=== PATIENT | female | born 1970 | race Caucasian/White ===

== ENCOUNTER 2024-02-08 04:40 | Inpatient (IN) | payer MEDICARE, OTHER, SELFPAY ==
[2024-02-08] VITALS (70 sets, daily range): BP systolic 70–130; BP diastolic 40–94; BMI 13.8
--- NOTE | 2024-02-08 01:26 | ED.GENMED ---
History of Present Illness
General
Chief Complaint: Fever
Source: patient and ambulance crew
Exam Limitations: dementia
Time Seen by Provider: 02/08/24 01:22
Travel History
Have you had any contact with someone who has COVID-19?: No
Do you have any symptoms of coronavirus? Fever > 100 degrees, chills, cough, shortness of breath, sore throat, loss of taste or smell, muscle aches, or headache?: Yes
Symptoms:: fever
History of Present Illness
History of Present Illness:
See MDM
Past History
Past History
ED Past Medical History: Hypercholesterolemia, Seizures, Psychiatric (Developmental delay, schizophrenia, bipolar disorder), Other (Chronic ambulatory dysfunction/wheelchair bound, scoliosis, chronic hypotension maintained on midodrine, UTI,
elevated LFTs) and Other (History of developmental delays, hyperlipidemia, indigestion, hypotonia, scoliosis, anxiety, bipolar disorder)
ED Past Surgical History: Other (History of corrective surgery to both eyes, back surgery for scoliosis, some teeth removed, corrective ear surgery at age 6)
Social History
Tobacco: Non-smoker
Alcohol: None
Personal: Single
Living: halfway
Employment: Disabled
Family History
Family History: Unable to obtain
Phy Exam
Physical Exam
Physical Exam:
See MDM
Course
Orders/Labs/Results
Orders:
Orders
02/08/24 01:12
EKG [Electrocardiogram (*1)] Urgent
Reason for Study: Tachycardia
02/08/24 01:13
EKG- Treatment ONCE
02/08/24 01:22
CBC/With Diff [Complete Blood Count/With Diff] Urgent
CMP [Comprehensive Metabolic Panel] Urgent
Lactic Acid Q4H
Comment: ON ICE, CANCEL 2ND ORDER IF FIRST LACTIC ACID LEVEL <2
02/08/24 01:25
0.9% Sodium Chloride 1000 ml [Nss] 1,000 ml IV BOLUS
CR Chest Portable - 1 View Urgent
Comment:
Reason For Exam: Fever, cough
Reason Study Needs to be Portable: Unable to Transport
02/08/24 01:27
COVID-19 Antigen Urgent
Source: Nasal Swab
Influenza A+B Rapid Molecular Urgent
ABEBE Source: Nasal Swab
Specimen Description:
02/08/24 01:42
Blood Culture Q30M
ABEBE Source: Blood/Venous
Specimen Description:
Comment: FROM 2 SEPARATE SITES
Blood Culture Q30M
ABEBE Source: Blood/Venous
Specimen Description:
Comment: FROM 2 SEPARATE SITES
02/08/24 02:00
CT Abd/pelvis W Iv Cont Urgent
Comment:
Reason For Exam: general abd pain, fever
02/08/24 02:28
0.9% Sodium Chloride 1000 ml [Nss] 1,000 ml IV BOLUS
Calcium Gluconate IV [Calcium Gluconate 10% 10 ml] 4.65 meq IV NOW STA
02/08/24 02:46
Urinalysis Reflex To Culture Urgent
Date Specimen was Collected: 02/08/24
Time Specimen was Collected: 02:02
Urine Microscopic Reflex Cult Urgent
Urine Culture Urgent
ABEBE Source: U
Specimen Description:
Date Specimen was Collected: 02/08/24
Time Specimen was Collected: 02:02
02/08/24 03:39
Dextrose 50%-Water [Dextrose 50% Syringe] 12.5 grams IV NOW STA
Abnormal Lab Results
02/08/24 02/08/24
01:22 02:46
RBC 3.32 L 10^6/uL
(4.20-5.40)
Hgb 10.7 L g/dL
(12.0-16.0)
Hct 29.8 L %
(37.0-47.0)
MCH 32.2 H pg
(27.0-31.0)
RDW 15.3 H %
(11.5-14.5)
MPV 10.5 H fL
(7.4-10.4)
Abs Immat Gran (auto) 0.1 H 10^3/uL
(0-0.05)
Immature Gran % 0.9 H %
(0-0.5)
Sodium 126 L mmol/L
(135-145)
Chloride 92 L mmol/L
(98-107)
Creatinine 0.5 L mg/dL
(0.6-1.0)
Glucose 63 L mg/dl
(70-99)
Calcium 6.9 L* mg/dl
(8.4-10.2)
Total Protein 4.5 L g/dl
(6.3-8.2)
Albumin 1.9 L g/dl
(3.5-5.0)
Leukocyte Esterase Rfl Trace A
(Negative)
Urine WBC (Reflex) 11-15 A /HPF
(0-5)
Urine Bacteria (Reflex) Moderate A
(Negative)
02/08/24 01:22
02/08/24 01:22
Vital Signs
Initial and Last Documented VS:
Initial Vital Signs
Temp Pulse Resp BP Pulse Ox
100.7 F H 92 19 92/60 98
02/08/24 01:14 02/08/24 01:14 02/08/24 01:14 02/08/24 01:14 02/08/24 01:14
Last Documented Vital Signs
Temp Pulse Resp BP Pulse Ox
100.7 F H 94 20 123/70 96
02/08/24 01:14 02/08/24 02:45 02/08/24 02:45 02/08/24 02:45 02/08/24 03:21
MDM/Problems Addressed
Differential Diagnosis Includes:
HPI and MDM Narrative:
53-year-old female presenting with fever and cough. Patient coming from nursing facility. Patient found to have a low blood pressure. She was given Tylenol prior to arrival.
Patient does appear to have mental delay. She does not offer much. She is frail and has rhonchorous breath sounds.
Physical exam
General: Weak and frail
HEENT: protecting airway. Dry mucous membranes
Neck: appears supple
CV: No evidence of cyanosis. Regular rate and rhythm
Resp: No accessory muscle use. Scattered rhonchi
Abd: Non-distended. Mild epigastric tenderness
Extremities: No deformities
Neuro: alert
Psych: flat affect
Skin: Warm
Problems Addressed including Acute and Chronic Conditions affecting care:
1. Fever
Acuity: acute
Prognosis: stable
Details: Patient given Tylenol prior to arrival. Will continue to monitor
2. Cough
Acuity: acute
Prognosis: stable
Details: Will check viral testing and chest x-ray
3. Hypotension
Acuity: acute
Prognosis: stable
Details: Likely in the setting of fever. Will obtain blood cultures lactic acid. IV fluids started
4. Hypocalcemia
Acuity: acute
Prognosis: unstable
Details: Patient given dose of IV calcium gluconate
5. Hypoglycemia
Acuity: Acute
Prognosis: Unstable
Details: Likely in the setting of malnourishment. Will give amp of glucose
Updates
Chest x-ray clear. Urinalysis seems contaminated and likely negative.
At this point, CT abdomen/pelvis performed which shows evidence of enterocolitis which could answer fever.
Given her lab abnormalities and malnourished state, will admit
Differential Diagnosis (but not limited to): COVID, influenza, pneumonia, sepsis
Testing considered: CT abdomen pelvis but no significant tenderness noted
Drug therapy (if applicable): OTC meds, please see d/c instruction regarding Rx drugs
Amount and/or Complexity of Data Reviewed
Clinical info obtained from: Patient
External data reviewed: N/A
Labs I independently reviewed (but not limited to): Hyponatremia, hypocalcemia, hypoglycemia
Radiology: X-ray independently reviewed: Chest x-ray clear
The CT scan was personally and independently reviewed. In addition, official CT report reviewed.
Pulse Ox: not hypoxic
EKG independently reviewed: Sinus rhythm, normal axis, no STEMI, artifact noted
Elevator Erector Helper: Sinus rhythm
Critical Care: Sinus rhythm
Risk of Complication:
Social Determinants of health: Poor social support
Discussed with other providers: Hospitalist
Escalation of Care includes Admit/Obs: Given the malnourished state with lab abnormalities, will admit
Occasional wrong word or 'sound a like' substitutions may have occurred due to the inherent limitations of voice recognition software. Read the chart carefully and recognize, using context, where substitutions have occurred.
*Critical Care Note
Total Time (30-74mins, 75-104mins- exclusive of procedures): Not Applicable
ED Attending Note
-
Portions of this chart may have been created with voice recognition software.� Occasional wrong word or��sound alike� substitutions may have occurred due to the inherent limitations of voice recognition software.
Discharge Plan
Departure
Patient Disposition: Admit
Date of Disposition: 02/08/24
Time of Disposition: 03:43
Admit to: Med/Surg
Presentation/result/management discussed w/ accepting MD/DO: Hospitalist
Discharge Problem:
Enterocolitis, Hypocalcemia, Caloric malnutrition, Hyponatremia, Hypoglycemia
Prescriptions:
No Action
benztropine 0.5 MG tablet
0.5 mg PO TID
risperidone 1 mg Tablet
1 mg PO DAILY
fluoxetine 20 mg capsule
20 mg PO BID
calcium carbonate-vitamin D3 [Oyster Shell Calcium-Vit D3] 500 mg-5 mcg (200 unit) Tablet
1 tab PO TID Qty: 0
magnesium oxide 500 mg Tablet
500 mg PO BID 30 Days Qty: 60 0RF
midodrine 5 mg Tablet
5 mg PO TID@0800,1300,1800 30 Days Qty: 90 0RF
acetaminophen 325 mg Tablet
650 mg PO Q4H PRN (Reason: mild pain/temp>100)
alprazolam 0.5 mg tablet
0.5 mg PO DAILY
aspirin 81 mg Tablet,Chewable
81 mg PO DAILY Qty: 90 0RF
multivitamin Tablet
1 tab PO DAILY
divalproex 250 mg Tablet,Delayed Release (Dr/Ec)
500 mg PO HS
divalproex 250 mg tablet,delayed release (DR/EC)
250 mg PO DAILY
magnesium hydroxide [Milk of Magnesia] 400 mg/5 mL Suspension
30 ml PO DAILY PRN (Reason: constipation)
bisacodyl [Dulcolax (bisacodyl)] 10 mg Suppository
10 mg [place] DAILY PRN (Reason: if mom ineffective)
Fleet Enema 19-7 gram/118 mL Enema
118 ml [place] DAILY PRN (Reason: if dulcolax ineffective)
potassium chloride 10 mEq tablet extended release
10 meq PO HS Qty: 30 0RF
Referrals:
Sean Ray I., DO [Family Provider] -
Interventions
Interventions:
*Risk Screen - Suicide Last Done: 02/08/24 01:14
*General Assessment Last Done: 02/08/24 01:14
*Neglect/Abuse Screening Last Done: 02/08/24 01:14
ED- Fall Risk Assessment Last Done: 02/08/24 02:02
*ED COVID-19 Vaccine History Last Done: 02/08/24 01:14
ED- Neurological Assessment Last Done: 02/08/24 02:02
ED-Skin Assessment Last Done: 02/08/24 02:02
[2024-02-08] MEDS: NSS 1000 IV ×2 (01:29→02:38)
[2024-02-08 01:36] LABS: % Eosinophils 0.1 % (0-6); % Immature Granulocytes 0.9 % (0-0.5); % Lymphocytes 32.7 % (20.5-51.1); % Monocytes 4.7 % (1.7-9.3); % Neutrophils 60.6 % (42.2-75.2); Absolute Basophils 0.1 10^3/uL (0-0.2); Absolute Immature Granulocytes 0.1 10^3/uL (0-0.05); Absolute Lymphocytes 2.7 10^3/uL (1.2-3.4); Absolute Monocytes 0.4 10^3/uL (0.1-0.6); Absolute Neutrophils 4.9 10^3/uL (1.4-6.5); Hematocrit 29.8 % (37.0-47.0); Hemoglobin 10.7 g/dL (12.0-16.0); Mean Corp Hgb Conc. 35.9 g/dL (33.0-37.0); Mean Corpuscular Hgb 32.2 pg (27.0-31.0); Mean Corpuscular Volume 89.8 fL (81.0-99.0); Mean Platelet Volume 10.5 fL (7.4-10.4); Nucleated Red Blood Cells % 0 %; Platelet Count 241 10^3/uL (130-400); Red Blood Cell Count 3.32 10^6/uL (4.20-5.40); Red Cell Dist. Width 15.3 % (11.5-14.5); White Blood Cell Count 8.1 10^3/uL (4.8-10.8)
[2024-02-08 01:51] LABS: COVID-19 Antigen Negative (Negative)
[2024-02-08 02:13] LABS: Lactic Acid 1.5 mmol/L (0.7-2.0)
[2024-02-08 02:26] LABS: ALT (SGPT) 20 U/L (0-35); AST (SGOT) 30 U/L (14-36); Albumin 1.9 g/dl (3.5-5.0); Alkaline Phosphatase 109 U/L (38-126); Blood Urea Nitrogen 15 mg/dl (7-17); Calcium 6.9 mg/dl (8.4-10.2); Carbon Dioxide 28 mmol/L (22-30); Chloride 92 mmol/L (98-107); Glucose 63 mg/dl (70-99); Potassium 4.7 mmol/L (3.5-5.1); Sodium 126 mmol/L (135-145); Total Bilirubin 0.4 mg/dl (0.2-1.3); Total Protein 4.5 g/dl (6.3-8.2); eGFR > 60.00
[2024-02-08] MEDS: CALCIUM GLUCONATE 10% 10 ML 4.65000000000000036 MEQ IV (02:38)
[2024-02-08 02:56] LABS: Urine Albumin Trace (Neg - Trace); Urine Bilirubin Negative (Negative); Urine Character Clear (Clear); Urine Color Yellow; Urine Glucose Negative (Negative); Urine Ketone Negative (Negative); Urine Leukocyte Trace (Negative); Urine Nitrite Negative (Negative); Urine Occult Blood Negative (Negative); Urine Specific Gravity 1.005 (<1.030); Urine Urobilinogen Negative (Neg - 1+)
[2024-02-08 03:12] LABS: Urine Amorphous Seen; Urine Squamous Cell >30 /LPF (Few)
[2024-02-08 03:13] LABS: Urine Red Blood Cell 0-2 /HPF (0-2)
[2024-02-08 03:14] LABS: Urine Bacteria Moderate (Negative); Urine Urothelial Cell >30 /LPF (FEW)
[2024-02-08] MEDS: DEXTROSE 50% SYRINGE 12.5 GRAMS IV (03:47)
--- NOTE | 2024-02-08 04:32 | HPS.HSE ---
Family Physician
-
Family Physician: Sean Ray
Chief Complaint
-
Fever / Hypotension
History of Present Illness
Patient is a 53y F with PMH significant for developmental delay, schizophrenia and chronic malnutrition who presents to ED from local [facility] for evaluation for fever and hypotension. History from the patient is limited due to baseline mental status.
Patient was previously hospitalized here at in November of this year for aspiration pneumonia with resultant septic shock. There wa discussion of possible PEG tube placement at that time; however, patient seemed to indicate that she did not wish
for this and she had sepsis-related thrombocytopenia that precluded prompt placement in any event.
Patient returned to the [facility] on a pureed diet with thin liquids.
Patient was noted this evening to have fever at the [facility] (? value) and low BP. She was sent to the ED for further evaluation.
In the ED, patient is awake and responds to questions intermittently. She denies any pain at present. She denies any recent cough, dyspnea, N/V/D, etc.
Medical History
Past Medical History
Past Medical History: Reports Other
Additional Past Medical History:
Hypercholesterolemia,
Seizures,
Developmental delay,
schizophrenia,
bipolar disorder
Chronic ambulatory dysfunction - wheelchair bound,
scoliosis,
chronic hypotension maintained on midodrine,
UTI,
elevated LFTs
hyperlipidemia,
indigestion,
hypotonia,
anxiety,
bipolar disorder
History of corrective surgery to both eyes,
back surgery for scoliosis,
some teeth removed,
corrective ear surgery at age 6
Dysphagia, unspecified type� �
Idiopathic hypotension
Generalized weakness� �
Past Surgical History: Reports Other
Additional Past Surgical History:
See above
Social History
Unable to obtain full social history at this time due to: Other (Cognitive impairment)
Living: Halfway
Family History
Family History: Unable to Obtain
Allergies / Home Medications
Allergies reflects when Allergies were last updated in [place] [facility].
Home Medications with original date entered in [place] [facility]
Allergy/Medication List:
Allergies
Allergy/AdvReac Type Severity Reaction Status Date / Time
pollen extracts Allergy Stuffy Verified 02/08/24 01:11
nose -
seasonal
lamotrigine [From Lamictal] AdvReac generalized Verified 02/08/24 01:11
weakness,
change in
mental
status
trazodone AdvReac generalized Verified 02/08/24 01:11
weakness,
change in
mental
status
Home Medications
benztropine 0.5 mg tablet 0.5 mg PO TID Neurological Condition 01/19/13
risperidone 1 mg tablet 1 mg PO DAILY Mental Health/Anxiety 10/17/22
fluoxetine 20 mg capsule 20 mg PO BID Depression 12/11/22
calcium carbonate 500 mg-vitamin D3 5 mcg (200 unit) tablet (Oyster Shell Calcium-Vitamin D3) 1 tab PO TID vitamin ##0 12/13/22
magnesium oxide 500 mg PO BID 30 days #60 tabs 12/25/22
midodrine 5 mg tablet 5 mg PO TID@0800,1300,1800 30 days #90 tabs 12/25/22
acetaminophen 325 mg tablet 650 mg PO Q4H PRN mild pain/temp>100 03/20/23
alprazolam 0.5 mg tablet 0.5 mg PO DAILY Mental Health/Anxiety 03/20/23
aspirin 81 mg chewable tablet 81 mg PO DAILY #90 tabs 03/24/23
divalproex 250 mg tablet,delayed release 250 mg PO DAILY Seizures 07/25/23
divalproex 250 mg tablet,delayed release 500 mg PO HS Seizures 07/25/23
multivitamin 1 tab PO DAILY Supplement 07/25/23
bisacodyl 10 mg rectal suppository (Dulcolax (bisacodyl)) 10 mg [place] DAILY PRN if mom ineffective 11/24/23
magnesium hydroxide 400 mg/5 mL oral suspension (Milk of Magnesia) 30 ml PO DAILY PRN constipation 11/24/23
sodium phosphates 19 gram-7 gram/118 mL enema (Fleet Enema) 118 ml [place] DAILY PRN if dulcolax ineffective 11/24/23
potassium chloride 10 mEq tablet,extended release 10 meq PO HS #30 tabs 12/01/23
Review of Systems
-
History Source: Patient (Limited ROS due to baseline cognitive impairment.)
A 12 point ROS was completed and negative except as noted: Yes
Cardiac: Denies Chest Pain
Abdomen/GI: Denies Abdominal Pain, Nausea, Vomiting or Diarrhea
: Denies Dysuria
Neurological: Denies Headache
Physical Exam
Vital Signs
Vital Signs
Temp Pulse Resp BP Pulse Ox
100.7 F H 82 21 76/48 94
02/08/24 01:14 02/08/24 04:15 02/08/24 04:15 02/08/24 04:15 02/08/24 04:15
Physical Exam
General: Other (Frail, cachectic 53y F who is chronically ill-appearing. Not in acute distress. Pos pallor.)
HEENT: Moist mucous membranes
Respiratory: Other (Coarse breath sounds throughout - greater at bases. Poor cough. No rales.)
Cardiac: S1/S2 and Regular Rhythm; No Murmur
GI: Soft, Non Tender, Non Distended and Normal Bowel Sounds
Musculoskeletal: No Clubbing, No Cyanosis and Other (Non pitting edema b/l LEs.)
Neuro: Awake and Alert
Laboratory Results
-
02/08/24 01:22
02/08/24 01:22
Laboratory Results
Lactic Acid Cancelled 02/08/24 05:15
Total Bilirubin 0.4 mg/dl (0.2-1.3) 02/08/24 01:22
AST 30 U/L (14-36) 02/08/24 01:22
ALT 20 U/L (0-35) 02/08/24 01:22
Alkaline Phosphatase 109 U/L (38-126) 02/08/24 01:22
Impression/Plan
-
A/P: Patient is a 53y F with PMH significant for schizophrenia, cognitive impairment, chronic malnutrition and seizure disorder who presents to ED for evaluatio nof fever and hypotension.
Suspected Sepsis
- Admit for further evaluation and treatment.
- Patient presents with reported fever at [facility] and temp here of 100.7.
- Hypotensive with BP = 76/48 at present.
- Similar presentation last admission with suspected source = aspiration pneumonia.
- Potential current sources include recurrent aspiration, urine, GI.
- Supportive care including IVFs +/- pressor support.
- Continue usual midodrine for BP support.
- Follow for clinical improvement.
Aspiration Pneumonia / Pneumonitis
Chronic Dysphagia
- Coarse breath sounds on exam despite relatively unremarkable CXR.
- High risk for recurrent aspiration.
- Aspiration precautions.
- IV abx with Zosyn for now. Follow-up culture data.
- Repeat Speech evaluation.
- Note that PEG tube was being considered during prior admission - though it was unclear whether or not patient wished for this.
Abnormal UA
Abnormal CT Scan
- Other potential sources include urine with abnormal UA (though contaminated specimen) and GI with enterocolitis on CT.
- Follow-up urine culture data. Patient denies any urinary symptoms - but ? reliability of history.
- CT findings may be consistent with anasarca related to malnutrition / hypoalbuminemia.
- Monitor for any loose stools, etc. Check stool studies.
Hyponatremia
Hypocalcemia
Hypoglycemia
Hypoalbuminemia
- Likely related to chronic malnutrition.
- Corrected calcium today is 8.6 - low normal.
- IVF support including supplemental dextrose.
- Check TFTs, AM cortisol, etc.
- Hydrocortisone BID for now and follow for improvement in BP, labs / lytes, etc.
- Hold SSRI acutely.
Seizure Disorder
- No evidence of recent / active seizures.
- Continue AEDs without changes / interruption.
- Check Depakote levels.
- Monitor for any breakthrough seizure activity.
Schizophrenia
Bipolar Disorder
Cognitive Impairment
- Stable. Continue risperidone and benztropine.
- Hold SSRI acutely given hyponatremia.
- Follow for any acute changes in mood.
Severe Protein-Calorie Malnutrition
- Chronic / ongoing issue.
- IVF support with dextrose as noted above
- Dietary evaluation / Speech evaluation.
Anemia of Chronic Disease
- Stable. Hgb is at / near known baseline.
- Follow for any changes in H&H.
- Check iron studies, B12 etc.
DVT Prophylaxis: SCDs
Code Status: Full
[2024-02-08 04:53] LABS: Glucose - Point of Care 88 mg/dl (70-99)
--- NOTE | 2024-02-08 06:40 | PTCARENOTE ---
pt adm to ICU from ED, pt responsive, mental delay, difficult to understand at times but able to state correct name and birthday, appropriate interaction. SR HR 80s; B/L IV intact, IVF bolus infusing from ED. CHG cloths, rash on back, appears to be
old/dried shingles. BDoughertyNP aware/assessed. purewick placed. unable to obtain labs- 3 unsuccessful sticks total by 2RN- phlebotomy paged. BP 70s/40s MAP 50s after 2L from ED- DScammahornNP contacted- 500cc NSS bolus ordered/started. pt resting
w/eyes closed/bed alarm on.
[2024-02-08] MEDS: D5/0.9% SODIUM CHLORIDE 1000 IV ×2 (06:49→17:51)
[2024-02-08] MEDS: NSS 500 IV (06:52)
--- NOTE | 2024-02-08 08:00 | PTCARENOTE ---
Received pt @ change of shift. Drowsy/opens eyes spontaneously. Ox1 self; cognitive delay @ baseline; reoriented to place/time. Slow/garbled speech pattern, difficult to understand; approp @ x's. SR on monitor. SpO2 96% on RA. Auscultated dim breath
sounds throughout. Occ PUBLIC [employer] SUPER[employer]OR cough. Swallow screen completed, pt. passed; meds admin PO one @ time w thins. No coughing noted w PO intake. +BS; cachectic. Inc b/b. Purewick in plac. Scabbed rash noted on back. IVF and bolus infusing via #22 L FA.
SBP's remain in 70's w MAPs in 50's, low 60's- levo gtt started and titrated up to keep MAP>65- see flow sheet. #24 patent, dressing c/d/i. Unable to establish more PIV access x 2 RN and unable to get AM labs; phlebotomy paged. Repositioned per
protocol. Bed alarm active.
[2024-02-08] MEDS: ProAmatine 5 MG PO ×3 (08:14→17:51)
[2024-02-08] MEDS: NSS (PRESERVATIVE FREE) 10 ML IV (08:15)
[2024-02-08] MEDS: PROTONIX IV 40 MG IV (08:15)
[2024-02-08] MEDS: COGENTIN 0.5 MG PO ×3 (08:15→22:22)
[2024-02-08] MEDS: RISPERDAL 1 MG PO (08:15)
[2024-02-08] MEDS: DEPAKOTE (12 HR RELEASE) 250 MG PO (08:15)
[2024-02-08] MEDS: SOLU-CORTEF 50 MG IV (08:15)
[2024-02-08] MEDS: ZOSYN 50 IV ×3 (08:20→20:03)
[2024-02-08] MEDS: LEVOPHED 250 IV ×2 (08:21→16:46)
--- NOTE | 2024-02-08 08:21 | CON.INTV ---
Consultation
Consultation Request
Date/Time Consultation Requested: 02/08/2024550
Date/Time Consultation Performed: 02/08/2024818
Requesting Provider: Dr. Mai
Performing Provider: Dr. Pal
Reason for Consultation: Shock
Medical History
-
Chief Complaint: Fever/Hypotension
History of Present Illness:
53-year-old F with PMHx of chronic hypotension on midodrine seizures, developmental delay, schizophrenia, bipolar disorder and history of UTI who p/w hypotension from her NH ([facility]) and fever to 103F. Patient is poor historian and unable
to obtain accurate HPI as she mumbles when speaks with incoherent speech. Patient was recently in November of this year for aspiration ammonia with septic shock. PEG tube was discussed at that time however this was not done. Patient had
thrombocytopenia as well during that time which precluded prompt placement at that time. In the ER she was febrile to 100.7 �F, pulse rate 92, breathing at 19 breaths/min, hypotensive to 92/60 and saturating 98% on room air. 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
Pt had a wet cough that was reported. Labs showed WBC 8.1, Hb 10.7, platelets 241, sodium 126, chloride 92, glucose 63, calcium 6.9 and albumin level 1.9. Cortisol was checked given concern for possible adrenal insufficiency and her level was 120.
UA showed moderate urine bacteria with 11�15 urine WBC and trace leukocyte esterase. Her COVID antigen is negative. CXR showed no acute cardiopulmonary process, and CT abdomen/pelvis showed diffuse colonic and small bowel wall thickening which
could represent enterocolitis with no intestinal obstruction or free air seen. Patient given calcium gluconate, D50, and 2L of IVF with NS 0.9%. Due to concern for aspiration and sepsis with hypotension, she was TRX to ICU for further care.
Pt seen this AM. BP 91/53 and HR 75. She is on Levophed at 4mcg/min. She is on room air, breathing comfortably and SpO2 94%. Of note, pt was on pureed diet with thin liquids at the [facility], as per nursing. She is answering my questions but
difficult to comprehend her speech due to her low tone voice despite being encouraged to increase the volume of her words, and her words are incoherent. She appears to not be in any acute distress.
PMHx: Hypercholesterolemia, seizures, developmental delay, schizophrenia, bipolar disorder, chronic ambulatory dysfunction (wheelchair-bound), chronic hypotension on midodrine, scoliosis, history of UTI, anxiety, bipolar disorder, history of
dysphagia
PSHx: Corrective ear surgery (age 6), teeth removal, back surgery for scoliosis, corrective surgery for both eyes, laparoscopic cholecystectomy
Past Medical History
Past Medical History: Other (above as per HPI)
Past Surgical History: Other (above as per HPI)
Social History
Tobacco: Non-smoker
Alcohol: None
Drug: None
Living: Long Term
Family History
Family History: Reviewed & Not Pertinent
Allergies / Home Medications
Allergies
Allergy/AdvReac Type Severity Reaction Status Date / Time
pollen extracts Allergy Stuffy Verified 02/08/24 01:11
nose -
seasonal
lamotrigine [From Lamictal] AdvReac generalized Verified 02/08/24 01:11
weakness,
change in
mental
status
trazodone AdvReac generalized Verified 02/08/24 01:11
weakness,
change in
mental
status
Home Medications
Medication Instructions Recorded Confirmed Last Taken Type
benztropine 0.5 mg tablet 0.5 mg PO TID Neurological 01/19/13 02/08/24 01/19/13 09:00 History
Condition
risperidone 1 mg tablet 1 mg PO DAILY Mental Health/Anxiety 10/17/22 02/08/24 Unknown History
fluoxetine 20 mg capsule 20 mg PO BID Depression 12/11/22 02/08/24 Unknown History
calcium carbonate 500 mg-vitamin 1 tab PO TID vitamin ##0 12/13/22 02/08/24 Unknown History
D3 5 mcg (200 unit) tablet (Oyster
Shell Calcium-Vitamin D3)
magnesium oxide 500 mg PO BID 30 days #60 tabs 12/25/22 02/08/24 Unknown Rx
midodrine 5 mg tablet 5 mg PO TID@0800,1300,1800 30 days 12/25/22 02/08/24 Unknown Rx
#90 tabs
acetaminophen 325 mg tablet 650 mg PO Q4H PRN mild 03/20/23 02/08/24 02/08/24 History
pain/temp>100
alprazolam 0.5 mg tablet 0.5 mg PO DAILY Mental 03/20/23 02/08/24 Unknown History
Health/Anxiety
aspirin 81 mg chewable tablet 81 mg PO DAILY #90 tabs 03/24/23 02/08/24 Unknown Rx
divalproex 250 mg tablet,delayed 250 mg PO DAILY Seizures 07/25/23 02/08/24 Unknown History
release
divalproex 250 mg tablet,delayed 500 mg PO HS Seizures 07/25/23 02/08/24 Unknown History
release
multivitamin 1 tab PO DAILY Supplement 07/25/23 02/08/24 Unknown History
bisacodyl 10 mg rectal suppository 10 mg HI DAILY PRN if mom 11/24/23 02/08/24 Unknown History
(Dulcolax (bisacodyl)) ineffective
magnesium hydroxide 400 mg/5 mL 30 ml PO DAILY PRN constipation 11/24/23 02/08/24 Unknown History
oral suspension (Milk of Magnesia)
sodium phosphates 19 gram-7 118 ml HI DAILY PRN if dulcolax 11/24/23 02/08/24 Unknown History
gram/118 mL enema (Fleet Enema) ineffective
potassium chloride 10 mEq 10 meq PO HS #30 tabs 12/01/23 02/08/24 Unknown Rx
tablet,extended release
Review of Systems
-
Unable to Obtain full review of systems at this time due to: Acuity
Vitals / Labs / Diagnostic Testing
Vital Signs
Temp Pulse Resp BP Pulse Ox
97.6 F 82 14 77/47 96
02/08/24 07:53 02/08/24 08:14 02/08/24 07:49 02/08/24 08:14 02/08/24 08:33
Microbiology
02/08/24 01:27 Nasal Swab Influenza Types A & B (LANA) - Final
Negative for Influenza A & B, NAAT
Negative results must be combined with clinical observations
and patient history.
Nucleic Acid Amplification test (NAAT)performed on the
[employer] platform.
Diagnostic Testing:
Physical Exam
-
HEENT: Normocephalic and Anicteric
Cardiovascular: S1/S2 and Peripheral Edema (negative)
Respiratory: Wheeze (negative), Rales (Bialterally (L>R)), Rhonchi (negative) and Non-Labored Respirations
GI: Soft, Non Distended and Non Tender
Neurology: Awake and Alert
Skin: Warm and Dry
General: Comfortable and Sweats (negative)
Assessment
-
Assessment: 53-year-old F with PMHx of chronic hypotension on midodrine seizures, developmental delay, schizophrenia, bipolar disorder and history of UTI who p/w hypotension from her NH ([facility]) and fever to 103F. Patient is poor historian
and unable to obtain accurate HPI as she mumbles when speaks with incoherent speech. Patient was recently in November of this year for aspiration ammonia with septic shock. PEG tube was discussed at that time however this was not done. Patient had
thrombocytopenia as well during that time which precluded prompt placement at that time. In the ER she was febrile to 100.7 �F, pulse rate 92, breathing at 19 breaths/min, hypotensive to 92/60 and saturating 98% on room air. 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
Pt had a wet cough that was reported. Labs showed WBC 8.1, Hb 10.7, platelets 241, sodium 126, chloride 92, glucose 63, calcium 6.9 and albumin level 1.9. Cortisol was checked given concern for possible adrenal insufficiency and her level was 120.
UA showed moderate urine bacteria with 11�15 urine WBC and trace leukocyte esterase. Her COVID antigen is negative. CXR showed no acute cardiopulmonary process, and CT abdomen/pelvis showed diffuse colonic and small bowel wall thickening which
could represent enterocolitis with no intestinal obstruction or free air seen. Patient given calcium gluconate, D50, and 2L of IVF with NS 0.9%. Due to concern for aspiration and sepsis with hypotension, she was TRX to ICU for further care.
Chronic medical conditions EXCELLENCE LEADER:Hypercholesterolemia, seizures, developmental delay, schizophrenia, bipolar disorder, chronic ambulatory dysfunction (wheelchair-bound), chronic hypotension on midodrine, scoliosis, history of UTI, anxiety, bipolar
disorder, history of dysphagia
Impression:
#Shock - suspected sepsis due to enterocolitis vs aspiration vs UTI in setting of hypoalbuminemia
#Abnormal CT Abd/Pelvis with diffuse colonic and small bowel wall thickening suspicious for enterocolitis
#Anemia
#Hx of thrombocytopenia
#Hypoglycemia
#Hypochloremic, hyponatremia - likely due to reduced PO intake (this is further supported by pt's hypoglycemia in setting of normal random cortisol)
#Hypoalbuminemia likely due to malnutrition
#Abnormal urinalysis suspicious for UTI
#Developmental delay with Hx of dementia
#Chronic hypotension on midodrine as an outpatient
Plan:
- Continue Zosyn
- Continue vasopressors with levophed and add vasopressin with goal MAP>65
- Follow up infectious workup with sputum Cx, urine Cx and blood Cx X2
- Check urine antigens for legionella and Strep PNA
- Maintain euglycemia with goal BG 140-180
- Insert DHT and start tube feeds
- ONCOLOGY COORDINATOR and will likely need PEG given concern for chronic aspiration; otherwise start diet as per ONCOLOGY COORDINATOR
- Once DHT is inserted and placement confirmed, continue PO meds including midodrine, depakote and cogentin
- Once tube feeds are started then stop D5NS gtt
- Start supplemental albumin with goal serum albumin level >3g/dL
- Avoid narcotics or other sedating medications
- Replete K>4, Mg>2
- Aspiration precautions
- SW consult given pt is from [facility]
- stress ulcer ppx: N/A
- DVT ppx: Start LMWH 30mg qPM
Critical care statement: A total of 40 minutes of critical care time was provided for this patient today. This includes management of unstable vital signs, evaluation of the patient at bedside, reviewing the patient's pertinent medical records
including radiographs, microbiology, laboratory evaluations, and discussion with primary team, consultants, pharmacy, nutrition, physical therapy, case management, charge nurse, critical care nursing, and respiratory therapy.
Data:
CT A/P with IV contrast 02-08-2024: MARKEDLY LIMITED STUDY DUE TO NUMEROUS FACTORS.
Gross findings suggesting some diffuse colonic and some small bowel wall thickening which could represent enterocolitis. No intestinal obstruction or free air.
CXR 02-08-2024: No acute cardiopulmonary process.
[2024-02-08 11:10] LABS: Hematocrit 26.9 % (37.0-47.0); Hemoglobin 9.6 g/dL (12.0-16.0); Mean Corp Hgb Conc. 35.7 g/dL (33.0-37.0); Mean Corpuscular Hgb 32.1 pg (27.0-31.0); Mean Platelet Volume 10.3 fL (7.4-10.4); Platelet Count 252 10^3/uL (130-400); Red Blood Cell Count 2.99 10^6/uL (4.20-5.40); Red Cell Dist. Width 15.5 % (11.5-14.5); White Blood Cell Count 9.4 10^3/uL (4.8-10.8)
[2024-02-08 11:23] LABS: INR 1.44; PT 17.3 Sec (11.4-14.6)
[2024-02-08 11:24] LABS: APTT 37.6 Sec (23.4-35.0)
[2024-02-08 11:31] LABS: Depakane 31.1 ug/ml (50.0-120.0)
--- NOTE | 2024-02-08 11:34 | PTOTSP ---
ST Dysphagia Evaluation
Moderate oral and known pharyngeal dysphagia; VFSS 11/2023 recommendations for puree/moderately-thick liquid v. thin liquids at that time. Cog-linguistic deficits; baseline developmental delay
Pt received asleep awoke to verbal/tactile stim and repositioning to full upright in bed. Frequent unintelligible verbalizations throughout eval required redirection. She has significant dysphagia history and is known to [employer]CRET[employer]ER service from previous
admissions. Recommendations have previously been for puree/moderately-thick liquid v. thin liquids with known aspiration risk from VFSS x2 completed in the past. CXR this admission is clear and she is on room air. Per EMR, has been on puree diet
with thin liquids at her detention.
Conducted trials of puree and thin liquids. Demo adequate oral access/containment, prolonged bolus manipulation munch/chewing on puree bolus, tongue pumping for a-p transfers which were segmented and perseverative munching post swallow. Thin liquids
by straw sip and tsp; demo +draw up liquids by nozzle and swallow appears delayed. There was coughing 1 out of 10 opportunities.
1. Could maintain Puree (L4) and Thin liquids i/s/o known aspiration v. short term NPO/DHT, per physician
2. Maintain aspiration precautions and 1:1 feeding assist
3. Small bites, small/single sips by straw or by tsp and slow rate
4. Crush meds into apple sauce
5. If concern for aspiration or diet intolerance low threshold to d/c PO diet and reinstate NPO
6. CONCRETE LAYER following closely
D/w RN and physician re: eval findings and recommendations. Pending short term enteral access (DHT) and possible penitentiary enteral access.
[2024-02-08 12:13] LABS: Blood Urea Nitrogen 12 mg/dl (7-17); Calcium 6.6 mg/dl (8.4-10.2); Carbon Dioxide 24 mmol/L (22-30); Chloride 100 mmol/L (98-107); Glucose 108 mg/dl (70-99); Iron 62 ug/dl (37-170); Magnesium 1.6 mg/dl (1.6-2.3); Phosphorus 4.4 mg/dl (2.5-4.5); Potassium 3.5 mmol/L (3.5-5.1); Sodium 127 mmol/L (135-145); eGFR > 60.00
[2024-02-08 12:15] LABS: Percent Saturation 59 % (20-50); Total Iron Binding Capacity 105 ug/dl (265-497)
[2024-02-08 12:57] LABS: TSH Reflex To Free T4 1.25 uIU/ml (0.47-4.68)
[2024-02-08 13:13] LABS: Vitamin B12 > 1000 pg/ml (239-931)
--- NOTE | 2024-02-08 13:28 | VATNOTE ---
Right PICC placed for IV pressors. 1st CXR showed catheter curled in the subclavian vein redirected x 2 with catheter crossing over into the left subclavian. IR called to assist with catheter tip placement under fluro.
--- NOTE | 2024-02-08 14:00 | PTCARENOTE ---
R pramodraphael flakito placed @ 55cm; placement confirmed w CXR per Dr. Pal. VAT to bedside this afternoon, attempted to place PICC. Unable to get PICC in correct position. Dr. Pal aware and further orders received for IR telecom network manager to reposition PICC;
awaiting IR availability.
[2024-02-08 14:07] LABS: Glucose - Point of Care 166 mg/dl (70-99)
[2024-02-08] MEDS: FLEXBUMIN 100 IV ×2 (14:47→22:20)
--- NOTE | 2024-02-08 17:18 | W.PN.HOSP.TC ---
Addendum entered and electronically signed by Issa Kelley MD 02/08/24 23:01:
Attending Addendum-
I saw and evaluated the patient. I reviewed the resident�s note and agree with findings and plan as documented in the resident�s note.patient with very soft voice barely audible and comprehensible, states she fees weak but denies pain, h/o from
legal guardian present. Full 12 point ROS reviewed and negative except as documented Exam: Gen frail appearing heent- dobhoff in palce heart RRR lungs clear abd soft NT LE no edema Plan:
# Hypovolemic Shock- cont levophed and start vasopressin appreciate icu input, maintain MAP > 65, start albumin cont IVF dc solucortef c/s ID monitor closely in ICU
# Severe Electrolyte Imbalance- hypo- mg ca na- repeate patient is hypovolemic and hypoproteinemic - cont to monitor repeat labs in am
# Hypovolemic Hyponatremia- cont IVF repeat BMP in am
# Dysphagia and Severe PCM- place dobhoff start feeds, c/s GI for PEG placement speech on board
# Seizure D/O- cont meds
# Psych Bipolar Schizoaffective- cont meds t/c c/s psych for eval / medication review
Time spent coordinating care, review of plan of care with resident, review of records, med rec, consults, notes, labs, rads, d/w nursing, POA, speech ICU � 75 mins
Original Note:
Today's Communication/Plan
-
see a/p
Assessment / Plan
Assessment / Plan
A/P:� Patient is a 53y F with PMH significant for schizophrenia, cognitive impairment, chronic malnutrition and seizure disorder who presents to ED for evaluatio nof fever and hypotension.
# Sepsis secondary to enterocolitis versus aspiration pneumonitis versus UTI
# Chronic dysphagia
Chest x-ray in ED shows no acute pulmonary process.
Repeat chest x-ray shows no significant focal parenchymal opacification
Continue Zosyn
Continue vasopressors with levophed and�add vasopressin�with goal MAP>65
Follow up infectious workup with sputum culture, urine culture, blood culture x 2
aspiration precautions
Speech evaluation
ID consult
PEG given concern for chronic aspiration, will consult GI for placement
Insert DHT and start tube feeds
Start supplemental albumin with goal serum albumin level >3g/dL
UA and urine culture
#Hyponatremia
Na -127
IV fluids
Urine studies ordered
#Hypokalemia
Replete
#Hypomagnesemia
Replete
#Hypocalcemia
#Hypoglycemia
#Hypoalbuminemia
�- Likely related to chronic malnutrition.
�- Corrected calcium today is 8.6 - low normal. Monitor calcium level
�- IVF support including supplemental dextrose.
�- Check TFTs, AM cortisol, etc.
�- Hydrocortisone BID for now and follow for improvement in BP, labs / lytes, etc.
�- Hold SSRI acutely.
#Seizure Disorder
�- No evidence of recent / active seizures.
�- Continue AEDs without changes / interruption.
�- Check Depakote levels.
�- Monitor for any breakthrough seizure activity.
#Schizophrenia
Bipolar Disorder
Cognitive Impairment
�- Stable.� Continue risperidone and benztropine.
�- Hold SSRI acutely given hyponatremia.
�-Watch for adverse effects on psych meds
#Severe Protein-Calorie Malnutrition
�- Chronic / ongoing issue.
�- IVF support with dextrose as noted above
�- Dietary evaluation / Speech evaluation.
DVT Prophylaxis:�LMWH
Code Status:� Full
Anticipated Discharge: > 48 hours
Objective Data
-
Labs:
Laboratory Results
02/08/24
10:48
WBC 9.4
Hgb 9.6 L
Hct 26.9 L
Plt Count 252
PT 17.3 H
INR 1.44
APTT 37.6 H
Sodium 127 L
Potassium 3.5 D
Chloride 100
Carbon Dioxide 24
BUN 12
Creatinine 0.5 L
Glucose 108 H
Calcium 6.6 L*
Vital Signs:
Vital Signs
Temp Pulse Resp BP Pulse Ox
97.6 F 67 14 93/58 96
02/08/24 15:41 02/08/24 14:46 02/08/24 07:49 02/08/24 14:46 02/08/24 08:33
I&O
02/07/24 02/08/24 02/09/24
06:59 06:59 06:59
Intake Total 1802.5 / 1802.5
Output Total 550 / 550
Balance -550 / 50 1802.5 / 1802.5
Review of Systems
-
All other systems: Reviewed and negative (Except as documented)
Physical Exam
-
HEENT: Normocephalic and Anicteric
Respiratory: Rales
Cardiac: S1/S2 and Other (Coarse breath sounds throughout)
GI: Soft, Nontender and Nondistended
Musculoskeletal: No Clubbing and No Cyanosis
Neuro: Awake and Alert
Psych: Calm
Data Reviewed
-
Labs: Labs Reviewed by me and Discussed with Physician
[2024-02-08 17:44] LABS: Osmolality Urine 360 mOsm/kg (300-900)
[2024-02-08] MEDS: LOVENOX 30 MG SC (17:51)
[2024-02-08] MEDS: KCL ELIXIR 40 MEQ TUBE (17:51)
[2024-02-08] MEDS: MAGNESIUM OXIDE 500 MG TUBE (17:51)
[2024-02-08 18:02] LABS: Urine Sodium < 5 mmol/L (30-90)
[2024-02-08 18:16] LABS: Osmolality Urine 212 mOsm/kg (300-900)
--- NOTE | 2024-02-08 18:36 | PTCARENOTE ---
pt. transported to IR and back to rm [id number] s/p PICC repositioning; R DL PICC in correct position and ok to use per IR. IVF and levo gtt infusing via R DL PICC. Initiated TF- Osmo @ 20mL/hr w 25mL/hr H20 flush via R nare dobhoff. Pt/ repositioned.
Bed alarm active.
[2024-02-08 18:43] LABS: Urine Sodium 9 mmol/L (30-90)
[2024-02-08 18:52] LABS: Osmolality Serum 282 mOsm/kg (275-300)
--- NOTE | 2024-02-08 21:00 | PTCARENOTE ---
Rec'd pt resting in bed no s/s discomfort. Pt speaks very softly/mumbles, unable to make out words at this time. Shakes head no to pain. Afebrile. NSR on monitor. Levophed to maintain MAP goal 65 or greater. PICC line flushed/patent. Pulses
weak/palpable. IVF as ordered. Room air, nonproductive cough. Tube feeds via DHT. Purewick in place draining clear yellow urine. Will monitor.
[2024-02-08] MEDS: DEPAKENE 250 MG TUBE (22:23)
[2024-02-09] VITALS (51 sets, daily range): BP systolic 52–125; BP diastolic 29–89
[2024-02-09] MEDS: D5/0.9% SODIUM CHLORIDE 1000 IV (01:50)
[2024-02-09] MEDS: ZOSYN 50 IV ×4 (02:00→20:00)
[2024-02-09 05:01] LABS: Hematocrit 22.1 % (37.0-47.0); Hemoglobin 7.8 g/dL (12.0-16.0); Mean Corp Hgb Conc. 35.3 g/dL (33.0-37.0); Mean Corpuscular Hgb 32.4 pg (27.0-31.0); Mean Corpuscular Volume 91.7 fL (81.0-99.0); Nucleated Red Blood Cells % 0 %; Platelet Count 189 10^3/uL (130-400); Red Blood Cell Count 2.41 10^6/uL (4.20-5.40); Red Cell Dist. Width 15.7 % (11.5-14.5); White Blood Cell Count 6.6 10^3/uL (4.8-10.8)
--- NOTE | 2024-02-09 05:11 | DOWNTIME ---
There was a [employer] Client Graphic Manager Downtime on 02/09/2024 from 0100 to 02/09/2024 at 0322. Downtime documentation of patient's care, including medication administrations, has been reconciled in the electronic record per guidelines. Refer to the
patient's paper chart under the miscellaneous tab to see printed paper medication records and downtime forms.
[2024-02-09 05:27] LABS: ALT (SGPT) 14 U/L (0-35); AST (SGOT) 20 U/L (14-36); Albumin 2.1 g/dl (3.5-5.0); Alkaline Phosphatase 78 U/L (38-126); Blood Urea Nitrogen 5 mg/dl (7-17); Calcium 6.2 mg/dl (8.4-10.2); Carbon Dioxide 24 mmol/L (22-30); Chloride 107 mmol/L (98-107); Estimated Creatinine Clearance 62 ml/min; Glucose 136 mg/dl (70-99); Magnesium 1.7 mg/dl (1.6-2.3); Phosphorus 2.3 mg/dl (2.5-4.5); Potassium 3.1 mmol/L (3.5-5.1); Sodium 137 mmol/L (135-145); Total Bilirubin 0.3 mg/dl (0.2-1.3); Total Protein 4.2 g/dl (6.3-8.2); eGFR > 60.00
[2024-02-09 05:50] LABS: Absolute Neutrophils -Man Diff 3.7 10^3/uL (1.4-6.5); Band Neutrophils 18 % (0-3); Lymphocytes 37 % (20-51); Monocytes 6 % (2-9); Segmented Neutrophils 39 % (42-75)
[2024-02-09 05:51] LABS: Normal RBC Morphology Yes; Platelets Checked Yes; Total Cells Counted 100
[2024-02-09] MEDS: CALCIUM GLUCONATE 290 MG IV (06:26)
[2024-02-09] MEDS: FLEXBUMIN 100 IV (06:32)
--- NOTE | 2024-02-09 06:55 | CON.GI ---
Addendum entered and electronically signed by Diogo Franco MD 02/09/24 20:39:
I saw and examined the patient.
The PA's note was reviewed and I agree with the note.
Comment:
The pt is a 52 year old female with h/o seizures d/o, developmental delay, ambulatory dysfunction and chronic hypotension p/w fever and hypotention from her NH. Previously had sepsis/aspiration PNA and there was discussion for PEG placement but was
deferred due to thrombocytopenia and it appeared pt/guardian did not want the PEG. Now readmitted with fever and hypotension with concern for recurrent sepsis from aspiration.
Impression / Rec:
1. Recurrent sepsis from aspiration PNA - pt's guardian is agreeable for PEG now. Given pt's recurrent sepsis from aspiration, PEG would be indicated, although this is not a prevention of further possible aspiration. Will provide nutritional
support given her weight loss. Would defer PEG procedure until pt is clinically stable/optimized. Correct electrolyte derangements. Currently on levo, pitressin, and midodrine. Will follow to determine the suitable timing of her procedure.
Continue with DHT for now.
Original Note:
Consultation
-
Date/Time Consultation Requested: 02/08/24 1750
Date/Time Consultation Performed: 02/09/24 0830
Requesting Provider: Rafael Marcum MD Resident/Issa Rothman MD
Performing Provider: MARY Beckman, Diogo Franco MD
Reason for Consultation: entercolitis/dysphagia
Medical History
Chief Complaint / HPI
Chief Complaint: fever
History of Present Illness:
Pt is a 52 y/o woman with a hx of seizures, bipolar, developmental delay, ambulatory dysfunction, chronic hypotension [place] with admission in November with sepsis/PNA requiring pressors. During admission she had DHT placed. GI followed
during admission for possible peg. In discussion with patient and guardian patient had declined peg and also noted with significant thrombocytopenia and peg was held. She now returned with fever and hypotension requiring pressors with concern for
recurrent sepsis and aspiration. She is also noted with significant electrolyte imbalance and CT with noted some diffuse colonic and some small bowel wall thickening which could represent enterocolitis. No intestinal obstruction or free air. Pt has
had also noted with additional 15 lbs wt loss since November and now 79lbs.
Pt with some limited communication and admits to occcasional dysphagia, nausea,vomiting, but denies abdominal pain, diarrhea, constipation or rectal bleeding. No prior EGD or colonoscopy in past.
Past Medical History
Past Medical History: Hypercholesterolemia, Seizures, Psychiatric (anxiety) and Other (schizophrenia, developmental delay, bipolar, ambulatory dysfunction, scoliosis, hypotension on Midodrine)
Past Surgical History: Orthopedic (back surgery) and Other (teeth extraction)
Social History
Tobacco: Non-Smoker
Alcohol: None
Drug: None
Living: Detention
Employment: Disabled
Family History
Family History: Other (denies family hx GI issues )
Allergies / Home Medications
Allergy/AdvReac Type Severity Reaction Status Date / Time
pollen extracts Allergy Stuffy Verified 02/08/24 01:11
nose -
seasonal
lamotrigine [From Lamictal] AdvReac generalized Verified 02/08/24 01:11
weakness,
change in
mental
status
trazodone AdvReac generalized Verified 02/08/24 01:11
weakness,
change in
mental
status
�Medication �Instructions �Recorded
benztropine 0.5 mg tablet 0.5 mg PO TID Neurological 01/19/13
Condition
risperidone 1 mg tablet 1 mg PO DAILY Mental Health/Anxiety 10/17/22
fluoxetine 20 mg capsule 20 mg PO BID Depression 12/11/22
calcium carbonate 500 mg-vitamin 1 tab PO TID vitamin ##0 12/13/22
D3 5 mcg (200 unit) tablet (Oyster
Shell Calcium-Vitamin D3)
magnesium oxide 500 mg PO BID 30 days #60 tabs 12/25/22
midodrine 5 mg tablet 5 mg PO TID@0800,1300,1800 30 days 12/25/22
#90 tabs
acetaminophen 325 mg tablet 650 mg PO Q4H PRN mild 03/20/23
pain/temp>100
alprazolam 0.5 mg tablet 0.5 mg PO DAILY Mental 03/20/23
Health/Anxiety
aspirin 81 mg chewable tablet 81 mg PO DAILY #90 tabs 03/24/23
divalproex 250 mg tablet,delayed 250 mg PO DAILY Seizures 07/25/23
release
divalproex 250 mg tablet,delayed 500 mg PO HS Seizures 07/25/23
release
multivitamin 1 tab PO DAILY Supplement 07/25/23
bisacodyl 10 mg rectal suppository 10 mg KS DAILY PRN if mom 11/24/23
(Dulcolax (bisacodyl)) ineffective
magnesium hydroxide 400 mg/5 mL 30 ml PO DAILY PRN constipation 11/24/23
oral suspension (Milk of Magnesia)
sodium phosphates 19 gram-7 118 ml KS DAILY PRN if dulcolax 11/24/23
gram/118 mL enema (Fleet Enema) ineffective
potassium chloride 10 mEq 10 meq PO HS #30 tabs 12/01/23
tablet,extended release
Review of Systems
-
Unable to obtain full review of systems at this time due to: Other (limited verbal )
History Source: Patient
Constitutional: Reports Weight Loss and Fatigue
EENT: Reports No Symptoms
Respiratory: Reports Cough
Abdomen/GI: Reports Nausea, Vomiting and Other (dysphagia )
: Reports No Symptoms
Musculoskeletal: Reports Other
Skin: Reports No Symptoms
Neurological: Reports Weakness
Endocrine: Reports No Symptoms
Hematologic/Lymphatic: Reports No Symptoms
Vital Signs
Temp Pulse Resp BP Pulse Ox
98.1 F 80 26 101/59 98
02/09/24 03:54 02/09/24 06:30 02/09/24 06:30 02/09/24 06:30 02/09/24 06:30
Physical Exam
Exam
General: Other (thin appearing with temporal waisting )
HEENT: Normocephalic and Anicteric
Respiratory: Other (decreased )
Cardiac: Regular Rhythm
GI: Soft, Non Tender and Non Distended
Musculoskeletal: No Clubbing and No Cyanosis
Skin: Warm and Dry
Neuro: Awake, Alert and Other (soft voice answers most questions and nodes to questions )
Psych: Calm
Results
WBC 6.6 10^3/uL (4.8-10.8) 02/09/24 04:44
Hgb 7.8 g/dL (12.0-16.0) L 02/09/24 04:44
Hct 22.1 % (37.0-47.0) L 02/09/24 04:44
MCV 91.7 fL (81.0-99.0) 02/09/24 04:44
Plt Count 189 10^3/uL (130-400) D 02/09/24 04:44
Absolute Neuts (auto) 4.9 10^3/uL (1.4-6.5) 02/08/24 01:22
PT 17.3 Sec (11.4-14.6) H 02/08/24 10:48
INR 1.44 02/08/24 10:48
APTT 37.6 Sec (23.4-35.0) H 02/08/24 10:48
Sodium 137 mmol/L (135-145) D 02/09/24 04:44
Potassium 3.1 mmol/L (3.5-5.1) L 02/09/24 04:44
Chloride 107 mmol/L (98-107) 02/09/24 04:44
Carbon Dioxide 24 mmol/L (22-30) 02/09/24 04:44
BUN 5 mg/dl (7-17) L 02/09/24 04:44
Creatinine 0.4 mg/dL (0.6-1.0) L 02/09/24 04:44
Calcium 6.2 mg/dl (8.4-10.2) L* 02/09/24 04:44
Total Bilirubin 0.3 mg/dl (0.2-1.3) 02/09/24 04:44
AST 20 U/L (14-36) 02/09/24 04:44
ALT 14 U/L (0-35) 02/09/24 04:44
Alkaline Phosphatase 78 U/L (38-126) 02/09/24 04:44
Diagnostic Image Results:
02/07/14 CT Abd/pelvis W Iv Cont
Gross findings suggesting some diffuse colonic and some small bowel wall thickening which could represent enterocolitis. No intestinal obstruction or free air.
Prior GI Procedures:
EGD: none
Colonoscopy: none
Assessment / Plan
-
Pt is a 52 y/o woman with a hx of seizures, bipolar, developmental delay, ambulatory dysfunction, chronic hypotension [place] with admission in [place] with sepsis/PNA requiring pressors. During admission she had DHT placed. GI followed
during admission for possible peg. In discussion with patient and guardian patient had declined peg and also noted with significant thrombocytopenia and peg was held. She now returned with fever and hypotension with concern for recurrent sepsis
and aspiration. She is also noted with significant electrolyte imbalance and CT with noted some diffuse colonic and some small bowel wall thickening which could represent enterocolitis. No intestinal obstruction or free air. Pt has had also
noted with additional 15 lbs wt loss since November and now 79lbs.
-sepsis/fever- PNA vs urinary vs other
-aspiration pneumonitis
-wt loss
-CT with concern for enterocolitis
-chronic hypotension on midodrine with BP down to 50's after admission
-acute on chronic anemia
-dysphagia
-electrolyte imbalance on admission
-hypoalbuminemia
-severe protein malnutrition
-elevated random cortisol level
other medical problems:
-seizure disorder
-bipolar
-developmental delay
-ambulatory dysfunction
PLAN:
etiology of sepsis related to PNA vs other
CT with enterocolitis but denies abdominal pain and tolerating tube feeds without diarrhea
s/p speech eval 02/07 with some risk of aspiration consider pureed with risk vs DHT/NPO
reviewed with patient for peg she is considering options initially declined Peg but advised to think about it over next 2 days-- also reviewed with Arti ECKERT who is agreeable for peg as now with further wt loss since last admission
for peg patient will need medical optimization off pressors and electrolytes corrected
will follow for progress and ability to proceed
trend hbg with anemia some dilutional with fluid given on admission no signs of active GI bleeding
currently off PPI consider adding if any signs of bleeding
if Peg completed could proceed with EGD eval then consider OP colonoscopy for anemia and screening when patient improved from nutritional standpoint
-
-
Thank you for consultation and allowing me to participate in the patient's care. Please call the refrigeration service technician GI physician during the after hours with any questions or concerns.
[2024-02-09] MEDS: COGENTIN 0.5 MG PO (07:43)
[2024-02-09] MEDS: RISPERDAL 1 MG PO (07:43)
[2024-02-09] MEDS: DEPAKENE 250 MG TUBE ×3 (07:43→22:19)
[2024-02-09] MEDS: ProAmatine 5 MG PO (07:43)
--- NOTE | 2024-02-09 08:00 | PTCARENOTE ---
Received pt @ change of shift. Drowsy, awakens to verbal stimuli, ox1; reoriented to time/place; cognitive delay @ baseline. Voice quality soft/garbled speech; difficult to understand. SR on monitor. SpO2 95% on RA. +BS. R nare dobhoff in place w
TF's. Purewick draining clear/yellow urine. R DL PICC w IVF, levo gtt, albumin, and electrolyte repletion- see MAR/ flow sheet. Repositioned per protocol. Safe environment maintained.
[2024-02-09] MEDS: KCL 270 MEQ IV (08:33)
--- NOTE | 2024-02-09 08:43 | W.PN.INTV ---
Today's Communication / Plan
Recommendations
Continue levo, add vaso
Administer additional crystalloids with NS 0.9% x 1-2L in attempt to get her off pressors
Raise midodrine
Continue TF
GI consulted --> pt will need PEG. Defer to them for timing but she should ideally be off pressors and stabilized before procedure is done
Aspiration precautions
Replete electrolytes
Assessment
-
Assessment: 53-year-old F with PMHx of chronic hypotension on midodrine seizures, developmental delay, schizophrenia, bipolar disorder and history of UTI who p/w hypotension from her NH ([facility]) and fever to 103F. Patient is poor historian
and unable to obtain accurate HPI as she mumbles when speaks with incoherent speech. Patient was recently in November of this year for aspiration ammonia with septic shock. PEG tube was discussed at that time however this was not done. Patient had
thrombocytopenia as well during that time which precluded prompt placement at that time. In the ER she was febrile to 100.7 �F, pulse rate 92, breathing at 19 breaths/min, hypotensive to 92/60 and saturating 98% on room air. 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
Pt had a wet cough that was reported. Labs showed WBC 8.1, Hb 10.7, platelets 241, sodium 126, chloride 92, glucose 63, calcium 6.9 and albumin level 1.9. Cortisol was checked given concern for possible adrenal insufficiency and her level was 120.
UA showed moderate urine bacteria with 11�15 urine WBC and trace leukocyte esterase. Her COVID antigen is negative. CXR showed no acute cardiopulmonary process, and CT abdomen/pelvis showed diffuse colonic and small bowel wall thickening which
could represent enterocolitis with no intestinal obstruction or free air seen. Patient given calcium gluconate, D50, and 2L of IVF with NS 0.9%. Due to concern for aspiration and sepsis with hypotension, she was TRX to ICU for further care.
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
disorder, history of dysphagia
Impression:
#Shock - suspected sepsis due to enterocolitis vs aspiration vs UTI in setting of hypoalbuminemia
#Abnormal CT Abd/Pelvis with diffuse colonic and small bowel wall thickening suspicious for enterocolitis
#Anemia
#Hx of thrombocytopenia
#Hypoglycemia
#Hypochloremic, hyponatremia - likely due to reduced PO intake (this is further supported by pt's hypoglycemia in setting of normal random cortisol)
#Hypoalbuminemia likely due to malnutrition
#Abnormal urinalysis suspicious for UTI
#Developmental delay with Hx of dementia
#Chronic hypotension on midodrine as an outpatient
Plan:
- Continue Zosyn (started on 02/08/2024)- she will likely need 10-14 days of ABx
- Continue vasopressors with levophed and start vasopressin with goal MAP>65
- Follow up infectious workup with sputum Cx, urine Cx and blood Cx X2
- Her urine antigens for legionella and Strep PNA are both negative
- Maintain euglycemia with goal BG 140-180
- Continue tube feeds via DHT
- Raise midodrine to 10mg TID in attempt to wean off vasopressors
- Given that her serum Na is low and her urine Na is low, she likely needs additional IVF - give another 1L bolus of NS 0.9%
- OVEN DUMPER and will likely need PEG given concern for chronic aspiration; otherwise continue diet as per OVEN DUMPER; GI on board
- Resume home PO meds
- Administer supplemental albumin with goal serum albumin level >3g/dL
- Avoid narcotics or other sedating medications
- Replete K>4, Mg>2
- Aspiration precautions
- SW consult given [place] is from [place]
- stress ulcer ppx: N/A
- DVT ppx: Continue LMWH 30mg qPM
Critical care statement: A total of 37 minutes of critical care time was provided for this patient today. This includes management of unstable vital signs, evaluation of the patient at bedside, reviewing the patient's pertinent medical records
including radiographs, microbiology, laboratory evaluations, and discussion with primary team, consultants, pharmacy, nutrition, physical therapy, case management, charge nurse, critical care nursing, and respiratory therapy.
Data:
CT A/P with IV contrast 02-08-2024: MARKEDLY LIMITED STUDY DUE TO NUMEROUS FACTORS.
Gross findings suggesting some diffuse colonic and some small bowel wall thickening which could represent enterocolitis. No intestinal obstruction or free air.
CXR 02-08-2024: No acute cardiopulmonary process.
Subjective Dataa
Subjective Data
Date of Service:
Date of Service: February 09, 2024
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
Subjective:
Pt seen and evaluated this AM. On levophed at 6mcg/min. She is in no acute distress. She has frequent throat clearing and a cough but no significant expectoration appreciated. She is not in any pain and she is breathing comfortably on room air.
Review of Systems
General: Other (Unable to obtain due to the acuity of patient's clinical status)
Objective Data
Data Reviewed
Vital Signs / I&O / Oxygen:
Vital Signs
Temp Pulse Resp BP Pulse Ox
98.2 F 89 22 107/62 94
02/09/24 07:25 02/09/24 08:30 02/09/24 08:30 02/09/24 08:30 02/09/24 08:30
Intake and Output
02/08/24 02/09/24 02/10/24
06:59 06:59 06:59
Intake Total 4230.0 / 4857.5 810.0 / 810.0
Output Total 550 / 550 1400 / 1400
Balance -550 / 50 2830.0 / 3457.5 810.0 / 810.0
SaO2 94
Physical Exam
General: Comfortable and Sweats (negative)
HEENT: Normocephalic and Anicteric
Cardiovascular: S1-S2 and Peripheral Edema (negative)
Respiratory: Wheeze (negative), Crackles (Bibasilar), Rhonchi (negative) and Accessory Resp Muscle Use (negative)
GI: Soft, Non Distended, Non Tender and Normal Bowel Sounds
Neurology: Awake, Alert and Depressed
Skin: Warm, Dry and Bruising (negative)
Labs/Micro/Reports
Lab Data
02/09/24 04:44
Laboratory Results
02/08/24
10:48
PT 17.3 H
INR 1.44
APTT 37.6 H
Microbiology
02/08/24 02:46 Urine Urine Culture - Final
02/08/24 01:42 Blood/Venous Blood Culture - Preliminary
No Growth in 24 hours- Final report to follow
02/08/24 01:42 Blood/Venous Blood Culture - Preliminary
No Growth in 24 hours- Final report to follow
02/08/24 17:50 Urine Legionella Urinary Antigen - Final
Negative for Legionella pneumophila Serogroup 1 antigen.
A negative result does not rule out the possiblity of
Legionella infection due to other serogroups or species of
Legionella. Clinical correlation is recommended.
02/08/24 17:50 Urine Streptococcus pneumoniae Antigen (M - Final
Negative for Streptococcus pneumoniae antigen.
A negative result does not exclude infection with
Streptococcus pneumoniae. Clinical correlation is
recommended.
02/08/24 08:13 Nose Nasal Screen MRSA (PCR) - Final
MRSA not detected - performed by PCR methodology.
02/08/24 01:27 Nasal Swab Influenza Types A & B (LANA) - Final
Negative for Influenza A & B, NAAT
Negative results must be combined with clinical observations
and patient history.
Nucleic Acid Amplification test (NAAT)performed on the
[employer] platform.
--- NOTE | 2024-02-09 11:43 | CON.ID ---
Addendum entered and electronically signed by Corinne Arnold MD 02/09/24 12:32:
Guardian gives consent for HIV screening
Original Note:
Consultation
-
Date/Time Consultation Requested: 02/08/24 17:46
Date/Time Consultation Performed: 02/09/24 11:44
Requesting Provider: Dr Shanita Sanchez
Performing Provider: Dr Arnold
Reason for Consultation: shock
Chief Complaint / Past History
Chief Complaint
fever and hypotension
History of Present Illness
Ms Grnat is a 53 year old female with history of schizophrenia, developmental delay, seizure disorder, chronic hypotension, cachexia who presented here for fever and hypotension. History is limited due to the condition of the patient, history from
chart review. Deneis: cough, dyspnea, nausea, vomiting, diarrhea, pain. On my exam she does not respond to questions about headache, sinus tenderness, sore throat. She is having a nonproductive cough in spasms while I examine her. Denies
abdominal pain, dysuria. No rashes. RN reports no skin breakdown on posterior exam.
Of note with recent admission for aspiration pneumonia transitioned to a pureed diet. Admits she doesnt like the food.
Since arrival here her Tmax is 100.7 rectally, no claire fevers, bp in shock requiring norepi 6 mcg/min down from peak of 8 mcg/min, wbc 8.1, hgb 10.7, plt 241, no left shift initially bandemia noted today, cr 0.4, K 3.1, hypocalemia (uncorreted),
phos low, mag normal, t bili 0.3, ast 20, alkt 14, alk phos 78, ua contaminated with >30 squamous cells and 11-15 wbc/hpf, CXR: NG tube in proximal stomach, lung clear; my read clear lungs, CT a/p possible colitis; covid ag neg, legionella an strep
ags neg, mrsa screen neg, urine culture finalized - mixed yohan contaminated, blood cultures x2 in progress, on zosyn. ID is consulted for assistance with management.
Past History
Additional Past Medical History:
Hypercholesterolemia,
Seizures,
Developmental delay,
schizophrenia,
bipolar disorder
Chronic ambulatory dysfunction - wheelchair bound,
scoliosis,
chronic hypotension maintained on midodrine,
UTI,
elevated LFTs
hyperlipidemia,
indigestion,
hypotonia,
anxiety,
bipolar disorder
History of corrective surgery to both eyes,
back surgery for scoliosis,
some teeth removed,
corrective ear surgery at age 6
Dysphagia, unspecified type� �
Idiopathic hypotension
Generalized weakness� �
Additional Past Surgical History:
lumbar spinal hardwear noted on xray likely for scoliosis
Allergy History:
pollen extracts Allergy (Verified 02/08/24 01:11)
Stuffy nose - seasonal
lamotrigine [From Lamictal] Adverse Reaction (Verified 02/08/24 01:11)
generalized weakness, change in mental status
trazodone Adverse Reaction (Verified 02/08/24 01:11)
generalized weakness, change in mental status
Medications Reviewed: Yes
Social History
Alcohol: None
Drug: None
Personal: Single (has a boyfriend)
Living: Senior Living
Family History
Family History: Not Pertinent
Review of Systems
Review of Systems
General: Negative Fever or Chills
All systems: All other systems were reviewed and were negative
Vital Signs
Temp Pulse Resp BP Pulse Ox
97.8 F 89 22 107/62 94
02/09/24 11:02 02/09/24 08:30 02/09/24 08:30 02/09/24 08:30 02/09/24 08:30
Physical Exam
Physical Exam
Constitutional: No Acute Distress and Cachetic
Cardiovascular: Regular Rate and S1/S2; Negative Murmur or Rub
Pulmonary: Symmetric, Coarse and Other (frequently coughing); Negative Wheezes, Rales or Rhonchi
Gastrointestinal: Soft, Non Tender, Non Distended and Normal Bowel Sounds
Skin: Warm and Dry; Negative Rash or Jaundice
Lab / Diagnostic Study Results
02/09/24 04:44
Abs Immat Gran (auto) 0.1 10^3/uL (0-0.05) H 02/08/24 01:22
Absolute Neuts (auto) 4.9 10^3/uL (1.4-6.5) 02/08/24 01:22
Absolute Lymphs (auto) 2.7 10^3/uL (1.2-3.4) 02/08/24 01:22
Absolute Monos (auto) 0.4 10^3/uL (0.1-0.6) 02/08/24 01:22
Absolute Basos (auto) 0.1 10^3/uL (0-0.2) 02/08/24 01:22
Total Counted 100 02/09/24 04:44
Immature Gran % 0.9 % (0-0.5) H 02/08/24 01:22
Neutrophils % 60.6 % (42.2-75.2) 02/08/24 01:22
Lymphocytes % 32.7 % (20.5-51.1) 02/08/24 01:22
Monocytes % 4.7 % (1.7-9.3) 02/08/24 01:22
Eosinophils % 0.1 % (0-6) 02/08/24 01:22
Basophils % 1.0 % (0-2) 02/08/24 01:22
Abs Neuts (Manual) 3.7 10^3/uL (1.4-6.5) 02/09/24 04:44
Segmented Neutrophils 39 % (42-75) L 02/09/24 04:44
Band Neutrophils 18 % (0-3) H 02/09/24 04:44
Lymphocytes (Manual) 37 % (20-51) 02/09/24 04:44
PT 17.3 Sec (11.4-14.6) H 02/08/24 10:48
INR 1.44 02/08/24 10:48
Lactic Acid Cancelled 02/08/24 05:15
Ur Squamous Epith Cells >30 /LPF (Few) 02/08/24 02:46
Microbiology Results
Micro:
02/08/24 02:46 Urine Culture - Final
Urine
02/08/24 01:42 Blood Culture - Preliminary
Blood/Venous No Growth in 24 hours- Final report to follow
02/08/24 01:42 Blood Culture - Preliminary
Blood/Venous No Growth in 24 hours- Final report to follow
02/08/24 17:50 Legionella Urinary Antigen - Final
Urine Negative for Legionella pneumophila Serogroup 1 antigen.
A negative result does not rule out the possiblity of
Legionella infection due to other serogroups or species of
Legionella. Clinical correlation is recommended.
Streptococcus pneumoniae Antigen (M - Final
Negative for Streptococcus pneumoniae antigen.
A negative result does not exclude infection with
Streptococcus pneumoniae. Clinical correlation is
recommended.
02/08/24 08:13 Nasal Screen MRSA (PCR) - Final
Nose MRSA not detected - performed by PCR methodology.
02/08/24 01:27 Influenza Types A & B (LANA) - Final
Nasal Swab Negative for Influenza A & B, NAAT
Negative results must be combined with clinical observations
and patient history.
Nucleic Acid Amplification test (NAAT)performed on the
[employer] platform.
Assessment / Plan
Shock - likely septic
- bacterial translocation from the gut is frequently seen in severely malnourished individuals
- CXRs clear; repeat in the am post hydration
- covid ag neg, influenza neg
- CT could be consistent with enteritis
- UA was contaminated however no significant pyuria, no need to reculture in my opinion
- fine to continue zosyn for present
- follow clinically
Profound Cachexia
- 40 kg weight loss since 2012; 8-10 kg weight loss in the last year
- when able to take PO would get dietary consult
- may be at risk for refeeding syndrome - management per jigmaker
- close follow up outpatient for routine cancer screenings - discussed with guardian - she has not had colonoscopy, mammogram or pap smears
- t spot (low concern)
- hiv screen - has a boyfriend, previously sexually active - has not been screened
- this could be an indication for hospice if no reversible cause found; chronic aspiration also an indication for hospice - discussed with guardian for now would plan trial of improving nutrition
- A palliative approach might also be considered - liberalizing the diet and accepting that if she gets into a cycle of recurrent aspiration pneumonia that would be the time to transition to hospice
prognosis guarded
[2024-02-09] MEDS: NEUTRA-PHOS POWDER PACKET 500 MG TUBE (12:13)
[2024-02-09] MEDS: KCL ELIXIR 40 MEQ TUBE (12:13)
[2024-02-09] MEDS: LEVOPHED 250 IV (12:13)
[2024-02-09] MEDS: PITRESSIN 100 IV (12:14)
--- NOTE | 2024-02-09 12:30 | PTCARENOTE ---
Vaso gtt added in attempt to taper levo gtt to keep MAP >65-see flow sheet. R nare dobhoff w TF @ goal rate, tolerating feeding. Reassessed, no changes in prev assessment. Repositioned per protocol and safe environment maintained.
--- NOTE | 2024-02-09 12:34 | CM ---
CM following re: discharge planning.
Discussed in rounds, reviewed pt's chart, met with pt.
Pt is a 53 year old female, admitted with primary dx of Septic shock.
Pt is a terminal carman care resident (LTC) at [facility] and is on an MT bed hold, She requires assist of 1 for transfers and is able to feed herself. The patient was placed there last year after her mother, who was her caregiver, passed
away. Pt has a brother who has little involvement in pt's care.
PCP: Sean Nieto
Pharmacy: [facility]
D/C plan: return back to [facility] for a terminal carman care
CM will follow with discharge plan updates as hospitalization progresses
[2024-02-09] MEDS: LOW STRENGTH ASPIRIN 81 MG PO (14:05)
[2024-02-09] MEDS: PROZAC 20 MG TUBE ×2 (14:06→20:00)
[2024-02-09] MEDS: ProAmatine 10 MG TUBE ×2 (14:06→17:48)
[2024-02-09] MEDS: COGENTIN 0.5 MG TUBE ×2 (15:40→22:20)
[2024-02-09 16:19] LABS: Blood Urea Nitrogen 5 mg/dl (7-17); Calcium 7.5 mg/dl (8.4-10.2); Carbon Dioxide 21 mmol/L (22-30); Chloride 104 mmol/L (98-107); Estimated Creatinine Clearance 62 ml/min; Glucose 177 mg/dl (70-99); Potassium 5.2 mmol/L (3.5-5.1); Sodium 133 mmol/L (135-145); eGFR > 60.00
--- NOTE | 2024-02-09 16:19 | W.PN.HOSP.TC ---
Addendum entered and electronically signed by Issa Kelley MD 02/10/24 00:03:
Attending Addendum-
I saw and evaluated the patient. I reviewed the resident�s note and agree with findings and plan as documented in the resident�s note.patient with very soft voice, barely audible or comprehensible, wants to go to bathroom. Full 12 point ROS reviewed
and negative except as documented Exam: Gen frail cachectic appearing HEENT- dobhoff in place heart RRR lungs clear abd soft NT LE no edema PICC in place RUE- Plan:
# Hypovolemic Shock- cont levophed, vasopressin not started as ordered will start now, appreciate icu input, maintain MAP > 65, completed albumin cont IVF, appreciate ID input- cont zosyn for now, await cx results, monitor closely in ICU
# Acute Anemia- likely dilutional and secondary to nutritional deficiency- cont to monitor hold transfusion until <7.
# Severe Electrolyte Imbalance- hypo- K, Ca, and PO4 - replete- cont to monitor repeat labs in am
# Hypovolemic Hyponatremia- cont IVF repeat BMP in am
# Dysphagia and Severe PCM- dobhoff cont feeds, watch for refeeding syndrome, appreciate GI input-for PEG placement when hemodynamically stable- will not prevent aspiration- poor overall prog
# Seizure D/O- cont meds
# Psych- Bipolar Schizoaffective- cont meds t/c c/s psych for eval /medication review
Time spent coordinating care, review of plan of care with resident, review of records, med rec, consults, notes, labs, rads, d/w nursing, ICU� 59 mins
Original Note:
Today's Communication/Plan
-
see a/p
Assessment / Plan
Assessment / Plan
A/P:� Patient is a 53y F with PMH significant for schizophrenia, cognitive impairment, chronic malnutrition and seizure disorder who presents to ED for evaluatio nof fever and hypotension.
# Sepsis secondary to enterocolitis versus aspiration pneumonitis versus UTI
# Chronic dysphagia
Chest x-ray in ED shows no acute pulmonary process.
Repeat chest x-ray shows no significant focal parenchymal opacification
ID input appreciated. continue Zosyn
Continue vasopressors with levophed and�started on vasopressin�today with goal MAP>65
Steroids discontinued, albumin discontinued
Blood culture pending,
Negative sputum culture
UA contaminated, no significant pyuria
aspiration precautions
GI input appreciated. Patient considering PEG tube placement
Anemia
-Hemoglobin today 7.8
-Transfusion if hemoglobin drops below 7
-Trend hemoglobin, monitor CBC
#Hyponatremia
Na - 137 improved on IV fluids
Monitor BMP
#Hypokalemia
#Hypomagnesemia
#Hypocalcemia
-Replete
�
Dysphagia
#Seizure Disorder
�- No evidence of recent / active seizures.
�- Continue AEDs without changes / interruption.
�- Check Depakote levels.
�- Monitor for any breakthrough seizure activity.
#Schizophrenia
Bipolar Disorder
Cognitive Impairment
�- Stable.� Continue risperidone and benztropine.
�- Hold SSRI acutely given hyponatremia.
�-Watch for adverse effects on psych meds
DVT Prophylaxis:�LMWH
Code Status:� Full
Anticipated Discharge: > 48 hours
Subjective/Interval History
-
No acute overnight events
Objective Data
-
Labs:
Laboratory Results
02/09/24 02/09/24 02/09/24
04:44 12:00 15:38
WBC 6.6
Hgb 7.8 L
Hct 22.1 L
Plt Count 189 D
Sodium 137 D Cancelled Pending
Potassium 3.1 L Cancelled Pending
Chloride 107 Cancelled Pending
Carbon Dioxide 24 Cancelled Pending
BUN 5 L Cancelled Pending
Creatinine 0.4 L Cancelled Pending
Glucose 136 H Cancelled Pending
Calcium 6.2 L* Cancelled Pending
Total Bilirubin 0.3
AST 20
ALT 14
Alkaline Phosphatase 78
Vital Signs:
Vital Signs
Temp Pulse Resp BP Pulse Ox
97.5 F 85 26 105/55 94
02/09/24 15:02 02/09/24 14:00 02/09/24 14:00 02/09/24 14:00 02/09/24 14:00
I&O
02/08/24 02/09/24 02/10/24
06:59 06:59 06:59
Intake Total 4230.0 / 4857.5 1581.0 / 1581.0
Output Total 550 / 550 1400 / 1400 550 / 550
Balance -550 / 50 2830.0 / 3457.5 1031.0 / 1031.0
Review of Systems
-
All other systems: Reviewed and negative (Except as documented)
Physical Exam
-
General: Other (Frail-appearing)
HEENT: Normocephalic and Other (Dobhoff in place)
Respiratory: Negative Wheezes, Rales or Rhonchi
Cardiac: Regular Rhythm and S1/S2
GI: Soft, Nontender, Nondistended and Normal Bowel Sounds
Musculoskeletal: No Clubbing and No Cyanosis
Skin: Warm
Psych: Calm
Data Reviewed
-
Labs: Labs Reviewed by me and Discussed with Physician
[2024-02-09] MEDS: NSS 500 IV (17:47)
[2024-02-09] MEDS: LOVENOX 30 MG SC (17:48)
--- NOTE | 2024-02-09 18:43 | PTCARENOTE ---
pt w mx loose/liq BMs s/p reaching TF goal. Complete hygiene provided and rectal trumpet inserted. Repositioned per protocol. Levo and vaso gtts remains infusing-see flow sheet. Safe environment maintained.
--- NOTE | 2024-02-09 20:00 | PTCARENOTE ---
Rec'd pt from previous shift resting comfortably no s/s distress. Pt smiles and follows simple commands, minimal verbal interaction, but alert. Afebrile. NSR on monitor. Vaso on in attempt to wean Levo. MAP goal 65. PICC line flushed/patent. Pulses
weak/palpable. 2L nasal cannula sat 96%, nonproductive cough. Tube feeds at goal. BMX2, incontinent. Brief for urinary incontinence.Will monitor.
--- NOTE | 2024-02-09 22:00 | W.PN.UPDATE ---
Update Note
Progress Note Update
02/09/24
2199- Patient pulled out Dobbhoff tube. Replaced Dobbhoff, auscultation heard over the stomach, chest xray obtained for confirmation it was in the stomach, stilette pulled out. Patient tolerated procedure well.
[2024-02-10] VITALS (46 sets, daily range): BP systolic 62–129; BP diastolic 36–77
[2024-02-10] MEDS: ZOSYN 50 IV ×2 (01:43→07:56)
[2024-02-10 05:33] LABS: Hematocrit 21.8 % (37.0-47.0); Hemoglobin 7.6 g/dL (12.0-16.0); Mean Corp Hgb Conc. 34.9 g/dL (33.0-37.0); Mean Corpuscular Hgb 32.1 pg (27.0-31.0); Mean Platelet Volume 10.5 fL (7.4-10.4); Platelet Count 187 10^3/uL (130-400); Red Blood Cell Count 2.37 10^6/uL (4.20-5.40); Red Cell Dist. Width 16.3 % (11.5-14.5); White Blood Cell Count 8.9 10^3/uL (4.8-10.8)
[2024-02-10 05:59] LABS: Blood Urea Nitrogen 6 mg/dl (7-17); Calcium 6.6 mg/dl (8.4-10.2); Carbon Dioxide 24 mmol/L (22-30); Chloride 100 mmol/L (98-107); Estimated Creatinine Clearance 62 ml/min; Glucose 142 mg/dl (70-99); Sodium 131 mmol/L (135-145); eGFR > 60.00
[2024-02-10] MEDS: PROZAC 20 MG TUBE ×2 (07:55→21:12)
[2024-02-10] MEDS: DEPAKENE 250 MG TUBE ×3 (07:55→21:12)
[2024-02-10] MEDS: RISPERDAL 1 MG TUBE (07:55)
[2024-02-10] MEDS: THERAGRAN 1 TABLET TUBE (07:55)
[2024-02-10] MEDS: COGENTIN 0.5 MG TUBE ×3 (07:55→21:12)
[2024-02-10] MEDS: LOW STRENGTH ASPIRIN 81 MG PO (07:55)
[2024-02-10] MEDS: ProAmatine 10 MG TUBE ×3 (07:56→18:08)
[2024-02-10] MEDS: PITRESSIN 100 IV (07:56)
[2024-02-10] MEDS: ROBITUSSIN 200 MG TUBE (08:00)
--- NOTE | 2024-02-10 08:29 | W.PN.INTV ---
Today's Communication / Plan
Recommendations
Continue levo
Start PPI and monitor Hb with transfusion if needed to keep Hb>7 and plt>50k
Diurese as toelrated given fluid overload seen on CXR today
Continue midodrine
Continue TF at tricke rate given suspected refeeding syndrome today; replete electrolytes
GI consulted --> pt will need PEG. Will get EGD and hopefully flex-sig all at once
Aspiration precautions and change to sport bed
Abx as per ID
Assessment
-
Assessment: 53-year-old F with PMHx of chronic hypotension on midodrine seizures, developmental delay, schizophrenia, bipolar disorder and history of UTI who p/w hypotension from her NH ([facility]) and fever to 103F. Patient is poor historian
and unable to obtain accurate HPI as she mumbles when speaks with incoherent speech. Patient was recently in November of this year for aspiration ammonia with septic shock. PEG tube was discussed at that time however this was not done. Patient had
thrombocytopenia as well during that time which precluded prompt placement at that time. In the ER she was febrile to 100.7 �F, pulse rate 92, breathing at 19 breaths/min, hypotensive to 92/60 and saturating 98% on room air. 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
Pt had a wet cough that was reported. Labs showed WBC 8.1, Hb 10.7, platelets 241, sodium 126, chloride 92, glucose 63, calcium 6.9 and albumin level 1.9. Cortisol was checked given concern for possible adrenal insufficiency and her level was 120.
UA showed moderate urine bacteria with 11�15 urine WBC and trace leukocyte esterase. Her COVID antigen is negative. CXR showed no acute cardiopulmonary process, and CT abdomen/pelvis showed diffuse colonic and small bowel wall thickening which
could represent enterocolitis with no intestinal obstruction or free air seen. Patient given calcium gluconate, D50, and 2L of IVF with NS 0.9%. Due to concern for aspiration and sepsis with hypotension, she was TRX to ICU for further care.
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
disorder, history of dysphagia
Impression:
#Shock - suspected sepsis due to enterocolitis vs aspiration vs UTI in setting of hypoalbuminemia
#Abnormal CT Abd/Pelvis with diffuse colonic and small bowel wall thickening suspicious for enterocolitis
#Acute respiratory failure with hypoxemia on supplemental oxygen
#Acute on chronic anemia due to blood loss now with 'pink' stool concerning for GI bleed - DDx includes brisk UGIB vs LGIB (baseline Hb: 10-12g/dL)
#Hx of thrombocytopenia
#Hypoglycemia
#Hypochloremic, hyponatremia - likely due to reduced PO intake (this is further supported by pt's hypoglycemia in setting of normal random cortisol)
#Hypomagnesemia and hypophosphatemia likely due to refeeding syndrome
#Hypoalbuminemia likely due to malnutrition
#Abnormal urinalysis suspicious for UTI
#Developmental delay with Hx of dementia
#Chronic hypotension on midodrine as an outpatient
Plan:
- Continue Abx --> Now on Unasyn after being on Zosyn since 02/08/2024 - she will likely need 10-14 days of ABx
- ID on board --> recs appreciated
- Continue vasopressors with levophed with goal MAP>65
- Follow up infectious workup with sputum Cx, urine Cx and blood Cx X2
- Her urine antigens for legionella and Strep PNA are both negative
- Maintain euglycemia with goal BG 140-180
- Hold tube feeds in setting of possible refeeding syndrome --> replete electrolytes with K>4, Mg>2 and PO4>3 and once repleted then we can resume at trickle rate
- Continue midodrine 10mg TID in attempt to wean off vasopressors
- Given that her serum Na is low and her urine Na is low, I administered an additional 1L bolus of NS 0.9% on 02/08 --> unfortunately today she appears more hypoxic and CXR looks like volume overload --> no additional IVF at this time and I will give
lasix 40mg IVP x1
- [employer] WEIGHMASTER and will need PEG given concern for chronic aspiration; otherwise continue diet as per [employer] WEIGH[employer]; GI on board --> given her hematochezia with acute on chronic anemia, she will need endoscopy. Please for EGD during PEG and if persistent bloody stool
then will get flex-sig during EGD
- Serial Hb and transfuse if needed to keep Hb>7, plt>50k
- Start PPI 40mg IV q12hr
- Resume home PO meds
- Administer supplemental albumin with goal serum albumin level >3g/dL
- Avoid narcotics or other sedating medications
- Replete K>4, Mg>2
- Aspiration precautions
- SW consult given pt is from [place]
- stress ulcer ppx: start PPI IV BID
- DVT ppx: SCDs; stop chemical ppx for now given acute gi bleed
Critical care statement: A total of 38 minutes of critical care time was provided for this patient today. This includes management of unstable vital signs, evaluation of the patient at bedside, reviewing the patient's pertinent medical records
including radiographs, microbiology, laboratory evaluations, and discussion with primary team, consultants, pharmacy, nutrition, physical therapy, case management, charge nurse, critical care nursing, and respiratory therapy.
Data:
CT A/P with IV contrast 02-08-2024: MARKEDLY LIMITED STUDY DUE TO NUMEROUS FACTORS.
Gross findings suggesting some diffuse colonic and some small bowel wall thickening which could represent enterocolitis. No intestinal obstruction or free air.
CXR 02-08-2024: No acute cardiopulmonary process.
CXR 02-10-2024:
Somewhat limited study with patient rotated to the right.
Slightly prominent pulmonary interstitial markings bilaterally. Findings could represent interstitial pneumonitis or edema.
No pneumothorax.
Likely small right pleural effusion.
Subjective Dataa
Subjective Data
Date of Service:
Date of Service: February 10, 2024
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
Subjective:
Pt seen this AM. Still on levophed at 4mcg/min and vaso at 0.03 units/min. No nausea or vomiting seen overnight. She continues to have a weak cough. She had diarrhea overnight, soft stool this AM. BP 151/102, HR 101. She is on 4L/min this AM
after requiring 2 L/min to mid-80s.
Review of Systems
General: Other (Negative unless mentioned above)
Objective Data
Data Reviewed
Vital Signs / I&O / Oxygen:
Vital Signs
Temp Pulse Resp BP Pulse Ox
98.9 F 95 38 91/59 87
02/10/24 07:48 02/10/24 06:39 02/10/24 06:39 02/10/24 06:39 02/10/24 06:39
Intake and Output
02/09/24 02/10/24 02/11/24
06:59 06:59 06:59
Intake Total 4230.0 / 4857.5 3383.5 / 3383.5
Output Total 1400 / 1400 550 / 550
Balance 2830.0 / 3457.5 2833.5 / 2833.5
SaO2 87
Physical Exam
General: Comfortable and Sweats (negative)
HEENT: Normocephalic and Anicteric
Cardiovascular: S1-S2 and Peripheral Edema (negative)
Respiratory: Wheeze (negative), Crackles (Bibasilar), Rhonchi (anterior left hemithorax) and Accessory Resp Muscle Use (negative)
GI: Soft, Non Distended, Non Tender and Normal Bowel Sounds
Neurology: Awake, Alert and Depressed
Skin: Warm, Dry and Bruising (negative)
Labs/Micro/Reports
Lab Data
02/10/24 05:12
02/10/24 05:12
Microbiology
02/08/24 01:42 Blood/Venous Blood Culture - Preliminary
No Growth in 48 hours- Final report to follow
02/08/24 01:42 Blood/Venous Blood Culture - Preliminary
No Growth in 48 hours- Final report to follow
02/08/24 02:46 Urine Urine Culture - Final
02/08/24 17:50 Urine Legionella Urinary Antigen - Final
Negative for Legionella pneumophila Serogroup 1 antigen.
A negative result does not rule out the possiblity of
Legionella infection due to other serogroups or species of
Legionella. Clinical correlation is recommended.
02/08/24 17:50 Urine Streptococcus pneumoniae Antigen (M - Final
Negative for Streptococcus pneumoniae antigen.
A negative result does not exclude infection with
Streptococcus pneumoniae. Clinical correlation is
recommended.
02/08/24 08:13 Nose Nasal Screen MRSA (PCR) - Final
MRSA not detected - performed by PCR methodology.
02/08/24 01:27 Nasal Swab Influenza Types A & B (LANA) - Final
Negative for Influenza A & B, NAAT
Negative results must be combined with clinical observations
and patient history.
Nucleic Acid Amplification test (NAAT)performed on the
[employer] platform.
--- NOTE | 2024-02-10 09:31 | PTOTSP ---
SHAREPOINT CONSULTANT Note
Given patient's chronic risk for dysphagia/aspiration, L4 Puree, L0 Thin liquid diet would be for comfort/pleasure understanding aspiration risks. This decision would need to be made by POA. As there are concerns patient is currently not
managing/clearing secretions and has made no indications of interest in eating/drinking - comfort feeding is NOT appropriate at this time.
Patient's ability to participate in structured therapy is limited by her acute on chronic cognitive changes. Rehabilitation is not appropriate at this time. Will sign off. Please reconsult if patient/POA goals of care change.
--- NOTE | 2024-02-10 09:47 | PTCARENOTE ---
Rec'd pt from previous shift resting comfortably no s/s distress. Pt smiles and follows simple commands, minimal verbal interaction, but alert. Afebrile. NSR on monitor. Vaso on in attempt to wean Levo. MAP goal 65. Attempted to wean Levo
unsuccessfully. PICC line flushed/patent. Pulses weak/palpable. 4L nasal cannula sat 94%, nonproductive cough. Tube feeds at goal. Brief for urinary/stool incontinence.Will monitor.
[2024-02-10 10:09] LABS: Magnesium 1.3 mg/dl (1.6-2.3); Phosphorus 1.8 mg/dl (2.5-4.5)
--- NOTE | 2024-02-10 10:20 | W.PN.ID1 ---
Date of Service
Date of Service: February 10, 2024
Today's Communication
Narrow to Unasyn.
Assessment / Plan
Hypotension
Fever
- bacterial translocation from the gut is frequently seen in severely malnourished individuals
- CXRs clear; repeat in the am post hydration
- covid ag neg, influenza neg
- CT could be consistent with enteritis
- UA was contaminated however no significant pyuria, no need to reculture.
- Cultures negative thus far; will narrow antibiotic coverage to Unasyn.
- follow clinically
Profound Cachexia
- 40 kg weight loss since 2012; 8-10 kg weight loss in the last year
- when able to take PO would get dietary consult
- may be at risk for refeeding syndrome - management per telecommunications network engineer
- close follow up outpatient for routine cancer screenings - discussed with guardian - she has not had colonoscopy, mammogram or pap smears
- t spot pending (low concern for active TB)
- HIV screen pending - has a boyfriend, previously sexually active - has not been screened
- Overall picture could be an indication for hospice if no reversible cause found; chronic aspiration also an indication for hospice - discussed with guardian for now would plan trial of improving nutrition
- A palliative approach might also be considered - liberalizing the diet and accepting that if she gets into a cycle of recurrent aspiration pneumonia that would be the time to transition to hospice
Overall prognosis guarded
����������������������������������������������������������
Chief Complaint
-: Pneumonia
Subjective / Review of Systems
Patient seen and examined. Nursing reports some diarrhea over night. Patient is on tube feeds. Denies abdominal discomfort. Feels 'generally unwell'.
Vital Signs / Physical Exam
Vital Signs
Vital Signs
Temp Pulse Resp BP Pulse Ox
98.9 F 75 31 102/54 94
02/10/24 07:48 02/10/24 09:30 02/10/24 09:30 02/10/24 09:30 02/10/24 09:42
Physical Exam
Constitutional: Chronically Ill, Non-toxic and Cachetic
Eyes: No Conjunctival Hemorrhage and Sclera Anicteric
Cardiovascular: S1/S2 and S3/S4
Pulmonary: Non Labored
Gastrointestinal: Soft and Non Distended
Extremities: Edema; Negative Erythema or Splinter Hemorrhage
Neurological: Awake
Psychological: Calm
Objective Data
Lab Data
Lab Results
02/10/24 05:12
02/10/24 05:12
PT 17.3 Sec (11.4-14.6) H 02/08/24 10:48
INR 1.44 02/08/24 10:48
APTT 37.6 Sec (23.4-35.0) H 02/08/24 10:48
Estimated Creat Clear 62 ml/min 02/10/24 05:12
Lactic Acid Cancelled 02/08/24 05:15
Total Bilirubin 0.3 mg/dl (0.2-1.3) 02/09/24 04:44
AST 20 U/L (14-36) 02/09/24 04:44
ALT 14 U/L (0-35) 02/09/24 04:44
Alkaline Phosphatase 78 U/L (38-126) 02/09/24 04:44
Most recent labs reviewed.
Micro Results:
02/08/24 01:42 Blood Culture - Preliminary
Blood/Venous No Growth in 48 hours- Final report to follow
02/08/24 01:42 Blood Culture - Preliminary
Blood/Venous No Growth in 48 hours- Final report to follow
02/08/24 02:46 Urine Culture - Final
Urine
02/08/24 17:50 Legionella Urinary Antigen - Final
Urine Negative for Legionella pneumophila Serogroup 1 antigen.
A negative result does not rule out the possiblity of
Legionella infection due to other serogroups or species of
Legionella. Clinical correlation is recommended.
Streptococcus pneumoniae Antigen (M - Final
Negative for Streptococcus pneumoniae antigen.
A negative result does not exclude infection with
Streptococcus pneumoniae. Clinical correlation is
recommended.
02/08/24 08:13 Nasal Screen MRSA (PCR) - Final
Nose MRSA not detected - performed by PCR methodology.
02/08/24 01:27 Influenza Types A & B (LANA) - Final
Nasal Swab Negative for Influenza A & B, NAAT
Negative results must be combined with clinical observations
and patient history.
Nucleic Acid Amplification test (NAAT)performed on the
[employer] platform.
[2024-02-10 10:29] LABS: Albumin 2.1 g/dl (3.5-5.0)
--- NOTE | 2024-02-10 10:29 | W.PN.GI.CBS2 ---
Addendum entered and electronically signed by Diogo Franco MD 02/10/24 21:57:
I saw and examined the patient.
The PA's note was reviewed and I agree with the note.
Comment:
Clinically suboptimal for PEG placement, reassess for possible Wednesday next week.
Addendum entered and electronically signed by MARY Castaneda 02/10/24 10:42:
sent message to fermentation operator to eval for refeeding with K, mag, phos and calcium abnormality
Original Note:
Today's Communication / Plan
-
cont abx per ID
spoke with patient and nursing staff again today about peg. Pt agreeable. I reviewed with Arti 02/08 who is also in agreement and willing to give consent
cont DHT feeds monitor for refeeding-- K low then high, calcium, phos and mag also low reviewed with nursing for repletion
continue medical optimization prior to peg possible Wednesday with resp status, off pressors and electrolytes repleted
trend hbg transfuse as needed with anemia some dilutional with fluid given on admission no signs of active GI bleeding stools brown will need EGD with peg for anemia then OP colon when improved
currently off PPI consider adding if any signs of bleeding
Assessment / Plan
-
Pt is a 52 y/o woman with a hx of seizures, bipolar, developmental delay, ambulatory dysfunction, chronic hypotension admitted from [place] with admission in November with sepsis/PNA requiring pressors. During admission she had DHT placed. GI followed
during admission for possible peg. In discussion with patient and guardian patient had declined peg and also noted with significant thrombocytopenia and peg was held. She now returned with fever and hypotension with concern for recurrent sepsis
and aspiration. She is also noted with significant electrolyte imbalance and CT with noted some diffuse colonic and some small bowel wall thickening which could represent enterocolitis. No intestinal obstruction or free air. Pt has had also
noted with additional 15 lbs wt loss since November and now 79lbs.
-sepsis/fever- PNA vs urinary vs GI with enteritis per ID
-aspiration pneumonitis
-wt loss
-CT with concern for enterocolitis
-chronic hypotension on midodrine with BP down to 50's after admission
-acute on chronic anemia
-dysphagia
-electrolyte imbalance on admission
-hypoalbuminemia
-severe protein malnutrition
-elevated random cortisol level
other medical problems:
-seizure disorder
-bipolar
-developmental delay
-ambulatory dysfunction
PLAN:
cont abx per ID
spoke with patient and nursing staff again today about peg. Pt agreeable. I reviewed with Arti 02/08 who is also in agreement and willing to give consent
cont DHT feeds monitor for refeeding-- K low then high, calcium, phos and mag also low reviewed with nursing for repletion
continue medical optimization prior to peg possible Wednesday with resp status, off pressors and electrolytes repleted
trend hbg transfuse as needed with anemia some dilutional with fluid given on admission no signs of active GI bleeding stools brown will need EGD with peg for anemia then OP colon when improved
currently off PPI consider adding if any signs of bleeding
Subjective
Subjective
Date of Service: February 10, 2024
still remains on low dose pressors and now back on O2 tolerating tube feeds
Objective
Data Reviewed
Laboratory Data:
Laboratory Results
02/10/24 05:12
02/10/24 05:12
Laboratory Results
PT 17.3 Sec (11.4-14.6) H 02/08/24 10:48
INR 1.44 02/08/24 10:48
APTT 37.6 Sec (23.4-35.0) H 02/08/24 10:48
Phosphorus 1.8 mg/dl (2.5-4.5) L 02/10/24 05:12
Magnesium 1.3 mg/dl (1.6-2.3) L 02/10/24 05:12
Total Bilirubin 0.3 mg/dl (0.2-1.3) 02/09/24 04:44
AST 20 U/L (14-36) 02/09/24 04:44
ALT 14 U/L (0-35) 02/09/24 04:44
Alkaline Phosphatase 78 U/L (38-126) 02/09/24 04:44
Vital Signs and I&O:
Vital Signs
Temp Pulse Resp BP Pulse Ox
98.9 F 75 31 102/54 94
02/10/24 07:48 02/10/24 09:30 02/10/24 09:30 02/10/24 09:30 02/10/24 09:42
I&O
02/09/24 02/10/24 02/11/24
06:59 06:59 06:59
Intake Total 4230.0 / 4857.5 3383.5 / 3407.5
Output Total 1400 / 1400 550 / 550
Balance 2830.0 / 3457.5 2833.5 / 2857.5
Physical Exam
Physical Exam
HEENT: Anicteric
Cardiology: Normal Sinus Rhythm
Pulmonary: Rhonchi
GI: Soft, Non Distended and Non Tender
Extremities: No Edema
Neuro: Other (soft voice but nods to questions)
[2024-02-10] MEDS: THIAMINE INJECTION 100 MG IV (11:27)
--- NOTE | 2024-02-10 13:00 | PTCARENOTE ---
TF stopped due to suspected refeeding syndrome. Dobhoff clotted, removed and replaced. Position verified by x-ray. Electrolytes replaced as ordered. Liquid stool-brown with pink tint. Heme positive. Service Order Clerk and GI notified. Protonix started.
[2024-02-10] MEDS: MAGNESIUM SULFATE 50 IV (13:10)
[2024-02-10] MEDS: FLEXBUMIN 100 IV ×2 (13:11→18:08)
[2024-02-10] MEDS: SODIUM PHOSPHATE 255 MEQ IV (13:51)
[2024-02-10] MEDS: UNASYN IV ×2 (13:52→21:14)
[2024-02-10] MEDS: CALCIUM GLUCONATE 100 IV (13:54)
--- NOTE | 2024-02-10 14:02 | W.PN.HOSP.TC ---
Addendum entered and electronically signed by Issa Kelley MD 02/10/24 22:49:
Attending Addendum-
I saw and evaluated the patient. I reviewed the resident�s note and agree with findings and plan as documented in the resident�s note. patient barely audible or comprehensible. Appears comfortable. Full 12 point ROS reviewed and negative except as
documented Exam: Gen frail cachectic appearing HEENT- dobhoff in place heart RRR lungs crackles at bases b/l abd soft NT LE no edema PICC in place RUE- Plan:
# Hypovolemic Shock- cont levophed, vasopressin dced, increase midodrine, appreciate icu input, maintain MAP > 65, await cx results, monitor closely in ICU
# Acute Aspiration Event- cont unasyn per ID, cont to monitor d/w speech cont NPO and dobhoff feeding for now
# Acute Anemia- likely dilutional and secondary to nutritional deficiency- cont to monitor hold transfusion until <7.
# Severe Electrolyte Imbalance- likely refeeding syndrome- hypo- K, Ca, Mg and PO4 - replete- cont to monitor closely repeat labs BID, may slow rate of DH feeds
# Hypovolemic Hyponatremia- cont IVF repeat BMP in am
# Dysphagia and Severe PCM- cont feeds, appreciate GI input-for PEG placement when hemodynamically stable- will not prevent aspiration- poor overall prog
# Seizure D/O- cont meds
# Psych- Bipolar Schizoaffective- cont meds t/c c/s psych for eval /medication review
Time spent coordinating care, review of plan of care with resident, review of records, med rec, consults, notes, labs, rads, d/w nursing, ICU� 60 mins
Original Note:
Today's Communication/Plan
-
see a/p
Replete electrolyte abnormalities
Switch antibiotics to Unasyn
Continue Levophed
Repeat BMP
Assessment / Plan
Assessment / Plan
A/P:� Patient is a 53y F with PMH significant for schizophrenia, cognitive impairment, chronic malnutrition and seizure disorder who presents to ED for evaluatio nof fever and hypotension.
# Sepsis secondary to enterocolitis versus aspiration pneumonitis versus UTI
# Chronic dysphagia
Chest x-ray in ED shows no acute pulmonary process.
Repeat chest x-ray shows no significant focal parenchymal opacification
ID input appreciated. Consider palliative/hospice, narrow antibiotics to Unasyn
Continue vasopressors with levophed and�started on vasopressin�yesterday with goal MAP>65]
Midodrine increased to 10 mg TID
Steroids discontinued, albumin discontinued
UA contaminated, no significant pyuria
Cultures negative thus far.
aspiration precautions
GI input appreciated. Patient agreeable to PEG tube placement.
Anemia
-Hemoglobin today 7.6
-Transfusion if hemoglobin drops below 7
-Trend hemoglobin, monitor CBC
#Hyponatremia
Na - 131
Replete
Monitor BMP
#Hypokalemia
#Hypomagnesemia
#Hypocalcemia
-Replete
�
#Seizure Disorder
�- No evidence of recent / active seizures.
�- Continue AEDs without changes / interruption.
�- Check Depakote levels.
�- Monitor for any breakthrough seizure activity.
#Schizophrenia
Bipolar Disorder
Cognitive Impairment
�- Stable.� Continue risperidone and benztropine.
�- Hold SSRI acutely given hyponatremia.
�-Watch for adverse effects on psych meds
DVT Prophylaxis:�LMWH
Code Status:� Full
Anticipated Discharge: > 48 hours
Subjective/Interval History
-
Date of Service: February 10, 2024
Objective Data
-
Labs:
Laboratory Results
02/10/24 02/10/24 02/10/24
05:12 14:00 16:30
WBC 8.9
Hgb 7.6 L
Hct 21.8 L
Plt Count 187
Sodium 131 L Cancelled Pending
Potassium 4.0 Cancelled Pending
Chloride 100 Cancelled Pending
Carbon Dioxide 24 Cancelled Pending
BUN 6 L Cancelled Pending
Creatinine 0.4 L Cancelled Pending
Glucose 142 H Cancelled Pending
Calcium 6.6 L* Cancelled Pending
Vital Signs:
Vital Signs
Temp Pulse Resp BP Pulse Ox
97.7 F 99 21 62/38 95
02/10/24 11:05 02/10/24 13:30 02/10/24 13:30 02/10/24 13:30 02/10/24 13:30
I&O
02/09/24 02/10/24 02/11/24
06:59 06:59 06:59
Intake Total 4230.0 / 4857.5 3383.5 / 3407.5 166.5 / 166.5
Output Total 1400 / 1400 550 / 550
Balance 2830.0 / 3457.5 2833.5 / 2857.5 166.5 / 166.5
Physical Exam
-
General: Appears Chronically Ill and Other
HEENT: Anicteric and Other (Dobbhoff in place)
Respiratory: Wheezes; Negative Rales
Cardiac: Regular Rhythm
GI: Soft and Nontender
Musculoskeletal: No Cyanosis and No Edema
Neuro: Awake
Psych: Calm
Data Reviewed
-
Labs: Labs Reviewed by me and Discussed with Physician
[2024-02-10] MEDS: NSS (PRESERVATIVE FREE) 20 ML IV (14:11)
[2024-02-10] MEDS: PROTONIX IV 80 MG IV (14:12)
[2024-02-10] MEDS: LASIX 40 MG IV (14:28)
--- NOTE | 2024-02-10 15:43 | CM ---
CM following re: discharge planning.
Discussed in Rounds, reviewed pt's chart, met with pt. Per Rounds meeting, pt with minimal verbal interaction, continue Levophed, requires 4L NC with saturation of 94%, continue supportive care.
Pt is a half-way care resident (LTC) at [facility] and is on an MA bed hold, She requires assist of 1 for transfers and is able to feed herself.
D/C plan: return back to [facility] for a watermelon inspector care
CM will follow with discharge plan updates as hospitalization progresses
[2024-02-10] MEDS: LEVOPHED 250 IV (15:58)
[2024-02-10 16:41] LABS: Hematocrit 22.4 % (37.0-47.0); Hemoglobin 7.9 g/dL (12.0-16.0)
--- NOTE | 2024-02-10 16:49 | PTCARENOTE ---
Turned pt to far left side. SpO2 to 86% without recovery. Pt required returning to more supine position to recover. Digital inspection of rectal vault completed as instructed by intinsivist. No fecal impaction/obstruction noted.
[2024-02-10 16:59] LABS: Blood Urea Nitrogen 7 mg/dl (7-17); Calcium 7.4 mg/dl (8.4-10.2); Carbon Dioxide 26 mmol/L (22-30); Chloride 96 mmol/L (98-107); Estimated Creatinine Clearance 62 ml/min; Glucose 98 mg/dl (70-99); Magnesium 2.3 mg/dl (1.6-2.3); Phosphorus 4.5 mg/dl (2.5-4.5); Potassium 4.1 mmol/L (3.5-5.1); Sodium 133 mmol/L (135-145); eGFR > 60.00
--- NOTE | 2024-02-10 18:07 | PTCARENOTE ---
Pt moved to sport bed without issue.
--- NOTE | 2024-02-10 20:00 | PTCARENOTE ---
Received pt from Day shift RN, mo complaints of pain, oriented to self following simple commands, Afebrile, NSR on monitor. w/ Vaso running PICC line flushing well. Pulses x4 weak. 5L nasal cannula sat 92%, nonproductive cough. GI &
incontinence. see worklist for detailed assessment.
[2024-02-10] MEDS: NSS (PRESERVATIVE FREE) 10 ML IV (21:11)
[2024-02-10] MEDS: PROTONIX IV 40 MG IV (21:12)
[2024-02-11] VITALS (66 sets, daily range): BP systolic 72–128; BP diastolic 46–94; PULSE 92; O2SAT 98; BMI 14.4
--- NOTE | 2024-02-11 | PTCARENOTE ---
No change from previous assessment
[2024-02-11] MEDS: UNASYN IV ×4 (04:00→20:59)
--- NOTE | 2024-02-11 04:00 | PTCARENOTE ---
No change from previous assessment
[2024-02-11] MEDS: LEVOPHED 250 IV ×3 (04:51→22:46)
[2024-02-11 04:59] LABS: Hematocrit 21.4 % (37.0-47.0); Hemoglobin 7.6 g/dL (12.0-16.0); Mean Corp Hgb Conc. 35.5 g/dL (33.0-37.0); Mean Corpuscular Hgb 32.6 pg (27.0-31.0); Mean Corpuscular Volume 91.8 fL (81.0-99.0); Platelet Count 208 10^3/uL (130-400); Red Blood Cell Count 2.33 10^6/uL (4.20-5.40); Red Cell Dist. Width 16.4 % (11.5-14.5); White Blood Cell Count 11.3 10^3/uL (4.8-10.8)
[2024-02-11 05:51] LABS: ALT (SGPT) 13 U/L (0-35); AST (SGOT) 27 U/L (14-36); Albumin 2.6 g/dl (3.5-5.0); Alkaline Phosphatase 66 U/L (38-126); Blood Urea Nitrogen 8 mg/dl (7-17); Calcium 6.6 mg/dl (8.4-10.2); Carbon Dioxide 30 mmol/L (22-30); Chloride 99 mmol/L (98-107); Estimated Creatinine Clearance 62 ml/min; Glucose 120 mg/dl (70-99); Magnesium 1.9 mg/dl (1.6-2.3); Phosphorus 4.2 mg/dl (2.5-4.5); Potassium 3.2 mmol/L (3.5-5.1); Sodium 137 mmol/L (135-145); Total Bilirubin 0.6 mg/dl (0.2-1.3); Total Protein 4.7 g/dl (6.3-8.2); eGFR > 60.00
[2024-02-11] MEDS: CALCIUM GLUCONATE 130 MG IV (06:34)
--- NOTE | 2024-02-11 08:00 | PTCARENOTE ---
Received patient from workers compensation specialist RN. Patient is awake, alert, speaks in a soft garbled voice, very difficult to understand. She denies pain, states that her name is jerome and that she is wet. Patient cleansed. She is received on 7L nasal
cannula, oxygen saturation 100%. She is on levophed at 10mcg/hr for MAP>65. Patient is incontinent of bowel and bladder, Dobhoff tube in right nare, feeds currently on hold. Will address trickle feeds on rounds. Patient is very cachectic in
appearance. Prophylactic Mepilex to bilateral ischial crests. Will continue to turn and reposition with assistance of pillow to help prevent breakdown. orders reviewed.
[2024-02-11] MEDS: NSS (PRESERVATIVE FREE) 10 ML IV ×2 (08:10→21:00)
[2024-02-11] MEDS: PROTONIX IV 40 MG IV ×2 (08:10→21:00)
[2024-02-11] MEDS: ProAmatine 10 MG TUBE (08:22)
[2024-02-11] MEDS: RISPERDAL 1 MG TUBE (08:23)
[2024-02-11] MEDS: PROZAC 20 MG TUBE ×2 (08:23→21:00)
[2024-02-11] MEDS: VITAMIN B1 100 MG PO (08:23)
[2024-02-11] MEDS: COGENTIN 0.5 MG TUBE ×3 (08:23→21:00)
[2024-02-11] MEDS: THERAGRAN 1 TABLET TUBE (08:23)
[2024-02-11] MEDS: LOW STRENGTH ASPIRIN 81 MG PO (08:23)
[2024-02-11] MEDS: DEPAKENE 250 MG TUBE ×3 (08:23→21:00)
[2024-02-11] MEDS: KCL 270 MEQ IV (08:34)
--- NOTE | 2024-02-11 08:43 | W.PN.INTV ---
Today's Communication / Plan
Recommendations
Continue levo
Raise midodrin to 15mg TIDe
Resume tube feeds and raise rate as tolerated; monitor K, Mg and PO4
Continue PPI and monitor Hb with transfusion if needed to keep Hb>7 and plt>50k
Diurese as tolerated given fluid overload seen on CXR on 02/09
GI consulted --> pt will need PEG. Will get EGD and hopefully flex-sig all at once
Aspiration precautions and continue sport bed
Abx as per ID
Assessment
-
Assessment: 53-year-old F with PMHx of chronic hypotension on midodrine seizures, developmental delay, schizophrenia, bipolar disorder and history of UTI who p/w hypotension from her NH ([facility]) and fever to 103F. Patient is poor historian
and unable to obtain accurate HPI as she mumbles when speaks with incoherent speech. Patient was recently in November of this year for aspiration ammonia with septic shock. PEG tube was discussed at that time however this was not done. Patient had
thrombocytopenia as well during that time which precluded prompt placement at that time. In the ER she was febrile to 100.7 �F, pulse rate 92, breathing at 19 breaths/min, hypotensive to 92/60 and saturating 98% on room air. Pt given tylenol SCENIC ARTIST.
Pt had a wet cough that was reported. Labs showed WBC 8.1, Hb 10.7, platelets 241, sodium 126, chloride 92, glucose 63, calcium 6.9 and albumin level 1.9. Cortisol was checked given concern for possible adrenal insufficiency and her level was 120.
UA showed moderate urine bacteria with 11�15 urine WBC and trace leukocyte esterase. Her COVID antigen is negative. CXR showed no acute cardiopulmonary process, and CT abdomen/pelvis showed diffuse colonic and small bowel wall thickening which
could represent enterocolitis with no intestinal obstruction or free air seen. Patient given calcium gluconate, D50, and 2L of IVF with NS 0.9%. Due to concern for aspiration and sepsis with hypotension, she was TRX to ICU for further care.
Chronic medical conditions SCENIC ARTIST:Hypercholesterolemia, seizures, developmental delay, schizophrenia, bipolar disorder, chronic ambulatory dysfunction (wheelchair-bound), chronic hypotension on midodrine, scoliosis, history of UTI, anxiety, bipolar
disorder, history of dysphagia
Impression:
#Shock - suspected sepsis due to enterocolitis vs aspiration vs UTI in setting of hypoalbuminemia
#Abnormal CT Abd/Pelvis with diffuse colonic and small bowel wall thickening suspicious for enterocolitis
#Acute respiratory failure with hypoxemia on supplemental oxygen
#Acute on chronic anemia due to blood loss now with 'pink' stool concerning for GI bleed - DDx includes brisk UGIB vs LGIB (baseline Hb: 10-12g/dL)
#Hx of thrombocytopenia
#Hypoglycemia
#Hypochloremic, hyponatremia - likely due to reduced PO intake (this is further supported by pt's hypoglycemia in setting of normal random cortisol)
#Hypomagnesemia and hypophosphatemia likely due to refeeding syndrome
#Hypoalbuminemia likely due to malnutrition
#Abnormal urinalysis suspicious for UTI
#Developmental delay with Hx of dementia
#Chronic hypotension on midodrine as an outpatient
Plan:
- Continue Abx --> Now on Unasyn after being on Zosyn since 02/08/2024 - she will need total of 10-14 days of ABx
- ID on board --> recs appreciated
- Continue vasopressors with levophed with goal MAP>65
- Follow up infectious workup with sputum Cx, urine Cx and blood Cx X2
- Her urine antigens for legionella and Strep PNA are both negative
- Maintain euglycemia with goal BG 140-180
- Resume tube feeds as pt's electrolytes have improved; replete K>4, Mg>2, PO4>3 and trend labs q8-12hr
- Continue midodrine in attempt to wean off vasopressors --> raise to 15mg TID
- Given that her serum Na is low and her urine Na is low, I administered an additional 1L bolus of NS 0.9% on 02/08 --> unfortunately on 02/09 she appeared more hypoxic and CXR shows e/o volume overload--> no additional IVF at this time and diurese
--> will start lasix 40mg IV daily x 3 days
- Will need PEG given concern for chronic aspiration; otherwise continue diet as per LOBSTER CATCHER; GI on board --> given her hematochezia with acute on chronic anemia, she will need endoscopy. Please for EGD during PEG and if persistent bloody stool then
will get flex-sig during EGD
- Serial Hb and transfuse if needed to keep Hb>7, plt>50k
- Continue PPI 40mg IV q12hr
- Resume home PO meds
- Administer supplemental albumin with goal serum albumin level >3g/dL
- Avoid narcotics or other sedating medications
- Replete K>4, Mg>2
- Aspiration precautions
- SW consult given pt is from [place]
- stress ulcer ppx: continue PPI IV BID
- DVT ppx: SCDs; hold chemical ppx for now given acute gi bleed
Critical care statement: A total of 37 minutes of critical care time was provided for this patient today. This includes management of unstable vital signs, evaluation of the patient at bedside, reviewing the patient's pertinent medical records
including radiographs, microbiology, laboratory evaluations, and discussion with primary team, consultants, pharmacy, nutrition, physical therapy, case management, charge nurse, critical care nursing, and respiratory therapy.
Data:
CT A/P with IV contrast 02-08-2024: MARKEDLY LIMITED STUDY DUE TO NUMEROUS FACTORS.
Gross findings suggesting some diffuse colonic and some small bowel wall thickening which could represent enterocolitis. No intestinal obstruction or free air.
CXR 02-08-2024: No acute cardiopulmonary process.
CXR 02-10-2024:
Somewhat limited study with patient rotated to the right.
Slightly prominent pulmonary interstitial markings bilaterally. Findings could represent interstitial pneumonitis or edema.
No pneumothorax.
Likely small right pleural effusion.
Subjective Dataa
Subjective Data
Date of Service:
Date of Service: February 11, 2024
Chief Complaint: Medical Legal Investigator Follow Up
Subjective:
Pt seen and evaluated this AM. HR 80, BP 93/65 and SpO2 99% on 7L/min. Yesterday, RN saw stool that appeared pink, stool was Hemoccult positive and PPI was started. No fecal impaction on rectal exam. On levoped at 6mcg/min. Diarrhea this AM
that was brown. She is also incontinent to urine.
Review of Systems
General: Other (difficult to obtain due to patient's clinical status)
Objective Data
Data Reviewed
Vital Signs / I&O / Oxygen:
Vital Signs
Temp Pulse Resp BP Pulse Ox
98.2 F 94 34 110/65 100
02/11/24 07:58 02/11/24 09:00 02/11/24 09:00 02/11/24 09:00 02/11/24 09:00
Intake and Output
02/10/24 02/11/24 02/12/24
06:59 06:59 06:59
Intake Total 3383.5 / 3482.5 1859.0 / 1896.5 637.5 / 637.5
Output Total 550 / 550
Balance 2833.5 / 2932.5 1859.0 / 1896.5 637.5 / 637.5
SaO2 100
Nasal Cannula flow liters per 5
minute
Physical Exam
General: Comfortable and Sweats (negative)
HEENT: Normocephalic and Anicteric
Cardiovascular: S1-S2 and Peripheral Edema (negative)
Respiratory: Wheeze (negative), Crackles (bilateral), Rhonchi (left anterior lung field) and Accessory Resp Muscle Use (negative)
GI: Soft, Non Distended, Non Tender and Normal Bowel Sounds
Neurology: Awake, Alert and Depressed
Skin: Warm, Dry and Bruising (negative)
Labs/Micro/Reports
Lab Data
02/11/24 04:49
02/11/24 04:49
Microbiology
02/08/24 01:42 Blood/Venous Blood Culture - Preliminary
No Growth in 72 hours- Final report to follow
02/08/24 01:42 Blood/Venous Blood Culture - Preliminary
No Growth in 72 hours- Final report to follow
02/08/24 02:46 Urine Urine Culture - Final
02/08/24 17:50 Urine Legionella Urinary Antigen - Final
Negative for Legionella pneumophila Serogroup 1 antigen.
A negative result does not rule out the possiblity of
Legionella infection due to other serogroups or species of
Legionella. Clinical correlation is recommended.
02/08/24 17:50 Urine Streptococcus pneumoniae Antigen (M - Final
Negative for Streptococcus pneumoniae antigen.
A negative result does not exclude infection with
Streptococcus pneumoniae. Clinical correlation is
recommended.
02/08/24 08:13 Nose Nasal Screen MRSA (PCR) - Final
MRSA not detected - performed by PCR methodology.
--- NOTE | 2024-02-11 09:21 | W.PN.HOSP.TC ---
Addendum entered and electronically signed by Issa Kelley MD 02/11/24 23:09:
Attending Addendum-
I saw and evaluated the patient. I reviewed the resident�s note and agree with findings and plan as documented in the resident�s note. patient continues to be barely audible or comprehensible. d/w nursing having loose stools. Full 12 point ROS
reviewed and negative except as documented Exam: Gen frail cachectic appearing HEENT- dobhoff in place heart RRR lungs crackles at bases b/l abd soft NT LE trace b/l LE edema, PICC in place RUE- Plan:
# Hypovolemic Shock- cont levophed, vasopressin dced, increase midodrine further, appreciate icu input, maintain MAP > 65, monitor closely in ICU cont abx
# Probable Aspiration PNA- cont unasyn per ID, d/w speech- cont NPO and restart dobhoff feeds
# Dysphagia and Severe PCM- cont feeds, appreciate GI input-for PEG placement when hemodynamically stable, likely wednesday- will not prevent aspiration- poor overall prog t/c ethics eval
# Acute Anemia- likely dilutional and secondary to nutritional deficiency- cont to monitor hold transfusion until <7.
# Severe Electrolyte Imbalance- likely refeeding syndrome- hypo- K, Ca, Mg and PO4 - replete- cont to monitor closely repeat labs BID, restart DHT trickle feeds
# Hyponatremia- resolved, repeat BMP in am
# Seizure D/O- cont meds
# Psych- Bipolar Schizoaffective- cont meds t/c c/s psych for eval /medication review
Time spent coordinating care, review of plan of care with resident, review of records, med rec, consults, notes, labs, rads, d/w nursing, ICU� 58 mins
Original Note:
Today's Communication/Plan
-
see a/p
Assessment / Plan
Assessment / Plan
A/P:� Patient is a 53y F with PMH significant for schizophrenia, cognitive impairment, chronic malnutrition and seizure disorder who presents to ED for evaluatio nof fever and hypotension.
# Sepsis secondary to enterocolitis versus aspiration pneumonitis versus UTI
# Chronic dysphagia
Chest x-ray in ED shows no acute pulmonary process.
Repeat chest x-ray shows no significant focal parenchymal opacification
ID input appreciated. Consider palliative/hospice, narrow antibiotics to Unasyn
Vasopressin DC'd, continue midodrine at current dosage, continue Levophed
UA contaminated, no significant pyuria
Cultures negative thus far.
aspiration precautions
GI input appreciated. Patient agreeable to PEG tube placement.
Anemia
-Likely dilutional and secondary to nutritional deficiency
-Hemoglobin today 7.6
-Transfusion if hemoglobin drops below 7
-Trend hemoglobin, monitor CBC
#Hyponatremia
Improved to 137
Monitor BMP
#Hypokalemia
#Hypomagnesemia
#Hypocalcemia
-Replete
�
#Seizure Disorder
�- No evidence of recent / active seizures.
�- Continue AEDs without changes / interruption.
�- Check Depakote levels.
�- Monitor for any breakthrough seizure activity.
#Schizophrenia
Bipolar Disorder
Cognitive Impairment
�- Stable.� Continue risperidone and benztropine.
�- Hold SSRI acutely given hyponatremia.
�-Watch for adverse effects on psych meds
DVT Prophylaxis:�LMWH
Code Status:� Full
Anticipated Discharge: > 48 hours
Objective Data
-
Labs:
Laboratory Results
02/11/24
04:49
WBC 11.3 H
Hgb 7.6 L
Hct 21.4 L
Plt Count 208
Sodium 137
Potassium 3.2 L
Chloride 99
Carbon Dioxide 30
BUN 8
Creatinine 0.4 L
Glucose 120 H
Calcium 6.6 L*
Total Bilirubin 0.6
AST 27
ALT 13
Alkaline Phosphatase 66
Vital Signs:
Vital Signs
Temp Pulse Resp BP Pulse Ox
98.2 F 85 31 110/69 97
02/11/24 07:58 02/11/24 08:22 02/10/24 18:00 02/11/24 08:22 02/10/24 18:00
I&O
02/10/24 02/11/24 02/12/24
06:59 06:59 06:59
Intake Total 3383.5 / 3482.5 1859.0 / 1896.5 105.0 / 105.0
Output Total 550 / 550
Balance 2833.5 / 2932.5 1859.0 / 1896.5 105.0 / 105.0
Review of Systems
-
All other systems: Reviewed and negative (Except as documented)
Physical Exam
-
General: Appears Chronically Ill
HEENT: Other (dobbhoff in place)
Respiratory: Negative Rales, Rhonchi or Crackles
Cardiac: Regular Rhythm and S1/S2
GI: Soft and Nontender
Musculoskeletal: No Cyanosis and No Edema
Neuro: Awake
Psych: Calm
Data Reviewed
-
Labs: Labs Reviewed by me and Discussed with Physician
[2024-02-11] MEDS: KCL ELIXIR 40 MEQ TUBE (11:44)
[2024-02-11] MEDS: LASIX 40 MG IV (11:44)
--- NOTE | 2024-02-11 11:58 | W.PN.GI.CBS2 ---
Addendum entered and electronically signed by Yan Hyatt MD 02/11/24 16:12:
I saw and examined the patient.
The FILLING HAULER or PA's note was reviewed and I agree with the note.
Comment:
Pt still with electrolyte imbalance, sedate now, impaction, rectal bleeding
getting dobhoff feeds
abd: soft
plan:
monitor hgb
Peg when stable
MOM enema
antibiotics as per ID
Addendum entered and electronically signed by MARY Castaneda 02/11/24 12:57:
I left detailed message with TOMEKA jenkins for plan and updates
Original Note:
Today's Communication / Plan
-
tube feeds held with electrolyte imbalance with concern for refeeding syndrome
to slowly initiate back tube feeds today with close follow of electrolytes-- appreciate dietary input
rectal exam today with soft impaction with overflow diarrhea-- likely bleeding related to impaction
will give MOM enema
still not medically stable for peg t/c wednesday if improved still remains on low dose pressors
cont abx per ID
trend hbg with anemia plan for EGD with peg and OP colonoscopy when improved-- iron studies not consistent with iron deficiency
currently off PPI consider adding if any signs of bleeding
Assessment / Plan
-
Pt is a 52 y/o woman with a hx of seizures, bipolar, developmental delay, ambulatory dysfunction, chronic hypotension admitted from [place] with admission in November with sepsis/PNA requiring pressors. During admission she had DHT placed. GI followed
during admission for possible peg. In discussion with patient and guardian patient had declined peg and also noted with significant thrombocytopenia and peg was held. She now returned with fever and hypotension with concern for recurrent sepsis
and aspiration. She is also noted with significant electrolyte imbalance and CT with noted some diffuse colonic and some small bowel wall thickening which could represent enterocolitis. No intestinal obstruction or free air. Pt has had also
noted with additional 15 lbs wt loss since November and now 79lbs.
-sepsis/fever- PNA vs urinary vs GI with enteritis per ID
-aspiration pneumonitis
-wt loss
-concern for refeeding syndrome with electrolyte imbalance with initiation of tube feeds
-rectal bleeding and soft fecal impaction on exam with overflow diarrhea
-CT with concern for enterocolitis
-chronic hypotension on midodrine with BP down to 50's after admission
-acute on chronic anemia iron studies not consistent with iron deficiency
-dysphagia
-electrolyte imbalance on admission
-hypoalbuminemia
-severe protein malnutrition
-elevated random cortisol level
other medical problems:
-seizure disorder
-bipolar
-developmental delay
-ambulatory dysfunction
PLAN:
tube feeds held with electrolyte imbalance with concern for refeeding syndrome
to slowly initiate back tube feeds today with close follow of electrolytes-- appreciate dietary input
rectal exam today with soft impaction with overflow diarrhea-- likely bleeding related to impaction
will give MOM enema
still not medically stable for peg t/c wednesday if improved still remains on low dose pressors
cont abx per ID
trend hbg with anemia plan for EGD with peg and OP colonoscopy when improved-- iron studies not consistent with iron deficiency
currently off PPI consider adding if any signs of bleeding
Subjective
Subjective
Date of Service: February 11, 2024
loose brown stools reported bleeding yesterday Tube feeds on hold with concern for refeeding with slow advancement
Objective
Data Reviewed
Laboratory Data:
Laboratory Results
02/11/24 04:49
Laboratory Results
PT 17.3 Sec (11.4-14.6) H 02/08/24 10:48
INR 1.44 02/08/24 10:48
APTT 37.6 Sec (23.4-35.0) H 02/08/24 10:48
Phosphorus 4.2 mg/dl (2.5-4.5) 02/11/24 04:49
Magnesium 1.9 mg/dl (1.6-2.3) 02/11/24 04:49
Total Bilirubin 0.6 mg/dl (0.2-1.3) 02/11/24 04:49
AST 27 U/L (14-36) 02/11/24 04:49
ALT 13 U/L (0-35) 02/11/24 04:49
Alkaline Phosphatase 66 U/L (38-126) 02/11/24 04:49
Vital Signs and I&O:
Vital Signs
Temp Pulse Resp BP Pulse Ox
97.8 F 94 34 110/65 100
02/11/24 11:16 02/11/24 09:00 02/11/24 09:00 02/11/24 09:00 02/11/24 09:00
I&O
02/10/24 02/11/24 02/12/24
06:59 06:59 06:59
Intake Total 3383.5 / 3482.5 1859.0 / 1896.5 592.5 / 592.5
Output Total 550 / 550
Balance 2833.5 / 2932.5 1859.0 / 1896.5 592.5 / 592.5
Physical Exam
Physical Exam
HEENT: Anicteric, Moist mucous membranes and Other (frail appearing)
Cardiology: Normal Sinus Rhythm
Pulmonary: Other (decreased )
GI: Soft, Non Distended and Non Tender
Rectal: Brown and Other (loose liquid stool with soft impaction higher up in rectum)
Extremities: No Edema
Neuro: Other (soft voice)
[2024-02-11] MEDS: ProAmatine 15 MG TUBE ×2 (12:19→17:09)
[2024-02-11] MEDS: ROBITUSSIN 400 MG TUBE ×3 (12:19→21:00)
--- NOTE | 2024-02-11 12:34 | W.PN.ID1 ---
Date of Service
Date of Service: February 11, 2024
Today's Communication
Continue with Unasyn for today.
Assessment / Plan
Hypotension
Fever
- improved
Leukocytosis
- low-grade today.
- covid ag neg, influenza neg
- CT could be consistent with enteritis
- UA was contaminated however no significant pyuria, no need to reculture.
- Cultures negative thus far
Continue with Unasyn for today.
- follow clinically
Profound Cachexia
- 40 kg weight loss since 2012; 8-10 kg weight loss in the last year
- T-spot TB test pending (though low concern for active TB)
- HIV screen pending - has a boyfriend, previously sexually active - has not been screened
Overall prognosis guarded
����������������������������������������������������������
Chief Complaint
-: Pneumonia
Subjective / Review of Systems
Patient seen and examined. No significant changes overnight.
Vital Signs / Physical Exam
Vital Signs
Vital Signs
Temp Pulse Resp BP Pulse Ox
97.8 F 94 34 82/46 100
02/11/24 11:16 02/11/24 09:00 02/11/24 09:00 02/11/24 12:19 02/11/24 09:00
Physical Exam
Constitutional: Chronically Ill and Cachetic
Eyes: Sclera Anicteric
Cardiovascular: S1/S2; Negative S3/S4
Pulmonary: Coarse (Throughout) and Non Labored
Gastrointestinal: Soft, Distended, Normal Bowel Sounds, No Rebound and No Guarding
Skin: Negative Jaundice
Neurological: Awake and Alert
Psychological: Calm
Objective Data
Lab Data
Lab Results
02/11/24 04:49
PT 17.3 Sec (11.4-14.6) H 02/08/24 10:48
INR 1.44 02/08/24 10:48
APTT 37.6 Sec (23.4-35.0) H 02/08/24 10:48
Estimated Creat Clear 62 ml/min 02/11/24 04:49
Lactic Acid Cancelled 02/08/24 05:15
Total Bilirubin 0.6 mg/dl (0.2-1.3) 02/11/24 04:49
AST 27 U/L (14-36) 02/11/24 04:49
ALT 13 U/L (0-35) 02/11/24 04:49
Alkaline Phosphatase 66 U/L (38-126) 02/11/24 04:49
Most recent labs reviewed.
Micro Results:
02/08/24 01:42 Blood Culture - Preliminary
Blood/Venous No Growth in 72 hours- Final report to follow
02/08/24 01:42 Blood Culture - Preliminary
Blood/Venous No Growth in 72 hours- Final report to follow
02/08/24 02:46 Urine Culture - Final
Urine
02/08/24 17:50 Legionella Urinary Antigen - Final
Urine Negative for Legionella pneumophila Serogroup 1 antigen.
A negative result does not rule out the possiblity of
Legionella infection due to other serogroups or species of
Legionella. Clinical correlation is recommended.
Streptococcus pneumoniae Antigen (M - Final
Negative for Streptococcus pneumoniae antigen.
A negative result does not exclude infection with
Streptococcus pneumoniae. Clinical correlation is
recommended.
02/08/24 08:13 Nasal Screen MRSA (PCR) - Final
Nose MRSA not detected - performed by PCR methodology.
02/08/24 01:27 Influenza Types A & B (LANA) - Final
Nasal Swab Negative for Influenza A & B, NAAT
Negative results must be combined with clinical observations
and patient history.
Nucleic Acid Amplification test (NAAT)performed on the
[employer] platform.
Imaging:
02/10/2024 CXR (portable): Study limited secondary to rotation to the right. Slightly prominent pulmonary interstitial markings which could represent interstitial pneumonitis or edema.
Care Review
Plan reviewed with: Physician (GI Service)
--- NOTE | 2024-02-11 13:23 | CM ---
CM following re: discharge planning.
Discussed in Rounds, reviewed pt's chart. Per Rounds meeting, continue supportive care, Gastroenterology and ID following.
Pt is a m[facility] care resident (LTC) at [facility] and is on an MA bed hold, She requires assist of 1 for transfers and is able to feed herself. The patient was placed there last year after her mother, who was her caregiver, passed
away. Pt has a brother who has little involvement in pt's care.
D/C plan: return back to [facility] for a mcc care
CM will follow with discharge plan updates as hospitalization progresses
--- NOTE | 2024-02-11 14:02 | PTCARENOTE ---
Administered milk and molasses enema as ordered by GI. GI at bedside and did rectal exam prior. patient has been having watery loose stools
--- NOTE | 2024-02-11 14:34 | SUR.OPER ---
restarted trickle feeds, osmolite at 10ml/hr with standard flush
--- NOTE | 2024-02-11 16:10 | PTCARENOTE ---
No change in patients assessment. continues to be incontinent, tolerating trickle feeds, recheck of lab work sent. Maintaining safe environment.
--- NOTE | 2024-02-11 16:12 | W.PN.UPDATE ---
Update Note
Progress Note Update
for billing purposes only
[2024-02-11 16:34] LABS: Blood Urea Nitrogen 7 mg/dl (7-17); Calcium 7.7 mg/dl (8.4-10.2); Carbon Dioxide 28 mmol/L (22-30); Chloride 101 mmol/L (98-107); Estimated Creatinine Clearance 71 ml/min; Glucose 128 mg/dl (70-99); Magnesium 1.6 mg/dl (1.6-2.3); Phosphorus 4.4 mg/dl (2.5-4.5); Potassium 3.8 mmol/L (3.5-5.1); Sodium 135 mmol/L (135-145); eGFR > 60.00
[2024-02-11] MEDS: KCL ELIXIR 20 MEQ TUBE (17:09)
[2024-02-11] MEDS: MAGNESIUM OXIDE 500 MG TUBE (17:09)
[2024-02-11 18:31] LABS: HIV Combo Negative (Negative)
--- NOTE | 2024-02-11 20:12 | PTCARENOTE ---
pt received from previous rn- aox1, soft and slow speech, pt given full bed bath, chg, and pericare. right dubhoff infusing trickle feeds- pt tolerating. oral care provided. turned and repositioned. bony prominences with protectives foams and
pillows. scds on. nsr on monitor, on 7Lmidflow. denies pain. all safety precautions in place.
[2024-02-12] VITALS (35 sets, daily range): BP systolic 71–118; BP diastolic 42–81; BMI 13.2
--- NOTE | 2024-02-12 | PTCARENOTE ---
no change from previous assessment
[2024-02-12] MEDS: MELATONIN 10 MG PO (00:20)
[2024-02-12] MEDS: UNASYN IV ×4 (02:47→19:36)
[2024-02-12 04:02] LABS: Hematocrit 21.8 % (37.0-47.0); Hemoglobin 7.5 g/dL (12.0-16.0); Mean Corp Hgb Conc. 34.4 g/dL (33.0-37.0); Mean Corpuscular Hgb 31.9 pg (27.0-31.0); Mean Corpuscular Volume 92.8 fL (81.0-99.0); Nucleated Red Blood Cells % 0.2 %; Platelet Count 218 10^3/uL (130-400); Red Blood Cell Count 2.35 10^6/uL (4.20-5.40); Red Cell Dist. Width 16.2 % (11.5-14.5); White Blood Cell Count 11.5 10^3/uL (4.8-10.8)
[2024-02-12 04:21] LABS: Blood Urea Nitrogen 10 mg/dl (7-17); Calcium 7.2 mg/dl (8.4-10.2); Carbon Dioxide 29 mmol/L (22-30); Chloride 99 mmol/L (98-107); Estimated Creatinine Clearance 65 ml/min; Glucose 103 mg/dl (70-99); Potassium 3.5 mmol/L (3.5-5.1); Sodium 136 mmol/L (135-145); eGFR > 60.00
[2024-02-12] MEDS: KCL 270 MEQ IV (04:49)
[2024-02-12] MEDS: CALCIUM CHLORIDE 10% SYRINGE 60 MG IV (04:49)
--- NOTE | 2024-02-12 05:02 | PTCARENOTE ---
assessment unchanged, weaned to 2LNC. turned and repositioned. electrolyte repletment ordered and administering.
[2024-02-12 05:08] LABS: Band Neutrophils 22 % (0-3); Eosinophils 1 % (0-6); Lymphocytes 33 % (20-51); Monocytes 4 % (2-9); Segmented Neutrophils 39 % (42-75)
[2024-02-12 05:09] LABS: Myelocytes 1 % (-); Platelets Checked Yes
[2024-02-12 05:12] LABS: Nucleated Red Blood Cells 2 (-)
[2024-02-12 05:13] LABS: Normal RBC Morphology Yes; Total Cells Counted 100; Vacuolated Segs 1+
[2024-02-12] MEDS: LEVOPHED 250 IV ×2 (05:34→15:40)
--- NOTE | 2024-02-12 07:06 | W.PN.ID1 ---
Date of Service
Date of Service: February 12, 2024
Today's Communication
Continue Unasyn for today.
Assessment / Plan
Hypotension
Fever
- improved
Leukocytosis
- low-grade
- covid ag neg, influenza neg
- Cultures negative thus far
Continue with Unasyn (d#5)
- follow clinically
Profound Cachexia
- 40 kg weight loss since 2012; 8-10 kg weight loss in the last year
- Likely secondary to protein calorie malnutrition
- T-spot TB test pending (though low concern for active TB)
Overall prognosis guarded
����������������������������������������������������������
Chief Complaint
-: Pneumonia
Subjective / Review of Systems
Patient seen and examined. No significant changes overnight.
Review of Systems: No Fever
Vital Signs / Physical Exam
Vital Signs
Vital Signs
Temp Pulse Resp BP Pulse Ox
98.1 F 83 34 98/51 97
02/12/24 04:24 02/12/24 06:00 02/12/24 06:00 02/12/24 05:15 02/12/24 06:00
Physical Exam
Physical Exam:
Constitutional: Chronically Ill and Cachetic
Eyes: Sclera Anicteric
Cardiovascular: S1/S2; Negative S3/S4
Pulmonary: Coarse (Throughout) and Non Labored
Gastrointestinal: Soft, Distended, Normal Bowel Sounds, No Rebound and No Guarding
Skin: Negative Jaundice
Neurological: Resting comfortably; easily arousable.
Psychological: Calm
Objective Data
Lab Data
Lab Results
02/12/24 03:46
02/12/24 03:46
PT 17.3 Sec (11.4-14.6) H 02/08/24 10:48
INR 1.44 02/08/24 10:48
APTT 37.6 Sec (23.4-35.0) H 02/08/24 10:48
Estimated Creat Clear 65 ml/min 02/12/24 03:46
Lactic Acid Cancelled 02/08/24 05:15
Total Bilirubin 0.6 mg/dl (0.2-1.3) 02/11/24 04:49
AST 27 U/L (14-36) 02/11/24 04:49
ALT 13 U/L (0-35) 02/11/24 04:49
Alkaline Phosphatase 66 U/L (38-126) 02/11/24 04:49
Most recent labs reviewed.
Micro Results:
02/08/24 01:42 Blood Culture - Preliminary
Blood/Venous No Growth in 4 days- Final report to follow
02/08/24 01:42 Blood Culture - Preliminary
Blood/Venous No Growth in 4 days- Final report to follow
02/08/24 02:46 Urine Culture - Final
Urine
02/08/24 17:50 Legionella Urinary Antigen - Final
Urine Negative for Legionella pneumophila Serogroup 1 antigen.
A negative result does not rule out the possiblity of
Legionella infection due to other serogroups or species of
Legionella. Clinical correlation is recommended.
Streptococcus pneumoniae Antigen (M - Final
Negative for Streptococcus pneumoniae antigen.
A negative result does not exclude infection with
Streptococcus pneumoniae. Clinical correlation is
recommended.
02/08/24 08:13 Nasal Screen MRSA (PCR) - Final
Nose MRSA not detected - performed by PCR methodology.
02/08/24 01:27 Influenza Types A & B (LANA) - Final
Nasal Swab Negative for Influenza A & B, NAAT
Negative results must be combined with clinical observations
and patient history.
Nucleic Acid Amplification test (NAAT)performed on the
[employer] platform.
Imaging:
02/10/2024 CXR (portable): Study limited secondary to rotation to the right. Slightly prominent pulmonary interstitial markings which could represent interstitial pneumonitis or edema.
--- NOTE | 2024-02-12 08:00 | PTCARENOTE ---
Assumed care of patient. Pt rec'd sleeping but easily arousable. Oriented to self. Soft voice....able to let needs be known. LE's contracted. Able to use upper extremities. S1 S2 reg w/ NSR on monitor. Weak PP. Trace LLE. Knee hi SCD's on.
On 3L N/C...sats 98-100%. Lungs diminished w/ scattered crackles. Moist NPC. Oral care done. Abdomen flat...+BS. (R) nare dhf w/ osmo @ 10ml/hr w/ 25ml/hr. Purewick on...incontinent for dani/tea colored urine. Pericare done. Skin pale in
color. Multiple dressings covering marilin prominences. Sacrum red but blancable...MASD noted. Right DL PICC w/ levophed gtt infusing...see intervention. VS documented. Will continue to monitor closely.
[2024-02-12] MEDS: PROTONIX IV 40 MG IV ×2 (08:05→19:37)
[2024-02-12] MEDS: NSS (PRESERVATIVE FREE) 10 ML IV ×2 (08:05→19:36)
[2024-02-12] MEDS: DEPAKENE 250 MG TUBE ×3 (08:25→22:59)
[2024-02-12] MEDS: ProAmatine 15 MG TUBE ×3 (08:25→17:11)
[2024-02-12] MEDS: LASIX 40 MG IV ×2 (08:26→19:37)
[2024-02-12] MEDS: COGENTIN 0.5 MG TUBE ×3 (08:26→23:00)
[2024-02-12] MEDS: VITAMIN B1 100 MG PO (08:26)
[2024-02-12] MEDS: THERAGRAN 1 TABLET TUBE (08:26)
[2024-02-12] MEDS: LOW STRENGTH ASPIRIN 81 MG PO (08:26)
[2024-02-12] MEDS: ROBITUSSIN 400 MG TUBE ×4 (08:26→23:00)
[2024-02-12] MEDS: PROZAC 20 MG TUBE ×2 (08:26→19:37)
[2024-02-12] MEDS: RISPERDAL 1 MG TUBE (08:27)
[2024-02-12 09:01] LABS: Quantiferon NIL 0.07 IU/mL; Quantiferon TB Gold Plus Negative (Negative)
--- NOTE | 2024-02-12 09:01 | W.PN.INTV ---
Today's Communication / Plan
Recommendations
Continue levo
Continue midodrine 15mg TID
Tube feeds and raise rate as tolerated; monitor K, Mg and PO4
Continue PPI and monitor Hb with transfusion if needed to keep Hb>7 and plt>50k
Raise diuresis to 40mg IV BID given worsening volume overload on today's CXR
GI consulted --> pt will need PEG. Will get EGD and hopefully flex-sig all at once
Aspiration precautions and continue sport bed
Abx as per ID
Assessment
-
Assessment: 53-year-old F with PMHx of chronic hypotension on midodrine seizures, developmental delay, schizophrenia, bipolar disorder and history of UTI who p/w hypotension from her NH ([facility]) and fever to 103F. Patient is poor historian
and unable to obtain accurate HPI as she mumbles when speaks with incoherent speech. Patient was recently in November of this year for aspiration ammonia with septic shock. PEG tube was discussed at that time however this was not done. Patient had
thrombocytopenia as well during that time which precluded prompt placement at that time. In the ER she was febrile to 100.7 �F, pulse rate 92, breathing at 19 breaths/min, hypotensive to 92/60 and saturating 98% on room air. Pt given tylenol OSS ARCHITECT.
Pt had a wet cough that was reported. Labs showed WBC 8.1, Hb 10.7, platelets 241, sodium 126, chloride 92, glucose 63, calcium 6.9 and albumin level 1.9. Cortisol was checked given concern for possible adrenal insufficiency and her level was 120.
UA showed moderate urine bacteria with 11�15 urine WBC and trace leukocyte esterase. Her COVID antigen is negative. CXR showed no acute cardiopulmonary process, and CT abdomen/pelvis showed diffuse colonic and small bowel wall thickening which
could represent enterocolitis with no intestinal obstruction or free air seen. Patient given calcium gluconate, D50, and 2L of IVF with NS 0.9%. Due to concern for aspiration and sepsis with hypotension, she was TRX to ICU for further care.
Chronic medical conditions OSS ARCHITECT:Hypercholesterolemia, seizures, developmental delay, schizophrenia, bipolar disorder, chronic ambulatory dysfunction (wheelchair-bound), chronic hypotension on midodrine, scoliosis, history of UTI, anxiety, bipolar
disorder, history of dysphagia
Impression:
#Shock - suspected sepsis due to enterocolitis vs aspiration vs UTI in setting of hypoalbuminemia
#Abnormal CT Abd/Pelvis with diffuse colonic and small bowel wall thickening suspicious for enterocolitis
#Acute respiratory failure with hypoxemia on supplemental oxygen
#Acute on chronic anemia due to blood loss now with 'pink' stool concerning for GI bleed - DDx includes brisk UGIB vs LGIB (baseline Hb: 10-12g/dL)
#Hx of thrombocytopenia
#Hypoglycemia
#Hypochloremic, hyponatremia - likely due to reduced PO intake (this is further supported by pt's hypoglycemia in setting of normal random cortisol)
#Hypomagnesemia and hypophosphatemia likely due to refeeding syndrome
#Hypoalbuminemia likely due to malnutrition
#Abnormal urinalysis suspicious for UTI
#Developmental delay with Hx of dementia
#Chronic hypotension on midodrine as an outpatient
Plan:
- Continue Abx --> Now on Unasyn after being on Zosyn since 02/08/2024 - she will need total of 10-14 days of ABx
- ID on board --> recs appreciated
- Continue vasopressors with levophed with goal MAP>65
- Follow up infectious workup with sputum Cx, urine Cx and blood Cx X2
- Her urine antigens for legionella and Strep PNA are both negative
- Maintain euglycemia with goal BG 140-180
- Continue tube feeds and advance to goal as tolerated- replete K>4, Mg>2, PO4>3 and trend labs q8-12hr
- Continue midodrine 15mg TID (raised from 10mg TID on 02/10) in attempt to wean off vasopressors
- Given that her serum Na is low and her urine Na is low, I administered an additional 1L bolus of NS 0.9% on 02/08 --> unfortunately on 02/09 she appeared more hypoxic and CXR shows e/o volume overload--> no additional IVF at this time and diurese
--> CXR today (02/11) shows worsening interstitial thickening concerning for volume overload. Raise Lasix to 40mg IV BID as she is still not net negative
- Will need PEG given concern for chronic aspiration; otherwise continue diet as per INDEPENDENT PRODUCER; GI on board --> given her hematochezia with acute on chronic anemia, she will need endoscopy. Please for EGD during PEG and if persistent bloody stool then
will get flex-sig during EGD
- Serial Hb and transfuse if needed to keep Hb>7, plt>50k
- Continue PPI 40mg IV q12hr
- Resume home PO meds
- Administer supplemental albumin with goal serum albumin level >3g/dL
- Avoid narcotics or other sedating medications
- Replete K>4, Mg>2
- Aspiration precautions
- SW consult given pt is from [place]
- stress ulcer ppx: continue PPI IV BID
- DVT ppx: SCDs; hold chemical ppx for now given acute gi bleed
Critical care statement: A total of 38 minutes of critical care time was provided for this patient today. This includes management of unstable vital signs, evaluation of the patient at bedside, reviewing the patient's pertinent medical records
including radiographs, microbiology, laboratory evaluations, and discussion with primary team, consultants, pharmacy, nutrition, physical therapy, case management, charge nurse, critical care nursing, and respiratory therapy.
Data:
CT A/P with IV contrast 02-08-2024: MARKEDLY LIMITED STUDY DUE TO NUMEROUS FACTORS.
Gross findings suggesting some diffuse colonic and some small bowel wall thickening which could represent enterocolitis. No intestinal obstruction or free air.
CXR 02-08-2024: No acute cardiopulmonary process.
CXR 02-10-2024:
Somewhat limited study with patient rotated to the right.
Slightly prominent pulmonary interstitial markings bilaterally. Findings could represent interstitial pneumonitis or edema.
No pneumothorax.
Likely small right pleural effusion.
CXR 02-12-2024:
Patient remains rotated to the right. Right PICC line catheter and nasogastric tube remain in place.
Slightly increased hazy opacity at the right lung base, likely progressive pleural effusion.
Progressive interstitial thickening is demonstrated throughout the left hemithorax. Asymmetric interstitial edema versus interstitial infectious or inflammatory changes/pneumonitis. No focal dense consolidation.
Subjective Dataa
Subjective Data
Date of Service:
Date of Service: February 12, 2024
Chief Complaint: Head Librarian Follow Up
Subjective:
Patient seen and evaluated today at bedside. Currently on 3 L/min nasal cannula saturating 95%. Heart rate 77, and BP 104/81 on Levophed at 6mcg/min. Patient appears to not be in acute distress.
Review of Systems
General: Other (Unable to obtain due to patient's acute clinical status)
Objective Data
Data Reviewed
Vital Signs / I&O / Oxygen:
Vital Signs
Temp Pulse Resp BP Pulse Ox
97.9 F 58 28 99/42 100
02/12/24 12:00 02/12/24 13:06 02/12/24 13:04 02/12/24 13:06 02/12/24 13:04
Intake and Output
02/11/24 02/12/24 02/13/24
06:59 06:59 06:59
Intake Total 1859.0 / 1896.5 1840.1 / 1905.1 1032.5 / 1032.5
Output Total 1200 / 1200
Balance 1859.0 / 1896.5 1840.1 / 1905.1 -167.5 / -167.5
SaO2 100
Nasal Cannula flow liters per 3
minute
Physical Exam
General: Comfortable and Sweats (negative)
HEENT: Normocephalic and Anicteric
Cardiovascular: S1-S2 and Peripheral Edema (negative)
Respiratory: Wheeze (negative), Crackles (bilateral), Rhonchi (left anterior lung field) and Accessory Resp Muscle Use (negative)
GI: Soft, Non Distended, Non Tender and Normal Bowel Sounds
Neurology: Awake, Alert and Depressed
Skin: Warm, Dry and Bruising (negative)
Labs/Micro/Reports
Lab Data
02/12/24 03:46
02/12/24 03:46
Microbiology
02/08/24 01:42 Blood/Venous Blood Culture - Preliminary
No Growth in 4 days- Final report to follow
02/08/24 01:42 Blood/Venous Blood Culture - Preliminary
No Growth in 4 days- Final report to follow
--- NOTE | 2024-02-12 10:00 | PTCARENOTE ---
Incontinent of loose brown stool. CDiff negative. Pericare done. New purewick and attends applied. at bedside...plan of care discussed. Will continue to monitor.
[2024-02-12 10:56] LABS: Magnesium 1.7 mg/dl (1.6-2.3)
--- NOTE | 2024-02-12 12:15 | PTCARENOTE ---
No major changes in physical assessment since am. Remains on levophed gtt. Will continue to monitor closely.
--- NOTE | 2024-02-12 12:41 | W.PN.HOSP.TC ---
Today's Communication/Plan
-
Monitor vital signs see plan
Antibiotics
Midodrine increased
Wean pressors as tolerated
tube feeds
Monitor hemoglobin
Assessment / Plan
Assessment / Plan
A/P:� Patient is a 53y F with PMH significant for schizophrenia, cognitive impairment, chronic malnutrition and seizure disorder who presents to ED for evaluation of fever and hypotension.
# shock suspect Sepsis secondary to enterocolitis versus aspiration pneumonitis versus UTI
# Chronic dysphagia
Chest x-ray in ED shows no acute pulmonary process.
Repeat chest x-ray shows no significant focal parenchymal opacification
ID input appreciated. Consider palliative/hospice, narrow antibiotics to Unasyn
Vasopressin DC'd, increase midodrine to 15mg 3 times daily, continue Levophed,wean as tolerated
UA contaminated, no significant pyuria
Cultures negative thus far.
aspiration precautions
GI input appreciated. Patient agreeable to PEG tube placement.
TB spot pending
Acute respiratory failure with hypoxemia on oxygen
Monitor
Appears iatrogenic fluid overload secondary to fluids, now on Lasix
Anemia
Some dilutional but do suspect anemia of chronic disease
-Hemoglobin today 7.5
-Transfusion if hemoglobin drops below 7
-Trend hemoglobin, monitor CBC
#Hyponatremia
improving
#Hypokalemia
#Hypomagnesemia
#Hypocalcemia
-Replete
�
#Seizure Disorder
�- No evidence of recent / active seizures.
�- Continue AEDs without changes / interruption.
�- Monitor for any breakthrough seizure activity.
#Schizophrenia
Bipolar Disorder
Cognitive Impairment
�- Stable.� Continue risperidone and benztropine.
�- Hold SSRI acutely given hyponatremia.
�-Watch for adverse effects on psych meds
DVT Prophylaxis:�LMWH
Code Status:� Full
General: Appears Chronically Ill
HEENT: dobbhoff in place,anicteric
Respiratory: Negative Rales, Rhonchi or Crackles
Cardiac: Regular Rhythm and S1/S2
GI: Soft and Nontender
Musculoskeletal: No Edema
Neuro: Awake
Psych: Calm
I spent a total of 54 minutes with the patient or on the floor. More than 50% of this time involved counseling and coordination of care.
Anticipated Discharge: > 48 hours
Subjective/Interval History
-
Date of Service: February 12, 2024
Continues to be hypotensive
Objective Data
-
Labs:
Laboratory Results
02/12/24
03:46
WBC 11.5 H
Hgb 7.5 L
Hct 21.8 L
Plt Count 218
Sodium 136
Potassium 3.5
Chloride 99
Carbon Dioxide 29
BUN 10
Creatinine 0.4 L
Glucose 103 H
Calcium 7.2 L
Vital Signs:
Vital Signs
Temp Pulse Resp BP Pulse Ox
97.8 F 94 36 93/59 91
02/12/24 08:00 02/12/24 10:21 02/12/24 10:21 02/12/24 10:21 02/12/24 10:21
I&O
02/11/24 02/12/24 02/13/24
06:59 06:59 06:59
Intake Total 1859.0 / 1896.5 184.1 / 1904.1 675 / 675
Output Total 1200 / 1200
Balance 1859.0 / 1896.5 1840.1 / 1904.1 -525 / -525
--- NOTE | 2024-02-12 14:53 | CHAP ---
Ms. Grant was awake and looked at me intently. It was difficult to converse. I offered gentle words of comfort, and assured her of our loving care.
[2024-02-12 15:53] LABS: Blood Urea Nitrogen 11 mg/dl (7-17); Calcium 8.1 mg/dl (8.4-10.2); Carbon Dioxide 31 mmol/L (22-30); Chloride 97 mmol/L (98-107); Estimated Creatinine Clearance 65 ml/min; Glucose 121 mg/dl (70-99); Magnesium 1.6 mg/dl (1.6-2.3); Phosphorus 4.3 mg/dl (2.5-4.5); Potassium 3.5 mmol/L (3.5-5.1); Sodium 133 mmol/L (135-145); eGFR > 60.00
--- NOTE | 2024-02-12 16:00 | PTCARENOTE ---
Pt remains on 3L N/C...sats 98%. No major changes in physical assessment. Remains on levophed gtt....titrate to maintain MAP > 60. Repositioned q2h. Will continue to monitor.
--- NOTE | 2024-02-12 16:20 | PTCARENOTE ---
made aware of lab results. Orders rec'd.
[2024-02-12] MEDS: KCL ELIXIR 40 MEQ TUBE (17:11)
[2024-02-12] MEDS: MAGNESIUM OXIDE 500 MG TUBE (17:12)
[2024-02-13] VITALS (29 sets, daily range): BP systolic 71–103; BP diastolic 34–74; BMI 13.5
[2024-02-13] MEDS: UNASYN IV ×4 (02:50→21:17)
[2024-02-13] MEDS: LEVOPHED 250 IV ×2 (06:06→19:06)
[2024-02-13 06:15] LABS: Hematocrit 21.3 % (37.0-47.0); Hemoglobin 7.4 g/dL (12.0-16.0); Mean Corp Hgb Conc. 34.7 g/dL (33.0-37.0); Mean Corpuscular Hgb 32.2 pg (27.0-31.0); Mean Corpuscular Volume 92.6 fL (81.0-99.0); Mean Platelet Volume 10.3 fL (7.4-10.4); Platelet Count 227 10^3/uL (130-400); Red Cell Dist. Width 15.8 % (11.5-14.5); White Blood Cell Count 12.3 10^3/uL (4.8-10.8)
[2024-02-13 06:26] LABS: Blood Urea Nitrogen 15 mg/dl (7-17); Calcium 7.4 mg/dl (8.4-10.2); Carbon Dioxide 28 mmol/L (22-30); Chloride 100 mmol/L (98-107); Estimated Creatinine Clearance 65 ml/min; Glucose 82 mg/dl (70-99); Magnesium 1.7 mg/dl (1.6-2.3); Potassium 3.4 mmol/L (3.5-5.1); Sodium 131 mmol/L (135-145); eGFR > 60.00
[2024-02-13] MEDS: KCL 270 MEQ IV (07:48)
[2024-02-13] MEDS: MAGNESIUM SULFATE 102 GRAMS IV (07:50)
[2024-02-13] MEDS: PROTONIX IV 40 MG IV ×2 (07:54→20:28)
[2024-02-13] MEDS: NSS (PRESERVATIVE FREE) 10 ML IV ×2 (07:54→20:28)
[2024-02-13] MEDS: ProAmatine 15 MG TUBE ×3 (07:57→18:01)
[2024-02-13] MEDS: PROZAC 20 MG TUBE ×2 (07:57→20:29)
[2024-02-13] MEDS: DEPAKENE 250 MG TUBE ×3 (07:57→21:49)
[2024-02-13] MEDS: ROBITUSSIN 400 MG TUBE ×4 (07:58→21:49)
[2024-02-13] MEDS: VITAMIN B1 100 MG PO (07:59)
[2024-02-13] MEDS: COGENTIN 0.5 MG TUBE ×3 (07:59→21:49)
[2024-02-13] MEDS: LASIX 40 MG IV ×2 (07:59→20:28)
[2024-02-13] MEDS: LOW STRENGTH ASPIRIN 81 MG PO (07:59)
[2024-02-13] MEDS: RISPERDAL 1 MG TUBE (07:59)
[2024-02-13] MEDS: THERAGRAN 1 TABLET TUBE (07:59)
--- NOTE | 2024-02-13 08:00 | PTCARENOTE ---
Assumed care of patient. Pt rec'd sleeping but easily arousable. Oriented to self. Soft voice....able to let needs be known. LE's contracted. Able to use upper extremities. S1 S2 reg w/ NSR on monitor. Weak PP. Trace LLE. Knee hi SCD's on.
On 2L N/C...sats 93-100%. Lungs diminished w/ scattered crackles posteriorly...anteriorly clear. Moist NPC. Oral care done. Abdomen flat...+BS. (R) nare dhf w/ osmo @ 10ml/hr w/ 25ml/hr. Purewick on...incontinent for yellow colored urine.
Pericare done. Incontinent of loose brown stool. Calazime applied to periarea. Skin pale in color. Multiple dressings covering marilin prominences. Sacrum red but blancable...MASD noted. Right DL PICC w/ levophed gtt infusing...see intervention.
VS documented. Will continue to monitor closely.
--- NOTE | 2024-02-13 08:16 | W.PN.ID1 ---
Date of Service
Date of Service: February 13, 2024
Today's Communication
Continue Zosyn for today
Assessment / Plan
Hypotension
Fever
- improved
Leukocytosis
- low-grade
- covid ag neg, influenza neg
- Cultures negative thus far
Continue with Unasyn (d#5)
- follow clinically
Profound Cachexia
- 40 kg weight loss since 2012; 8-10 kg weight loss in the last year
- Likely secondary to protein calorie malnutrition
- T-spot TB test negative.
Overall prognosis guarded
����������������������������������������������������������
Chief Complaint
-: Pneumonia
Vital Signs / Physical Exam
Vital Signs
Vital Signs
Temp Pulse Resp BP Pulse Ox
98.1 F 79 26 93/44 96
02/13/24 07:42 02/13/24 07:59 02/13/24 03:43 02/13/24 07:59 02/13/24 04:42
Physical Exam
Physical Exam:
Constitutional: Chronically Ill and extremely cachectic in appearance.
Eyes: Sclera Anicteric
Cardiovascular: S1/S2; Negative S3/S4
Pulmonary: Coarse (Throughout) and Non Labored. No overt rhonchi.
Gastrointestinal: Soft, Distended, Normal Bowel Sounds, No Rebound and No Guarding
Skin: Negative Jaundice
Neurological: Resting comfortably; easily arousable.
Psychological: Calm
Objective Data
Lab Data
Lab Results
02/13/24 06:00
02/13/24 06:00
PT 17.3 Sec (11.4-14.6) H 02/08/24 10:48
INR 1.44 02/08/24 10:48
APTT 37.6 Sec (23.4-35.0) H 02/08/24 10:48
Estimated Creat Clear 65 ml/min 02/13/24 06:00
Lactic Acid Cancelled 02/08/24 05:15
Total Bilirubin 0.6 mg/dl (0.2-1.3) 02/11/24 04:49
AST 27 U/L (14-36) 02/11/24 04:49
ALT 13 U/L (0-35) 02/11/24 04:49
Alkaline Phosphatase 66 U/L (38-126) 02/11/24 04:49
Most recent labs reviewed.
Micro Results:
02/08/24 01:42 Blood Culture - Final
Blood/Venous No Growth - Final Report
02/08/24 01:42 Blood Culture - Final
Blood/Venous No Growth - Final Report
02/08/24 02:46 Urine Culture - Final
Urine
02/08/24 17:50 Legionella Urinary Antigen - Final
Urine Negative for Legionella pneumophila Serogroup 1 antigen.
A negative result does not rule out the possiblity of
Legionella infection due to other serogroups or species of
Legionella. Clinical correlation is recommended.
Streptococcus pneumoniae Antigen (M - Final
Negative for Streptococcus pneumoniae antigen.
A negative result does not exclude infection with
Streptococcus pneumoniae. Clinical correlation is
recommended.
02/08/24 08:13 Nasal Screen MRSA (PCR) - Final
Nose MRSA not detected - performed by PCR methodology.
02/08/24 01:27 Influenza Types A & B (LANA) - Final
Nasal Swab Negative for Influenza A & B, NAAT
Negative results must be combined with clinical observations
and patient history.
Nucleic Acid Amplification test (NAAT)performed on the
[employer] platform.
Imaging:
02/10/2024 CXR (portable): Study limited secondary to rotation to the right. Slightly prominent pulmonary interstitial markings which could represent interstitial pneumonitis or edema.
--- NOTE | 2024-02-13 08:56 | W.PN.INTV ---
Today's Communication / Plan
Recommendations
Continue levo
Continue midodrine 15mg TID
Add florinef
Tube feeds and raise rate as tolerated; monitor K, Mg and PO4
Continue PPI and monitor Hb with transfusion if needed to keep Hb>7 and plt>50k
Continue diuresis with 40mg IV BID given worsening volume overload on yesterday's CXR --> she is now finally net negative and her O2 requirements have improved!
GI consulted --> pt will need PEG. Will get EGD and hopefully flex-sig all at once
Aspiration precautions and continue sport bed
Abx as per ID
Assessment
-
Assessment: 53-year-old F with PMHx of chronic hypotension on midodrine seizures, developmental delay, schizophrenia, bipolar disorder and history of UTI who p/w hypotension from her NH ([facility]) and fever to 103F. Patient is poor historian
and unable to obtain accurate HPI as she mumbles when speaks with incoherent speech. Patient was recently in November of this year for aspiration ammonia with septic shock. PEG tube was discussed at that time however this was not done. Patient had
thrombocytopenia as well during that time which precluded prompt placement at that time. In the ER she was febrile to 100.7 �F, pulse rate 92, breathing at 19 breaths/min, hypotensive to 92/60 and saturating 98% on room air. Pt given tylenol FLOOR STEWARD/STEWARDESS.
Pt had a wet cough that was reported. Labs showed WBC 8.1, Hb 10.7, platelets 241, sodium 126, chloride 92, glucose 63, calcium 6.9 and albumin level 1.9. Cortisol was checked given concern for possible adrenal insufficiency and her level was 120.
UA showed moderate urine bacteria with 11�15 urine WBC and trace leukocyte esterase. Her COVID antigen is negative. CXR showed no acute cardiopulmonary process, and CT abdomen/pelvis showed diffuse colonic and small bowel wall thickening which
could represent enterocolitis with no intestinal obstruction or free air seen. Patient given calcium gluconate, D50, and 2L of IVF with NS 0.9%. Due to concern for aspiration and sepsis with hypotension, she was TRX to ICU for further care.
Chronic medical conditions FLOOR STEWARD/STEWARDESS:Hypercholesterolemia, seizures, developmental delay, schizophrenia, bipolar disorder, chronic ambulatory dysfunction (wheelchair-bound), chronic hypotension on midodrine, scoliosis, history of UTI, anxiety, bipolar
disorder, history of dysphagia
Impression:
#Shock - suspected sepsis due to enterocolitis vs aspiration vs UTI in setting of hypoalbuminemia
#Abnormal CT Abd/Pelvis with diffuse colonic and small bowel wall thickening suspicious for enterocolitis
#Acute respiratory failure with hypoxemia on supplemental oxygen
#Acute on chronic anemia due to blood loss now with 'pink' stool concerning for GI bleed - DDx includes brisk UGIB vs LGIB (baseline Hb: 10-12g/dL)
#Hx of thrombocytopenia
#Hypoglycemia
#Hypochloremic, hyponatremia - likely due to reduced PO intake (this is further supported by pt's hypoglycemia in setting of normal random cortisol)
#Hypomagnesemia and hypophosphatemia likely due to refeeding syndrome
#Hypoalbuminemia likely due to malnutrition
#Abnormal urinalysis suspicious for UTI
#Developmental delay with Hx of dementia
#Chronic hypotension on midodrine as an outpatient
Plan:
- Continue Abx --> remains on Unasyn after being on Zosyn since 02/08/2024 - she will need total of 10-14 days of ABx
- ID on board --> recs appreciated
- Continue vasopressors with levophed with goal MAP>65
- Considering she is septic and unable to be weaned off of Levophed despite being on midodrine, I will add Cinthya
- Follow up infectious workup with sputum Cx, urine Cx and blood Cx X2 - all Cx show NGTD
- Her urine antigens for legionella and Strep PNA are both negative
- Maintain euglycemia with goal BG 140-180
- Continue tube feeds and advance to goal as tolerated- replete K>4, Mg>2, PO4>3 and trend labs q12hr - daily
- Continue midodrine 15mg TID (raised from 10mg TID on 02/10) in attempt to wean off vasopressors
- Given that her serum Na is low and her urine Na is low, I administered an additional 1L bolus of NS 0.9% on 02/08 --> unfortunately on 02/09 she appeared more hypoxic and CXR shows e/o volume overload--> no additional IVF at this time and diurese
--> CXR today (02/11) shows worsening interstitial thickening concerning for volume overload. I raised Lasix on 02/11 to 40mg IV BID as she is still not net negative, and she is finally net negative and her O2 requirements are improving.
- Will need PEG given concern for chronic aspiration; otherwise continue diet as per BOOM TRUCK DRIVER; GI on board --> given her hematochezia with acute on chronic anemia, she will need endoscopy. Plan for EGD during PEG and if persistent bloody stool then will
get flex-sig during EGD
- Serial Hb and transfuse if needed to keep Hb>7, plt>50k
- Continue PPI 40mg IV q12hr
- Continue home PO meds
- Administer supplemental albumin with goal serum albumin level >3g/dL
- Avoid narcotics or other sedating medications
- Replete K>4, Mg>2
- Aspiration precautions
- SW consult given pt is from [place]
- stress ulcer ppx: continue PPI IV BID
- DVT ppx: SCDs; hold chemical ppx for now given acute gi bleed
Critical care statement: A total of 37 minutes of critical care time was provided for this patient today. This includes management of unstable vital signs, evaluation of the patient at bedside, reviewing the patient's pertinent medical records
including radiographs, microbiology, laboratory evaluations, and discussion with primary team, consultants, pharmacy, nutrition, physical therapy, case management, charge nurse, critical care nursing, and respiratory therapy.
Data:
CT A/P with IV contrast 02-08-2024: MARKEDLY LIMITED STUDY DUE TO NUMEROUS FACTORS.
Gross findings suggesting some diffuse colonic and some small bowel wall thickening which could represent enterocolitis. No intestinal obstruction or free air.
CXR 02-08-2024: No acute cardiopulmonary process.
CXR 02-10-2024:
Somewhat limited study with patient rotated to the right.
Slightly prominent pulmonary interstitial markings bilaterally. Findings could represent interstitial pneumonitis or edema.
No pneumothorax.
Likely small right pleural effusion.
CXR 02-12-2024:
Patient remains rotated to the right. Right PICC line catheter and nasogastric tube remain in place.
Slightly increased hazy opacity at the right lung base, likely progressive pleural effusion.
Progressive interstitial thickening is demonstrated throughout the left hemithorax. Asymmetric interstitial edema versus interstitial infectious or inflammatory changes/pneumonitis. No focal dense consolidation.
Subjective Dataa
Subjective Data
Date of Service:
Date of Service: February 13, 2024
Chief Complaint: Arson And Bomb Investigator Follow Up
Subjective:
Patient seen this morning. She had no acute events reported overnight. Remains on Levophed at 5mcg/min, with BP 79/52. Heart rate 95 she is saturating 100% on 2 L/min nasal cannula. She is net -746 cc over the last 24 hours. She still remains
cumulatively net +8 L since admission.
Review of Systems
General: Other (Unable to obtain due to patient's clinical status)
Objective Data
Data Reviewed
Vital Signs / I&O / Oxygen:
Vital Signs
Temp Pulse Resp BP Pulse Ox
98.1 F 79 26 93/44 96
02/13/24 07:42 02/13/24 07:59 02/13/24 03:43 02/13/24 07:59 02/13/24 04:42
Intake and Output
02/12/24 02/13/24 02/14/24
06:59 06:59 06:59
Intake Total 1840.1 / 1905.1 1703.9 / 1703.9
Output Total 2450 / 2450
Balance 1840.1 / 1905.1 -746.1 / -746.1
SaO2 96
Nasal Cannula flow liters per 2
minute
Physical Exam
General: Comfortable and Sweats (negative)
HEENT: Normocephalic and Anicteric
Cardiovascular: S1-S2 and Peripheral Edema (negative)
Respiratory: Clear (Anterior lung coronado are clear to auscultation bilaterally), Wheeze (negative), Crackles (Bibasilar heard in posterior lung coronado), Rhonchi (Kaufman in the left posterior base) and Accessory Resp Muscle Use (negative)
GI: Soft, Non Distended, Non Tender and Normal Bowel Sounds
Neurology: Awake, Alert and Depressed
Skin: Warm, Dry and Bruising (negative)
Labs/Micro/Reports
Lab Data
02/13/24 06:00
02/13/24 06:00
Microbiology
02/08/24 01:42 Blood/Venous Blood Culture - Final
No Growth - Final Report
02/08/24 01:42 Blood/Venous Blood Culture - Final
No Growth - Final Report
[2024-02-13] MEDS: FLORINEF 0.0500000000000000028 MG TUBE (11:57)
--- NOTE | 2024-02-13 12:15 | PTCARENOTE ---
No major changes in physical assessment since am. Remains on levophed gtt. Spoke w/ GI ...probably wednesday for peg.
--- NOTE | 2024-02-13 12:30 | PTCARENOTE ---
Arti Willis (pt's guardian) called in reference to possible peg tmr. She will be unavailable from [id number] tmr...she just wanted that passed -along. [phone]; cell [phone]
--- NOTE | 2024-02-13 12:45 | W.PN.HOSP.TC ---
Today's Communication/Plan
-
Monitor vital signs see plan
Now on 2 L
Agree with Florinef
Wean pressors as tolerated
PEG tube likely next week
replete K
Assessment / Plan
Assessment / Plan
A/P:� Patient is a 53y F with PMH significant for schizophrenia, cognitive impairment, chronic malnutrition and seizure disorder who presents to ED for evaluation of fever and hypotension.
# shock suspect Sepsis secondary to enterocolitis versus aspiration pneumonitis versus UTI
# Chronic dysphagia
Chest x-ray in ED shows no acute pulmonary process.
Repeat chest x-ray shows no significant focal parenchymal opacification
ID input appreciated. Consider palliative/hospice, narrow antibiotics to Unasyn
Vasopressin DC'd, increase midodrine to 15mg 3 times daily, continue Levophed,wean as tolerated. Discussed with ROCK LATHER, residential property tax appraiser also agrees. Will start on flornef
UA contaminated, no significant pyuria
Cultures negative thus far.
aspiration precautions
GI input appreciated. Patient agreeable to PEG tube placement.
TB spot neg
Acute respiratory failure with hypoxemia on oxygen
Monitor
Appears iatrogenic fluid overload secondary to fluids, now on Lasix
Anemia
Some dilutional but do suspect anemia of chronic disease
-Hemoglobin today 7.4
-Transfusion if hemoglobin drops below 7
-Trend hemoglobin, monitor CBC
#Hyponatremia
Monitor
#Hypokalemia
#Hypomagnesemia
#Hypocalcemia
-Replete
�
#Seizure Disorder
�- No evidence of recent / active seizures.
�- Continue AEDs without changes / interruption.
�- Monitor for any breakthrough seizure activity.
#Schizophrenia
Bipolar Disorder
Cognitive Impairment
�- Stable.� Continue risperidone and benztropine.
�- Hold SSRI acutely given hyponatremia.
�-Watch for adverse effects on psych meds
DVT Prophylaxis:�LMWH
Code Status:� Full
General: Appears Chronically Ill
HEENT: dobbhoff in place,anicteric
Respiratory: Negative Rales, Rhonchi or Crackles
Cardiac: Regular Rhythm and S1/S2
GI: Soft and Nontender
Musculoskeletal: No Edema
Neuro: Awake
Psych: Calm
I spent a total of 52 minutes with the patient or on the floor. More than 50% of this time involved counseling and coordination of care.
Anticipated Discharge: > 48 hours
Subjective/Interval History
-
Date of Service: February 13, 2024
Denies pain
Objective Data
-
Labs:
Laboratory Results
02/13/24
06:00
WBC 12.3 H
Hgb 7.4 L
Hct 21.3 L
Plt Count 227
Sodium 131 L
Potassium 3.4 L
Chloride 100
Carbon Dioxide 28
BUN 15
Creatinine 0.5 L
Glucose 82
Calcium 7.4 L
Vital Signs:
Vital Signs
Temp Pulse Resp BP Pulse Ox
98 F 90 28 83/41 100
02/13/24 11:25 02/13/24 12:29 02/13/24 11:00 02/13/24 12:29 02/13/24 10:00
I&O
02/12/24 02/13/24 02/14/24
06:59 06:59 06:59
Intake Total 1840.1 / 1904.1 1703.9 / 1757.7 447.8 / 447.8
Output Total 2450 / 2450 850 / 850
Balance 1840.1 / 1905.1 -746.1 / -692.3 -402.2 / -402.2
--- NOTE | 2024-02-13 16:00 | PTCARENOTE ---
Small nose bleed noted. Area cleansed w/ washclothes and nose bleed stopped on its own. Issues w/ low BP. Remains on levophed gtt. Pediatric BP cuff applied. TF bag changed. Will continue to monitor.
--- NOTE | 2024-02-13 20:55 | PTCARENOTE ---
Pt received at 19:00. Oriented to self, soft and confused speech. SR, trace LE edema. Remains on levophed to keep MAP >60. 2L NC, pulse ox 98%, breath sounds diminished/coarse t/o. DHT in place, infusing osmolilte @ 10ml/hr w/ 25ml c1protm. Purewick
in place, dani urine. Safe environment maintained, call castellanos within reach, pt repositioned.
[2024-02-14] VITALS (96 sets, daily range): BP systolic 56–136; BP diastolic 41–95; BMI 12.9
[2024-02-14] MEDS: UNASYN IV ×2 (01:15→09:04)
--- NOTE | 2024-02-14 02:39 | PTCARENOTE ---
Pt with increased levophed requirements, now on 8mcg/min with MAP in low 60s. Otherwise assessment unchanged.
[2024-02-14 04:27] LABS: Hematocrit 21.2 % (37.0-47.0); Hemoglobin 7.6 g/dL (12.0-16.0); Mean Corp Hgb Conc. 35.8 g/dL (33.0-37.0); Mean Corpuscular Hgb 32.8 pg (27.0-31.0); Mean Corpuscular Volume 91.4 fL (81.0-99.0); Mean Platelet Volume 10.2 fL (7.4-10.4); Platelet Count 274 10^3/uL (130-400); Red Blood Cell Count 2.32 10^6/uL (4.20-5.40); Red Cell Dist. Width 15.4 % (11.5-14.5); White Blood Cell Count 17.1 10^3/uL (4.8-10.8)
[2024-02-14 04:54] LABS: Albumin 2.1 g/dl (3.5-5.0); Blood Urea Nitrogen 19 mg/dl (7-17); Carbon Dioxide 31 mmol/L (22-30); Chloride 94 mmol/L (98-107); Estimated Creatinine Clearance 66 ml/min; Glucose 90 mg/dl (70-99); Magnesium 1.9 mg/dl (1.6-2.3); Phosphorus 4.1 mg/dl (2.5-4.5); Potassium 2.6 mmol/L (3.5-5.1); Sodium 132 mmol/L (135-145); eGFR > 60.00
[2024-02-14] MEDS: KCL ELIXIR 40 MEQ TUBE (05:07)
[2024-02-14] MEDS: KCL 50 IV (05:20)
[2024-02-14] MEDS: LEVOPHED 250 IV ×2 (05:20→11:55)
--- NOTE | 2024-02-14 05:21 | PTCARENOTE ---
K = 2.6, KCl given via DHT and IVPB as ordered.
[2024-02-14] MEDS: MAGNESIUM SULFATE 102 GRAMS IV (05:43)
--- NOTE | 2024-02-14 07:16 | W.PN.INTV ---
Today's Communication / Plan
Recommendations
Stop abx and observe off, ID following
Wean pressors as able, if not may need to add vasopressin
Stop steriods
PT/OT as able
TFs per dietary/refeeding labs/replete if needed
PEG tube per GI
GOC discussions per team
Assessment
-
53-year-old F with PMHx of chronic hypotension on midodrine seizures, developmental delay, schizophrenia, bipolar disorder and history of UTI who p/w hypotension from her NH ([facility]) and fever to 103F. Patient is poor historian and unable
to obtain accurate HPI as she mumbles when speaks with incoherent speech. Patient was recently in November of this year for aspiration PNA with septic shock. PEG tube was discussed at that time however this was not done. Patient had
thrombocytopenia as well during that time which precluded prompt placement at that time. In the ER she was febrile to 100.7 �F, pulse rate 92, breathing at 19 breaths/min, hypotensive to 92/60 and saturating 98% on room air. Pt given tylenol GASTROENTEROLOGY PROFESSOR.
Pt had a wet cough that was reported. Labs showed WBC 8.1, Hb 10.7, platelets 241, sodium 126, chloride 92, glucose 63, calcium 6.9 and albumin level 1.9. Cortisol was checked given concern for possible adrenal insufficiency and her level was 120.
UA showed moderate urine bacteria with 11�15 urine WBC and trace leukocyte esterase. Her COVID antigen is negative. CXR showed no acute cardiopulmonary process, and CT abdomen/pelvis showed diffuse colonic and small bowel wall thickening which
could represent enterocolitis with no intestinal obstruction or free air seen. Patient given calcium gluconate, D50, and 2L of IVF with NS 0.9%. Due to concern for aspiration and sepsis with hypotension, she was TRX to ICU for further care.
Impression:
#Shock - suspected sepsis due to enterocolitis vs aspiration vs UTI in setting of hypoalbuminemia
#Abnormal CT Abd/Pelvis with diffuse colonic and small bowel wall thickening suspicious for enterocolitis
#Acute respiratory failure with hypoxemia on supplemental oxygen
#Acute on chronic anemia due to blood loss now with 'pink' stool concerning for GI bleed - DDx includes brisk UGIB vs LGIB (baseline Hb: 10-12g/dL)
#Hx of thrombocytopenia
#Hypoglycemia
#Hypochloremic, hyponatremia - likely due to reduced PO intake (this is further supported by pt's hypoglycemia in setting of normal random cortisol)
#Hypomagnesemia and hypophosphatemia likely due to refeeding syndrome
#Hypoalbuminemia likely due to malnutrition
#Abnormal urinalysis suspicious for UTI
#Developmental delay with Hx of dementia
#Chronic hypotension on midodrine as an outpatient
Chronic medical conditions GASTROENTEROLOGY PROFESSOR:
Hypercholesterolemia
seizures
developmental delay
schizophrenia
bipolar disorder
chronic ambulatory dysfunction (wheelchair-bound)
chronic hypotension on midodrine
scoliosis
history of UTI
anxiety
bipolar disorder
history of dysphagia
Plan:
Not currently on sedation
Denies pain, can assess as needed
MS at baseline poor/can follow simple commands
Rass goal of 0
Remains on pressors/midodrine max doses-levo @12, increasing
Continue vasopressors with levophed with goal MAP>65
Florinef tried for 24 hours but no impact on BP, will stop now
Continue midodrine 15mg TID (raised from 10mg TID on 02/10) in attempt to wean off vasopressors
Add vasopressor if needed
Consider A line if cuff not accurate
Lasix given, can stop given her hypotension and assess as needed
Remains on 2L NC, not significantly hypoxemic
CXR showing no acute findings/congestion suggesting volume overload
proBNP 3600, limit IVFs/gtts
Aspiration precautions
NPO, DHT in place
PEG tube has been considered/she is under guardianship per [place] state
Given her hematochezia with acute on chronic anemia, she will need endoscopy.
Plan for EGD during PEG and if persistent bloody stool then will get flex-sig during EGD
Refeeding syndrome likely
TF reduced to trickle rate
Butadiene Converter Helper following, repeat labs/replete electrolytes as indicated
Stress ulcer ppx: continue PPI IV BID
Completed Abx --> remains on Unasyn after being on Zosyn since 02/08/2024/completed 6 days
ID on board --> recs appreciated
WBC noted, but no fever, culture negative:
Workup with sputum Cx, urine Cx and blood Cx X2 - all Cx show NGTD
Her urine antigens for legionella and Strep PNA are both negative
Observe off abx for now
Follow urine output, lasix as needed
I/Os, may autodiuresis without need for treatment
Follow daily weights
AM cortisol obtained >120, adequate response
No adrenal insufficiency based on this result
Stop steroids
TSH WNL
Maintain euglycemia with goal BG 140-180
Follow CBC, INR 1.44
Serial Hb and transfuse if needed to keep Hb>7, plt>50k
DVT ppx: SCDs; hold chemical ppx for now given acute gi bleed
Difficult situation given her care is directed by the [facility], needs GO discussions.
Diagnostic Data
CT A/P with IV contrast 02-08-2024: MARKEDLY LIMITED STUDY DUE TO NUMEROUS FACTORS.
Gross findings suggesting some diffuse colonic and some small bowel wall thickening which could represent enterocolitis. No intestinal obstruction or free air.
CXR 02-08-2024: No acute cardiopulmonary process.
CXR 02-10-2024: Somewhat limited study with patient rotated to the right. Slightly prominent pulmonary interstitial markings bilaterally. Findings could represent interstitial pneumonitis or edema.
No pneumothorax. Likely small right pleural effusion.
CXR 02-12-2024: Patient remains rotated to the right. Right PICC line catheter and nasogastric tube remain in place. Slightly increased hazy opacity at the right lung base, likely progressive pleural effusion. Progressive interstitial thickening is
demonstrated throughout the left hemithorax. Asymmetric interstitial edema versus interstitial infectious or inflammatory changes/pneumonitis. No focal dense consolidation.
-----
Critical Care time 40 mins -- The patient is admitted for acute critical illness for the treatment of vital organ failure and/or prevention of further life-threatening conditions. Total care includes time spent in review of history, physical exam,
medications, hemodynamic/ventilator parameters, laboratory data, imaging and discussion with house staff, pharmacy, respiratory therapy, critical power install technician, and nursing.
Subjective Dataa
Subjective Data
Date of Service:
Date of Service: February 14, 2024
Chief Complaint: Waste Picker Follow Up
Subjective:
no acute events ON
remains hypotensive despite pressors/midodrine max dose
lethargic, but able to follow commands
TFs ongoing, reduced to trickle rate
Objective Data
Data Reviewed
Vital Signs / I&O / Oxygen:
Vital Signs
Temp Pulse Resp BP Pulse Ox
99.1 F 94 30 83/53 99
02/14/24 03:12 02/14/24 05:30 02/14/24 05:30 02/14/24 05:30 02/14/24 05:30
Intake and Output
02/13/24 02/14/24 02/15/24
06:59 06:59 06:59
Intake Total 1703.9 / 1757.7 1530.8 / 1530.8
Output Total 2450 / 2450 2250 / 2250
Balance -746.1 / -692.3 -719.2 / -719.2
SaO2 99
Nasal Cannula flow liters per 2
minute
Physical Exam
General: Comfortable and Sweats (negative)
HEENT: Normocephalic, Anicteric and Moist Mucous Membranes
Cardiovascular: S1-S2 and Peripheral Edema (negative)
Respiratory: Clear (Anterior lung coronado are clear to auscultation bilaterally), Wheeze (negative), Crackles (Bibasilar heard in posterior lung coronado), Rhonchi ([place]man in the left posterior base) and Accessory Resp Muscle Use (negative)
GI: Soft, Non Distended, Non Tender, Normal Bowel Sounds and NG Tube
Neurology: Awake, Alert, Depressed and Other (can nod head and follow simple commands, not extremely conversive)
Skin: Warm, Dry and Bruising (negative)
Labs/Micro/Reports
Lab Data
02/14/24 04:16
Microbiology
02/08/24 01:42 Blood/Venous Blood Culture - Final
No Growth - Final Report
02/08/24 01:42 Blood/Venous Blood Culture - Final
No Growth - Final Report
--- NOTE | 2024-02-14 08:30 | PTCARENOTE ---
Received pt @ change of shift. Awake/ox1; required reorientation to time/place; confused/forgetful. Soft voice quality w slow/garbled speech. Weak cough/gag. SpO2 96% on RA. SR on monitor. Levo gtt titrated to keep MAP >60 per orders-see flow
sheet. R piter dobhoff secured @ 55cm w TF, osmo 1.2 @ 10mL/hr w 25mL H20 flush. Inc b/b. Purewick in place w dani urine. R DL PICC w levo gtt and KVO w electrolyte replacement- see MAR. Pt. repositioned per protocol. Unable to make needs known,
hourly rounds and safe environment maintained.
[2024-02-14] MEDS: DEPAKENE 250 MG TUBE ×3 (08:37→22:12)
[2024-02-14] MEDS: ROBITUSSIN 400 MG TUBE ×4 (08:37→22:12)
[2024-02-14] MEDS: ProAmatine 15 MG TUBE ×3 (08:37→17:51)
[2024-02-14] MEDS: THERAGRAN 1 TABLET TUBE (08:38)
[2024-02-14] MEDS: PROZAC 20 MG TUBE ×2 (08:38→22:12)
[2024-02-14] MEDS: FLORINEF 0.0500000000000000028 MG TUBE (08:38)
[2024-02-14] MEDS: RISPERDAL 1 MG TUBE (08:38)
[2024-02-14] MEDS: LOW STRENGTH ASPIRIN 81 MG PO (08:38)
[2024-02-14] MEDS: VITAMIN B1 100 MG PO (08:38)
[2024-02-14] MEDS: COGENTIN 0.5 MG TUBE ×3 (08:38→22:12)
[2024-02-14] MEDS: PROTONIX IV 40 MG IV (08:49)
[2024-02-14] MEDS: NSS (PRESERVATIVE FREE) 10 ML IV (08:50)
[2024-02-14 10:02] LABS: NT-proBNP 3600 pg/ml
[2024-02-14 10:15] LABS: Venous Blood Gas B.E. 3.3 mmol/L (-4 to +4); Venous Blood Gas HCO3 27.8 mmol/L (22-27); Venous Blood Gas pCO2 41 mmHg (35-48); Venous Blood Gas pH 7.44 (7.32-7.43); Venous Blood Gas pO2 165 mmHg (30-50)
[2024-02-14 10:17] LABS: Venous Blood Gas O2 Therapy RA
[2024-02-14] MEDS: LASIX IV (10:32)
--- NOTE | 2024-02-14 10:34 | W.PN.ID1 ---
Date of Service
Date of Service: February 14, 2024
Today's Communication
DC Unasyn (d8 abx) and observe.
Assessment / Plan
Hypotension
Fever - resolved
Leukocytosis - trended up. Last BM 02/09.
Aspiration pneumonia
- Completed 7 days abx.
DC Unasyn (d8 abx) and observe.
-Aspiration precaution
-Follow wbc
Profound Cachexia
- 40 kg weight loss since 2012; 8-10 kg weight loss in the last year
- Likely secondary to protein calorie malnutrition
- T-spot TB test negative.
-HIV negative
Overall prognosis guarded
����������������������������������������������������������
Chief Complaint
-: Pneumonia
Vital Signs / Physical Exam
Vital Signs
Vital Signs
Temp Pulse Resp BP Pulse Ox
98.7 F 79 25 82/50 96
02/14/24 07:53 02/14/24 09:15 02/14/24 09:15 02/14/24 09:15 02/14/24 09:20
Physical Exam
Constitutional: Chronically Ill
Cardiovascular: Regular Rate and S1/S2
Pulmonary: Other (decreased BS at bases)
Gastrointestinal: Soft, Non Tender and Non Distended
Extremities: Edema (2+ BLE)
Objective Data
Lab Data
Lab Results
02/14/24 04:16
PT 17.3 Sec (11.4-14.6) H 02/08/24 10:48
INR 1.44 02/08/24 10:48
APTT 37.6 Sec (23.4-35.0) H 02/08/24 10:48
Estimated Creat Clear 66 ml/min 02/14/24 04:16
Lactic Acid Cancelled 02/08/24 05:15
Total Bilirubin 0.6 mg/dl (0.2-1.3) 02/11/24 04:49
AST 27 U/L (14-36) 02/11/24 04:49
ALT 13 U/L (0-35) 02/11/24 04:49
Alkaline Phosphatase 66 U/L (38-126) 02/11/24 04:49
Most recent labs reviewed.
Micro Results:
02/08/24 01:42 Blood Culture - Final
Blood/Venous No Growth - Final Report
02/08/24 01:42 Blood Culture - Final
Blood/Venous No Growth - Final Report
02/08/24 02:46 Urine Culture - Final
Urine
02/08/24 17:50 Legionella Urinary Antigen - Final
Urine Negative for Legionella pneumophila Serogroup 1 antigen.
A negative result does not rule out the possiblity of
Legionella infection due to other serogroups or species of
Legionella. Clinical correlation is recommended.
Streptococcus pneumoniae Antigen (M - Final
Negative for Streptococcus pneumoniae antigen.
A negative result does not exclude infection with
Streptococcus pneumoniae. Clinical correlation is
recommended.
02/08/24 08:13 Nasal Screen MRSA (PCR) - Final
Nose MRSA not detected - performed by PCR methodology.
02/08/24 01:27 Influenza Types A & B (LANA) - Final
Nasal Swab Negative for Influenza A & B, NAAT
Negative results must be combined with clinical observations
and patient history.
Nucleic Acid Amplification test (NAAT)performed on the
[employer] platform.
Imaging:
02/10/2024 CXR (portable): Study limited secondary to rotation to the right. Slightly prominent pulmonary interstitial markings which could represent interstitial pneumonitis or edema.
Care Review
Plan reviewed with: Physician (Dr. Katharine Giordano)
--- NOTE | 2024-02-14 11:06 | CM ---
Patient seen at bedside. Patient is a LTC at [facility] and currently in ICU with pressors. Patient has a legal guardian. CM called to [facility] to provide update. CM will continue to follow for discharge planning needs.
Plan; TBD; LTC at [facility]; no auth required to return.
--- NOTE | 2024-02-14 11:06 | W.PN.HOSP.TC ---
Addendum entered and electronically signed by Issa Kelley MD 02/14/24 21:47:
Attending Addendum-
I saw and evaluated the patient. I reviewed the resident�s note and agree with findings and plan as documented in the resident�s note. patient barely audible or comprehensible. Full 12 point ROS reviewed and negative except as documented Exam: Gen
frail cachectic appearing HEENT- dobhoff in place heart RRR lungs crackles at bases b/l abd soft NT LE trace b/l LE edema, PICC in place RUE- Plan:
# Hypovolemic Shock- levophed uptitrated, vasopressin may need to be restarted, increase midodrine further, florinef dc'd, maintain MAP > 65, monitor closely in ICU DC abx cont to monitor--poor prognosis
# Acute Hypoxemic Respiratory Failure- volume overload and likely aspiration- s/p lasix wean o2 as tolerated aspirattion precautions
# Aspiration PNA- completed unasyn per ID, cont NPO trickle dobhoff feeds, for possible PEG when more stable, poor prognosis
# Dysphagia and Severe PCM- cont feeds, appreciate GI input-for PEG placement when hemodynamically stable, will not prevent aspiration- poor overall prog t/c ethics eval call legal guardian
# Leukocytosis- unclear source, possible repeat aspiration, law culture check bloox cx x 2 and one from central line, repeat CXR cont to hold abx for now, ID on board
# Acute Anemia- likely dilutional and secondary to nutritional deficiency- cont to monitor hold transfusion until <7.
# Severe Electrolyte Imbalance- likely refeeding syndrome- hypo- K, NA - replete- cont to monitor closely repeat labs BID, cont DHT trickle feeds
# Seizure D/O- cont meds
# Psych- Bipolar Schizoaffective- cont meds t/c c/s psych for eval /medication review
Dispo continue ICU level of care, poor overall prognosis
Time spent coordinating care, review of plan of care with resident, review of records, med rec, consults, notes, labs, rads, d/w nursing, ICU� 65 mins
Original Note:
Today's Communication/Plan
-
see a/p
Blood cultures x 2. 1 set from central line
Check lactate
Urinalysis
Repeat chest x-ray
Assessment / Plan
Assessment / Plan
A/P:� Patient is a 53y F with PMH significant for schizophrenia, cognitive impairment, chronic malnutrition and seizure disorder who presents to ED for evaluation of fever and hypotension.
# Hypovolemic shock suspect Sepsis secondary to enterocolitis versus aspiration pneumonitis
# Chronic dysphagia
Chest x-ray in ED shows no acute pulmonary process.
chest x-ray 02/09 shows no significant focal parenchymal opacification
Chest x-ray 02/11 shows slightly increased hazy opacity on RLB likely progressive pleural effusion
Patient was started on Lasix 40 mg IV twice daily given worsening volume overload (01/17). ICU input will DC Lasix today
ID input appreciated. Consider palliative/hospice, narrow antibiotics to Unasyn. Unasyn DC today(D8)
Vasopressin DC'd, increaseD midodrine to 15mg 3 times daily, continue Levophed,wean as tolerated. Florinef started
UA contaminated, no significant pyuria
Cultures negative thus far.
aspiration precautions
GI input appreciated. Patient agreeable to PEG tube placement.
TB spot neg
Acute respiratory failure with hypoxemia on oxygen
Monitor
Appears iatrogenic fluid overload secondary to fluids, now on Lasix
Anemia
Some dilutional but do suspect anemia of chronic disease
-Hemoglobin today 7.6
-Transfusion if hemoglobin drops below 7
-Trend hemoglobin, monitor CBC
#Hyponatremia
Monitor
#Hypokalemia
#Hypomagnesemia
#Hypocalcemia
-Replete
�
#Seizure Disorder
�- No evidence of recent / active seizures.
�- Continue AEDs without changes / interruption.
�- Monitor for any breakthrough seizure activity.
#Schizophrenia
Bipolar Disorder
Cognitive Impairment
�- Stable.� Continue risperidone and benztropine.
�- Hold SSRI acutely given hyponatremia.
�-Watch for adverse effects on psych meds
DVT Prophylaxis:�LMWH
Code Status:� Full
Anticipated Discharge: > 48 hours
Objective Data
-
Labs:
Laboratory Results
02/14/24 02/14/24
04:16 12:00
WBC 17.1 H
Hgb 7.6 L
Hct 21.2 L
Plt Count 274 D
Sodium 132 L Pending
Potassium 2.6 L* Pending
Chloride 94 L Pending
Carbon Dioxide 31 H Pending
BUN 19 H Pending
Creatinine 0.6 Pending
Glucose 90 Pending
Calcium 7.0 L Pending
Vital Signs:
Vital Signs
Temp Pulse Resp BP Pulse Ox
98.1 F 79 25 82/50 96
02/14/24 10:37 02/14/24 09:15 02/14/24 09:15 02/14/24 09:15 02/14/24 09:20
I&O
02/13/24 02/14/24 02/15/24
06:59 06:59 06:59
Intake Total 1703.9 / 1757.7 1530.8 / 1795.8 567.5 / 567.5
Output Total 2450 / 2450 2250 / 2250 500 / 500
Balance -746.1 / -692.3 -719.2 / -454.2 67.5 / 67.5
Review of Systems
-
All other systems: Reviewed and negative (Except as documented)
Physical Exam
-
General: Appears Chronically Ill
HEENT: Other (dobhoff in place)
Respiratory: Negative Rales or Rhonchi
Cardiac: Regular Rhythm and S1/S2
GI: Soft and Nontender
Musculoskeletal: Negative No Clubbing or No Edema
Neuro: Awake
Psych: Calm
Data Reviewed
-
Labs: Labs Reviewed by me and Discussed with Physician
--- NOTE | 2024-02-14 12:01 | W.PN.GI.CBS2 ---
Addendum entered and electronically signed by Yan Hyatt MD 02/14/24 13:29:
I saw and examined the patient.
The CLINICAL IMMUNOLOGIST or PA's note was reviewed and I agree with the note.
Comment:
Pt wt loss, leukocytosis, receiving DHT feeds
no acute distress
impression:
wt loss
malnutrition
leukocytosis
plan:
no clear infection now but still with leukocytosis and increasing need for BP support
will hold on PEG for now
ID following
slow feeds to prevent refeeding
Original Note:
Today's Communication / Plan
-
Still unstable for PEG
As per plan
Assessment / Plan
-
Pt is a 52 y/o woman with a hx of seizures, bipolar, developmental delay, ambulatory dysfunction, chronic hypotension admitted from [place] with admission in November with sepsis/PNA requiring pressors. During admission she had DHT placed. GI followed
during admission for possible peg. In discussion with patient and guardian patient had declined peg and also noted with significant thrombocytopenia and peg was held. She now returned with fever and hypotension with concern for recurrent sepsis
and aspiration. She is also noted with significant electrolyte imbalance and CT with noted some diffuse colonic and some small bowel wall thickening which could represent enterocolitis. No intestinal obstruction or free air. Pt has had also
noted with additional 15 lbs wt loss since November and now 79lbs.
-sepsis/fever- PNA vs urinary vs GI with enteritis per ID
-aspiration pneumonitis
-wt loss
-concern for refeeding syndrome with electrolyte imbalance with initiation of tube feeds
-rectal bleeding and soft fecal impaction on exam with overflow diarrhea
-CT with concern for enterocolitis
-chronic hypotension on midodrine with BP down to 50's after admission
-acute on chronic anemia iron studies not consistent with iron deficiency
-dysphagia
-electrolyte imbalance on admission
-hypoalbuminemia
-severe protein malnutrition
-elevated random cortisol level
other medical problems:
-seizure disorder
-bipolar
-developmental delay
-ambulatory dysfunction
PLAN:
Continue TF as ordered, slow to prevent refeed
May need to start Trickle Miralax vs Milk of Mag (small volume 5-15 cc) to prevent constipation
still not medically stable for peg, patient still on Levophed with increase dose since last pm, Florinef added
trend hbg with anemia plan for EGD with peg and OP colonoscopy when improved-- iron studies not consistent with iron deficiency
On Pantoprazole
Subjective
Subjective
Date of Service: February 14, 2024
Patient on Levophed, Florinef and Midodrine for pressure support. Tolerating TF via Dobbhoff at 10 cc/hr and 25 cc every hr flush. No BM in 3 days. She had overflow diarrhea. Improved after enema and solid stool removed. TF are going to be advanced
to 30 ml/hr. Abx finished. Still unable to wean pressors was Levo 5 last night, 8 this am and now Levo 12.
Objective
Data Reviewed
Laboratory Data:
Laboratory Results
02/14/24 04:16
Laboratory Results
PT 17.3 Sec (11.4-14.6) H 02/08/24 10:48
INR 1.44 02/08/24 10:48
APTT 37.6 Sec (23.4-35.0) H 02/08/24 10:48
Phosphorus 4.1 mg/dl (2.5-4.5) 02/14/24 04:16
Magnesium 1.9 mg/dl (1.6-2.3) 02/14/24 04:16
Total Bilirubin 0.6 mg/dl (0.2-1.3) 02/11/24 04:49
AST 27 U/L (14-36) 02/11/24 04:49
ALT 13 U/L (0-35) 02/11/24 04:49
Alkaline Phosphatase 66 U/L (38-126) 02/11/24 04:49
Vital Signs and I&O:
Vital Signs
Temp Pulse Resp BP Pulse Ox
98.1 F 99 24 94/63 98
02/14/24 10:37 02/14/24 11:30 02/14/24 11:30 02/14/24 11:30 02/14/24 11:30
I&O
02/13/24 02/14/24 02/15/24
06:59 06:59 06:59
Intake Total 1703.9 / 1757.7 1530.8 / 1795.8 682.5 / 682.5
Output Total 2450 / 2450 2250 / 2250 500 / 500
Balance -746.1 / -692.3 -719.2 / -454.2 182.5 / 182.5
Physical Exam
Physical Exam
HEENT: Anicteric
Cardiology: Normal Sinus Rhythm
Pulmonary: Clear (anterior)
GI: Soft, Non Distended, Non Tender and Normal Bowel Sounds (hypoactive)
Neuro: Other (awakes to stimuli)
--- NOTE | 2024-02-14 13:30 | W.PN.UPDATE ---
Update Note
Progress Note Update
for billing purposes only
[2024-02-14 14:39] LABS: Lactic Acid 1.6 mmol/L (0.7-2.0)
[2024-02-14 14:46] LABS: Blood Urea Nitrogen 20 mg/dl (7-17); Calcium 6.8 mg/dl (8.4-10.2); Carbon Dioxide 26 mmol/L (22-30); Chloride 98 mmol/L (98-107); Estimated Creatinine Clearance 63 ml/min; Glucose 99 mg/dl (70-99); Potassium 3.8 mmol/L (3.5-5.1); Sodium 128 mmol/L (135-145); eGFR > 60.00
[2024-02-14 15:04] LABS: Procalcitonin 0.22 ng/ml (0.0-0.25)
[2024-02-14 16:09] LABS: Urine Albumin Negative (Neg - Trace); Urine Bilirubin Negative (Negative); Urine Character Clear (Clear); Urine Color Yellow; Urine Glucose Negative (Negative); Urine Ketone Negative (Negative); Urine Leukocyte Negative (Negative); Urine Nitrite Negative (Negative); Urine Occult Blood Negative (Negative); Urine Urobilinogen Negative (Neg - 1+)
[2024-02-14] MEDS: PITRESSIN 100 IV (17:51)
[2024-02-14] MEDS: LEVOPHED 258 MG IV (17:51)
[2024-02-14] MEDS: LOVENOX 30 MG SC (17:52)
--- NOTE | 2024-02-14 18:12 | PTCARENOTE ---
pt. thanh cultured per orders, awaiting micro results. Wean to RA, SpO2 96%. Levo gtt remains infusing to keep MAP >60 and vaso gtt restarted- see flow sheet. TF advanced per orders, tolerating. Repositioned per protocol and safe environment
maintained.
--- NOTE | 2024-02-14 20:15 | PTCARENOTE ---
cub reporter, pt awake, oriented to self, SR HR 70s-80s, RDL PICC WNL with levo and vaso gtts infusing per work list. RA Sat 92%. R dht with TF infusing per order. pt inc large amt liquid stool, purewick removed, sharmila/skin care complete. CHG cloths
done.
[2024-02-14] MEDS: CALCIUM GLUCONATE 130 MG IV (22:12)
[2024-02-15] VITALS (93 sets, daily range): BP systolic 72–131; BP diastolic 20–95; BMI 13.3
--- NOTE | 2024-02-15 | PTCARENOTE ---
Reassessed, no changes, turned/repositioned.
[2024-02-15] MEDS: PITRESSIN 100 IV ×3 (03:55→23:38)
[2024-02-15 04:06] LABS: Hemoglobin 7.1 g/dL (12.0-16.0); Mean Corp Hgb Conc. 36.4 g/dL (33.0-37.0); Mean Corpuscular Hgb 32.3 pg (27.0-31.0); Mean Corpuscular Volume 88.6 fL (81.0-99.0); Mean Platelet Volume 10.4 fL (7.4-10.4); Nucleated Red Blood Cells % 0.2 %; Platelet Count 270 10^3/uL (130-400); Red Cell Dist. Width 15.2 % (11.5-14.5); White Blood Cell Count 13.8 10^3/uL (4.8-10.8)
[2024-02-15 04:11] LABS: Hematocrit 19.5 % (37.0-47.0)
[2024-02-15 04:19] LABS: Blood Urea Nitrogen 17 mg/dl (7-17); Calcium 7.3 mg/dl (8.4-10.2); Carbon Dioxide 27 mmol/L (22-30); Chloride 94 mmol/L (98-107); Estimated Creatinine Clearance 63 ml/min; Glucose 119 mg/dl (70-99); Magnesium 1.6 mg/dl (1.6-2.3); Sodium 125 mmol/L (135-145); eGFR > 60.00
[2024-02-15] MEDS: KCL ELIXIR 40 MEQ TUBE (04:51)
[2024-02-15] MEDS: KCL 100 IV (04:51)
[2024-02-15] MEDS: LEVOPHED 258 MG IV ×2 (04:51→23:37)
[2024-02-15] MEDS: MAGNESIUM SULFATE 50 IV (04:51)
[2024-02-15 05:30] LABS: Absolute Neutrophils -Man Diff 7.3 10^3/uL (1.4-6.5); Band Neutrophils 20 % (0-3); Lymphocytes 40 % (20-51); Segmented Neutrophils 33 % (42-75)
[2024-02-15 05:31] LABS: Eosinophils 3 % (0-6); Hypochromasia 2+; Monocytes 2 % (2-9); Myelocytes 2 % (-); Normal RBC Morphology No; Platelets Checked Yes; Total Cells Counted 100
--- NOTE | 2024-02-15 06:00 | PTCARENOTE ---
no changes in pt assessment.
[2024-02-15] MEDS: CALCIUM GLUCONATE 130 MG IV (07:33)
[2024-02-15] MEDS: VITAMIN B1 100 MG PO (07:52)
[2024-02-15] MEDS: LOW STRENGTH ASPIRIN 81 MG PO (07:52)
[2024-02-15] MEDS: COGENTIN 0.5 MG TUBE ×3 (07:52→21:56)
[2024-02-15] MEDS: PROZAC 20 MG TUBE ×2 (07:52→20:15)
[2024-02-15] MEDS: RISPERDAL 1 MG TUBE (07:52)
[2024-02-15] MEDS: THERAGRAN 1 TABLET TUBE (07:52)
[2024-02-15] MEDS: ProAmatine 15 MG TUBE ×3 (07:52→17:02)
[2024-02-15] MEDS: ROBITUSSIN 400 MG TUBE ×4 (07:53→21:56)
[2024-02-15] MEDS: DEPAKENE 250 MG TUBE ×3 (07:53→21:56)
--- NOTE | 2024-02-15 08:00 | PTCARENOTE ---
Received patient from hand gluer and slicer. Patient is somnolent, arousable, responds to self. soft spoken, difficult to understand. is able to move all extremities, is very weak. She is on 2L, coarse, diminished breath sounds throughout, weak non
productive cough. Patient on levo and vaso gtt for map>65. Infusing through right double lumen PICC. Patient has dobhoff tube with osmolite trickle feed nutrition, was grossly incontinent of bowel and bladder. Will clean, turn and reposition q2
and as needed.
--- NOTE | 2024-02-15 09:07 | W.PN.GI.CBS2 ---
Today's Communication / Plan
-
gi signing off pt on pressors no role for peg at this time
Assessment / Plan
-
Pt is a 52 y/o woman with a hx of seizures, bipolar, developmental delay, ambulatory dysfunction, chronic hypotension admitted from [place] with admission in November with sepsis/PNA requiring pressors. During admission she had DHT placed. GI followed
during admission for possible peg. In discussion with patient and guardian patient had declined peg and also noted with significant thrombocytopenia and peg was held. She now returned with fever and hypotension with concern for recurrent sepsis
and aspiration. She is also noted with significant electrolyte imbalance and CT with noted some diffuse colonic and some small bowel wall thickening which could represent enterocolitis. No intestinal obstruction or free air. Pt has had also noted
with additional 15 lbs wt loss since November and now 79lbs.
-sepsis/fever- PNA vs urinary vs GI with enteritis per ID
-aspiration pneumonitis
-wt loss
-concern for refeeding syndrome with electrolyte imbalance with initiation of tube feeds
-rectal bleeding and soft fecal impaction on exam with overflow diarrhea
-CT with concern for enterocolitis
-chronic hypotension on midodrine with BP down to 50's after admission
-acute on chronic anemia iron studies not consistent with iron deficiency
-dysphagia
-electrolyte imbalance on admission
-hypoalbuminemia
-severe protein malnutrition
-elevated random cortisol level
other medical problems:
-seizure disorder
-bipolar
-developmental delay
-ambulatory dysfunction
PLAN:
Continue TF as ordered, slow to prevent refeed
May need to start Trickle Miralax vs Milk of Mag (small volume 5-15 cc) to prevent constipation
still not medically stable for peg, patient still on Levophed
trend hbg with anemia plan for EGD with peg and OP colonoscopy when improved-- iron studies not consistent with iron deficiency
On Pantoprazole
GI will sign off please re-consult when medically stable for PEG
Subjective
Subjective
Date of Service: February 15, 2024
pt still on pressors
Objective
Data Reviewed
Laboratory Data:
Laboratory Results
02/15/24 03:53
02/15/24 03:53
Laboratory Results
PT 17.3 Sec (11.4-14.6) H 02/08/24 10:48
INR 1.44 02/08/24 10:48
APTT 37.6 Sec (23.4-35.0) H 02/08/24 10:48
Phosphorus 4.0 mg/dl (2.5-4.5) 02/15/24 03:53
Magnesium 1.6 mg/dl (1.6-2.3) 02/15/24 03:53
Total Bilirubin 0.6 mg/dl (0.2-1.3) 02/11/24 04:49
AST 27 U/L (14-36) 02/11/24 04:49
ALT 13 U/L (0-35) 02/11/24 04:49
Alkaline Phosphatase 66 U/L (38-126) 02/11/24 04:49
Vital Signs and I&O:
Vital Signs
Temp Pulse Resp BP Pulse Ox
97.9 F 66 22 107/62 98
02/15/24 07:35 02/15/24 08:45 02/15/24 08:45 02/15/24 08:30 02/15/24 08:45
I&O
02/14/24 02/15/24 02/16/24
06:59 06:59 06:59
Intake Total 1530.8 / 1795.8 2262.2 / 2366.2 313 / 313
Output Total 2250 / 2250 800 / 800
Balance -719.2 / -454.2 1462.2 / 1566.2 313 / 313
Physical Exam
Physical Exam
HEENT: Other (sleeping)
--- NOTE | 2024-02-15 09:50 | W.PN.ID1 ---
Date of Service
Date of Service: February 15, 2024
Today's Communication
follow clinically off of antibiotics
Assessment / Plan
Hypotension
Fever - resolved
Leukocytosis - improving
Aspiration pneumonia- resolved
- Completed 7 days unasyn; observe off of antibiotics.
- Aspiration precaution
- Follow wbc periodically
Profound Cachexia
- agree with lack of utility of PEG tube
- recommend outpatient age appropriate cancer screening - follow up with PCP for further management
Overall prognosis guarded
����������������������������������������������������������
Chief Complaint
-: Pneumonia
Subjective / Review of Systems
afebrile
bp soft this am
declining leukocytosis
no complaints
Vital Signs / Physical Exam
Vital Signs
Vital Signs
Temp Pulse Resp BP Pulse Ox
97.9 F 66 22 107/62 98
02/15/24 07:35 02/15/24 08:45 02/15/24 08:45 02/15/24 08:30 02/15/24 08:45
Physical Exam
Constitutional: No Acute Distress and Chronically Ill
Cardiovascular: Regular Rate and S1/S2; Negative Murmur or Rub
Pulmonary: Clear and Symmetric; Negative Wheezes or Rales
Gastrointestinal: Soft, Non Tender, Non Distended and Normal Bowel Sounds
Skin: Warm and Dry; Negative Rash or Jaundice
Objective Data
Lab Data
Lab Results
02/15/24 03:53
02/15/24 03:53
PT 17.3 Sec (11.4-14.6) H 02/08/24 10:48
INR 1.44 02/08/24 10:48
APTT 37.6 Sec (23.4-35.0) H 02/08/24 10:48
Estimated Creat Clear 63 ml/min 02/15/24 03:53
Lactic Acid 1.6 mmol/L (0.7-2.0) 02/14/24 14:12
Total Bilirubin 0.6 mg/dl (0.2-1.3) 02/11/24 04:49
AST 27 U/L (14-36) 02/11/24 04:49
ALT 13 U/L (0-35) 02/11/24 04:49
Alkaline Phosphatase 66 U/L (38-126) 02/11/24 04:49
Most recent labs reviewed.
Micro Results:
02/14/24 14:56 Blood Culture - Pending
Blood/Venous
02/14/24 14:12 Blood Culture - Pending
Blood/Venous
02/08/24 01:42 Blood Culture - Final
Blood/Venous No Growth - Final Report
02/08/24 01:42 Blood Culture - Final
Blood/Venous No Growth - Final Report
02/08/24 02:46 Urine Culture - Final
Urine
02/08/24 17:50 Legionella Urinary Antigen - Final
Urine Negative for Legionella pneumophila Serogroup 1 antigen.
A negative result does not rule out the possiblity of
Legionella infection due to other serogroups or species of
Legionella. Clinical correlation is recommended.
Streptococcus pneumoniae Antigen (M - Final
Negative for Streptococcus pneumoniae antigen.
A negative result does not exclude infection with
Streptococcus pneumoniae. Clinical correlation is
recommended.
02/08/24 08:13 Nasal Screen MRSA (PCR) - Final
Nose MRSA not detected - performed by PCR methodology.
02/08/24 01:27 Influenza Types A & B (LANA) - Final
Nasal Swab Negative for Influenza A & B, NAAT
Negative results must be combined with clinical observations
and patient history.
Nucleic Acid Amplification test (NAAT)performed on the
[employer] platform.
Imaging:
02/10/2024 CXR (portable): Study limited secondary to rotation to the right. Slightly prominent pulmonary interstitial markings which could represent interstitial pneumonitis or edema.
--- NOTE | 2024-02-15 10:13 | W.PN.HOSP.TC ---
Today's Communication/Plan
-
Monitor Hgb
TRANSFUSE 1 uni Hgb <7
Monitor BMP
Assessment / Plan
Assessment / Plan
A/P:� Patient is a 53y F with PMH significant for schizophrenia, cognitive impairment, chronic malnutrition and seizure disorder who presents to ED for evaluation of fever and hypotension.
# Hypovolemic shock suspect Sepsis secondary to enterocolitis versus aspiration pneumonitis
# Chronic dysphagia
Chest x-ray in ED shows no acute pulmonary process.
chest x-ray 02/09 shows no significant focal parenchymal opacification
Chest x-ray 02/11 shows slightly increased hazy opacity on RLB likely progressive pleural effusion
Chest x-ray 02/14 shows pleural effusion
Vasopressin initiated one-time yesterday, DC'd, increaseD midodrine to 15mg 3 times daily, continue Levophed,wean as tolerated. Florinef d/c
Cultures negative thus far. new set of blood cultures ordered yesterday, still pending
aspiration precautions
Patient not stable for PEG tube placement
Completed Unasyn for aspiration.
Continue n.p.o. trickle double feeds
Anemia
Some dilutional but do suspect anemia of chronic disease
-Hemoglobin today 7.1
-Transfusion if hemoglobin drops below 7
-Trend hemoglobin, monitor CBC
#Hyponatremia
Monitor
#Hypokalemia
#Hypomagnesemia
#Hypocalcemia
-Replete
�
#Seizure Disorder
�- No evidence of recent / active seizures.
�- Continue AEDs without changes / interruption.
�- Monitor for any breakthrough seizure activity.
#Schizophrenia
Bipolar Disorder
Cognitive Impairment
�- Stable.� Continue risperidone and benztropine.
�- Hold SSRI acutely given hyponatremia.
�-Watch for adverse effects on psych meds
DVT Prophylaxis:�LMWH
Code Status:� Full
Anticipated Discharge: > 48 hours
Objective Data
-
Labs:
Laboratory Results
02/15/24 02/15/24
03:53 12:00
WBC 13.8 H
Hgb 7.1 L
Hct 19.5 L*
Plt Count 270
Sodium 125 L Pending
Potassium 3.0 L Pending
Chloride 94 L Pending
Carbon Dioxide 27 Pending
BUN 17 Pending
Creatinine 0.5 L Pending
Glucose 119 H Pending
Calcium 7.3 L Pending
Vital Signs:
Vital Signs
Temp Pulse Resp BP Pulse Ox
97.9 F 66 22 107/62 98
02/15/24 07:35 02/15/24 08:45 02/15/24 08:45 02/15/24 08:30 02/15/24 08:45
I&O
02/14/24 02/15/24 02/16/24
06:59 06:59 06:59
Intake Total 1530.8 / 1795.8 2262.2 / 2366.2 313 / 313
Output Total 2250 / 2250 800 / 800
Balance -719.2 / -454.2 1462.2 / 1566.2 313 / 313
Review of Systems
-
All other systems: Reviewed and negative (Except as documented)
Physical Exam
-
General: Appears Chronically Ill
HEENT: Normocephalic
Respiratory: Negative Rales or Rhonchi
Cardiac: Regular Rhythm and S1/S2
GI: Soft and Nontender
Musculoskeletal: Negative No Clubbing or No Edema
Neuro: Awake
Psych: Calm
Data Reviewed
-
Labs: Labs Reviewed by me and Discussed with Physician
--- NOTE | 2024-02-15 10:56 | PTCARENOTE ---
Discussed possible blood transfusion needs during rounds, no consent for blood in paper chart or scanned in.
[2024-02-15 12:24] LABS: Blood Urea Nitrogen 14 mg/dl (7-17); Carbon Dioxide 22 mmol/L (22-30); Chloride 94 mmol/L (98-107); Estimated Creatinine Clearance 65 ml/min; Glucose 118 mg/dl (70-99); Potassium 4.3 mmol/L (3.5-5.1); Sodium 119 mmol/L (135-145); eGFR > 60.00
--- NOTE | 2024-02-15 12:49 | PTCARENOTE ---
No change in patient's assessment. Repeat labs sent, critical lab value of 119 reported.
--- NOTE | 2024-02-15 12:50 | W.PN.INTV ---
Today's Communication / Plan
Recommendations
Continue to monitor electrolytes and replete as necessary
No further IV fluids
Diuretics on hold due to hypotension
Continue to monitor off antibiotics
Trickle tube feedings as tolerated
May need to consider transfusion or IV albumin infusion for hypotension. Will be an ongoing discussion.
Poor prognosis
Hospice would be appropriate in this situation.
Assessment
-
53-year-old F with PMHx of chronic hypotension on midodrine seizures, developmental delay, schizophrenia, bipolar disorder and history of UTI who p/w hypotension from her NH ([facility]) and fever to 103F. Patient is poor historian and unable
to obtain accurate HPI as she mumbles when speaks with incoherent speech. Patient was recently in November of this year for aspiration PNA with septic shock. PEG tube was discussed at that time however this was not done. Patient had
thrombocytopenia as well during that time which precluded prompt placement at that time. In the ER she was febrile to 100.7 �F, pulse rate 92, breathing at 19 breaths/min, hypotensive to 92/60 and saturating 98% on room air. Pt given tylenol PERSONAL CAREGIVER.
Pt had a wet cough that was reported. Labs showed WBC 8.1, Hb 10.7, platelets 241, sodium 126, chloride 92, glucose 63, calcium 6.9 and albumin level 1.9. Cortisol was checked given concern for possible adrenal insufficiency and her level was 120.
UA showed moderate urine bacteria with 11�15 urine WBC and trace leukocyte esterase. Her COVID antigen is negative. CXR showed no acute cardiopulmonary process, and CT abdomen/pelvis showed diffuse colonic and small bowel wall thickening which
could represent enterocolitis with no intestinal obstruction or free air seen. Patient given calcium gluconate, D50, and 2L of IVF with NS 0.9%. Due to concern for aspiration and sepsis with hypotension, she was TRX to ICU for further care.
Impression:
#Shock - suspected sepsis due to enterocolitis vs aspiration vs UTI in setting of hypoalbuminemia
#Abnormal CT Abd/Pelvis with diffuse colonic and small bowel wall thickening suspicious for enterocolitis
#Acute respiratory failure with hypoxemia on supplemental oxygen
#Acute on chronic anemia due to blood loss now with 'pink' stool concerning for GI bleed - DDx includes brisk UGIB vs LGIB (baseline Hb: 10-12g/dL)
#Hx of thrombocytopenia
#Hypoglycemia
#Hypochloremic, hyponatremia - likely due to reduced PO intake (this is further supported by pt's hypoglycemia in setting of normal random cortisol)
#Hypomagnesemia and hypophosphatemia likely due to refeeding syndrome
#Hypoalbuminemia likely due to malnutrition
#Abnormal urinalysis suspicious for UTI
#Developmental delay with Hx of dementia
#Chronic hypotension on midodrine as an outpatient
Chronic medical conditions PERSONAL CAREGIVER:
Hypercholesterolemia
seizures
developmental delay
schizophrenia
bipolar disorder
chronic ambulatory dysfunction (wheelchair-bound)
chronic hypotension on midodrine
scoliosis
history of UTI
anxiety
bipolar disorder
history of dysphagia
Plan:
Patient remains critically ill requiring Levophed and vasopressin.
-
Suspect shock/hypotension due to low vascular tone/hypoalbuminemia. Recovering septic shock.
-
Remains on pressors/midodrine max doses-levo @6 mics per minute. Overall requirements slowly improving.
Continue vasopressors with levophed with goal MAP>65
Florinef tried - but no impact on BP.
Continue midodrine 15mg TID (raised from 10mg TID on 02/10) in attempt to wean off vasopressors
Consider A line if cuff not accurate
Status post diuresis. Hold for now.
AM cortisol obtained >120, adequate response
No adrenal insufficiency based on this result
Steroids held.
TSH WNL
May need to consider albumin infusion as a trial.
-
Remains on 2L NC, not significantly hypoxemic
CXR showing no acute findings/congestion suggesting volume overload
proBNP 3600.
Aspiration precautions
Limiting IV fluids.
Diuresis on hold.
-
NPO, DHT in place
PEG tube has been considered/she is under guardianship per [facility]
GI has signed off due to instability. No plans for PEG tube or any endoscopy at this point.
-
Severe cachexia/malnutrition
Refeeding syndrome likely
Continue low rate feedings for now.
Electrolytes will be repleted
Hyponatremia noted, Likely hypervolemic. her weight has trended lower.
Control Systems Developer following, repeat labs/replete electrolytes as indicated
-
Continue to monitor off antibiotics.
Completed Abx --> remains on Unasyn after being on Zosyn since 02/08/2024/completed 6 days
Infectious disease continues to follow.
WBC noted, but no fever, culture negative:
All cultures negative.
-
Follow I/Os
Follow daily weights
-
Maintain euglycemia with goal BG 140-180
-
Anemia: Last hemoglobin 7.1.
No further GI bleed. Ongoing diarrhea. No plans for endoscopy/colonoscopy per GI
Given ongoing hypotension without clear etiology, will consider transfusion of packed red blood cells. No consent available.
Follow CBC.
DVT ppx: SCDs; hold chemical ppx for now given acute gi bleed
-
Difficult situation given her care is directed by the [facility], needs GOC discussions. Prognosis is very poor.
In discussion with multiple physicians, hospice would be appropriate. For now full code per her guardian.

Diagnostic Data
CT A/P with IV contrast 02-08-2024: MARKEDLY LIMITED STUDY DUE TO NUMEROUS FACTORS.
Gross findings suggesting some diffuse colonic and some small bowel wall thickening which could represent enterocolitis. No intestinal obstruction or free air.
CXR 02-08-2024: No acute cardiopulmonary process.
CXR 02-10-2024: Somewhat limited study with patient rotated to the right. Slightly prominent pulmonary interstitial markings bilaterally. Findings could represent interstitial pneumonitis or edema.
No pneumothorax. Likely small right pleural effusion.
CXR 02-12-2024: Patient remains rotated to the right. Right PICC line catheter and nasogastric tube remain in place. Slightly increased hazy opacity at the right lung base, likely progressive pleural effusion. Progressive interstitial thickening is
demonstrated throughout the left hemithorax. Asymmetric interstitial edema versus interstitial infectious or inflammatory changes/pneumonitis. No focal dense consolidation.
-----
Critical Care time 35 mins -- The patient is admitted for acute critical illness for the treatment of vital organ failure and/or prevention of further life-threatening conditions. Total care includes time spent in review of history, physical exam,
medications, hemodynamic/ventilator parameters, laboratory data, imaging and discussion with house staff, pharmacy, respiratory therapy, soccer ball assembler, and nursing.
Subjective Dataa
Subjective Data
Date of Service:
Date of Service: February 15, 2024
Chief Complaint: Cashier Parking Lot Follow Up
Subjective:
Unfortunately, remains critically ill on mechanical ventilation.
Multiple electrolyte derangements
Unable to tolerate tube feedings
Review of Systems
General: Other (Unable to provide due to underlying cognitive)
Objective Data
Data Reviewed
Vital Signs / I&O / Oxygen:
Vital Signs
Temp Pulse Resp BP Pulse Ox
98.0 F 72 22 86/55 97
02/15/24 11:06 02/15/24 10:15 02/15/24 10:15 02/15/24 10:15 02/15/24 10:15
Intake and Output
02/14/24 02/15/24 02/16/24
06:59 06:59 06:59
Intake Total 1530.8 / 1795.8 2262.2 / 2366.2 464 / 464
Output Total 2250 / 2250 800 / 800
Balance -719.2 / -454.2 1462.2 / 1566.2 464 / 464
SaO2 97
Nasal Cannula flow liters per 2
minute
Physical Exam
General: Comfortable and Other (Cachectic)
HEENT: Normocephalic, Anicteric and Moist Mucous Membranes
Cardiovascular: S1-S2 and Peripheral Edema (negative)
Respiratory: Clear (Anterior lung coronado are clear to auscultation bilaterally), Wheeze (negative), Crackles (Bibasilar heard in posterior lung coronado), Rhonchi (Island in the left posterior base) and Accessory Resp Muscle Use (negative)
GI: Soft, Non Distended, Non Tender, Normal Bowel Sounds and NG Tube
Neurology: Awake, Alert, Depressed and Other (can nod head and follow simple commands, not extremely conversive)
Skin: Warm, Dry and Bruising (negative)
Labs/Micro/Reports
Lab Data
02/15/24 03:53
02/15/24 11:50
Microbiology
02/08/24 01:42 Blood/Venous Blood Culture - Final
No Growth - Final Report
02/08/24 01:42 Blood/Venous Blood Culture - Final
No Growth - Final Report
[2024-02-15] MEDS: ALBUMIN 5% 250 IV (13:49)
--- NOTE | 2024-02-15 13:55 | W.PN.UPDATE ---
Update Note
Progress Note Update
Patient seen and examined
Discussed with resident
Discussed with nursing
Discussed with patient's guardian Arti Willis.
Impression:
Persistent shock with hypotension responded to IV fluids and requiring vasopressors
Aspiration syndrome
Enterocolitis.
Abnormal urinalysis concern for UTI.
Acute hypoxic respiratory failure.
Acute on chronic anemia with trending down hemoglobin
Hypovolemic hyponatremia.
Hypomagnesemia
Hypoalbuminemia.
Conditions prior to admission:
Severe protein calorie malnutrition with BMI of 13.
Chronic hypertension on midodrine
Developmental delay with dementia.
Schizophrenia/bipolar disorder by history
Chronic ambulatory dysfunction wheelchair-bound.
Plan:
Shock likely multifactorial due to infection as well as hypovolemia
Aspiration syndrome with aspiration pneumonia, enterocolitis. Completed course of antibiotics. Monitor closely including temperature curve and WBC
Persistent hypotension.
Continue midodrine through nasogastric tube
Attempt to wean off Levophed/vasopressin.
Noted with worsening anemia and hemoglobin down to 7.1. Will transfuse 1 unit of packed red blood cells (consent obtained from patient's guardian Arti Wlilis)
Continue trial of albumin
Severe aspiration syndrome
Patient remains n.p.o.
NG tube in place for feeding.
Continue aspiration precautions.
Hemodynamically unstable given profound hypotension in terms of PEG tube placement
Severe cachexia and malnutrition
Refeeding syndrome suspected.
Continue close electrolyte management.
Hyponatremia likely multifactorial and secondary to hypovolemia, also suspect component of ADH due to prerenal stimuli with persistent hypotension. Possibly related to Depakote.
Hypokalemia, replete and follow
Elevated pro CHF BNP.
Chest x-ray with bilateral pleural effusion small.
Echo 08/07 with preserved biventricular function and no significant valvular abnormalities
Monitor volume status closely
Will avoid Lasix with hypotension unless absolutely necessary with decompensated respiratory status.
Goals of care discussion
Tensive discussion with patient's guardian Arti Willis on 02/14.
Patient with severe aspiration syndrome, profound hypotension, severe malnutrition, underlying cognitive disability, multiple readmissions from nursing facility.
Patient's guardian contemplating options of PEG tube placement (currently problematic due to hemodynamic instability).
Reiterated PEG tube if in place and would not improve quality of life and or aspiration risk.
At this point plan will be attempt to pursue hemodynamic stability and further evaluation with hope of nutrition will improve aspiration risk.
--- NOTE | 2024-02-15 14:23 | CM ---
CM following re: discharge planning.
Discussed in Rounds, reviewed pt's chart. Per Rounds meeting, continue supportive care, Gastroenterology and ID following.
Pt is a fci care resident (LTC) at [facility] and is on an MA bed hold, She requires assist of 1 for transfers and is able to feed herself. The patient was placed there last year after her mother, who was her caregiver, passed
away. Pt has a brother who has little involvement in pt's care. Pt has legal guardian: Arti Willis.
D/C plan: return back to [facility] for a intermodal customer service care
CM will follow with discharge plan updates as hospitalization progresses
--- NOTE | 2024-02-15 15:07 | PTCARENOTE ---
Unit of blood ordered, Luis Carlos texted Dr. Israel who ordered, he will sign consent form as consent was obtained over the phone.
--- NOTE | 2024-02-15 16:33 | PTCARENOTE ---
PAtient has had multiple loose liquid bowel movements. HAve notified hospitalist and case maker. Still running tube feeds at 30ml at this time. Nasal trumpet to rectum per leakage.
[2024-02-15] MEDS: LOVENOX 30 MG SC (17:02)
--- NOTE | 2024-02-15 18:25 | PTCARENOTE ---
Started unit of blood, patient was incontinent of stool agaain, rectal trumpet removed, not effective.
--- NOTE | 2024-02-15 20:15 | PTCARENOTE ---
Rec'd pt awake, needs reorientation, cooperative, slow speech, PRBC infused, SR, to keep MAP > 60 , presently on levo at 4 ankur & vasopressin at 0.03mic, see flow sheet for titrations, weak distal pulses, skin warm/dry, O2 2 literes nc, sat 95,
percussion done, lungs decr, occas cough, + bowel sounds, inc lg amt liquid brown/gold stool, fecal mgmt sys inserted, R nares dobhoff- receiving osmolyte 1.2 at 30ml/hr & 25ml/hr h20 flush, no vomiting, abd soft, inc of urine
[2024-02-15 20:53] LABS: Depakane 84.9 ug/ml (50.0-120.0)
[2024-02-16] VITALS (53 sets, daily range): BP systolic 73–127; BP diastolic 35–89; BMI 13.7
--- NOTE | 2024-02-16 | PTCARENOTE ---
sys reviewed,changes noted, CHG bath done, linens changed, percussion done
[2024-02-16 03:29] LABS: Hemoglobin 7.3 g/dL (12.0-16.0); Mean Corpuscular Hgb 31.5 pg (27.0-31.0); Mean Corpuscular Volume 87.5 fL (81.0-99.0); Mean Platelet Volume 10.4 fL (7.4-10.4); Platelet Count 186 10^3/uL (130-400); Red Blood Cell Count 2.32 10^6/uL (4.20-5.40); Red Cell Dist. Width 14.5 % (11.5-14.5); White Blood Cell Count 11.5 10^3/uL (4.8-10.8)
[2024-02-16 03:33] LABS: Hematocrit 20.3 % (37.0-47.0)
[2024-02-16 04:14] LABS: Blood Urea Nitrogen 14 mg/dl (7-17); Carbon Dioxide 23 mmol/L (22-30); Chloride 92 mmol/L (98-107); Estimated Creatinine Clearance 65 ml/min; Glucose 86 mg/dl (70-99); Magnesium 1.5 mg/dl (1.6-2.3); Potassium 3.4 mmol/L (3.5-5.1); Sodium 118 mmol/L (135-145); eGFR > 60.00
--- NOTE | 2024-02-16 04:15 | PTCARENOTE ---
Addendum entered by Bety Interiano RN 02/16/24 04:25:
percussion done
Original Note:
sys reviewed. changes noteddCurtis NP aware of hct & Na levels
[2024-02-16] MEDS: KCL 100 IV (05:43)
[2024-02-16] MEDS: KCL ELIXIR 40 MEQ TUBE (05:43)
[2024-02-16] MEDS: MAGNESIUM SULFATE 50 IV (05:48)
[2024-02-16] MEDS: CALCIUM GLUCONATE 130 MG IV (05:53)
--- NOTE | 2024-02-16 05:58 | PTCARENOTE ---
40 kcl via tube, 40 kcl/100 over 4hr hung, 3 gm marquez gluconate over 1 hr hung, 2 gm mag sulfate/50 over 2 hr hung per order
--- NOTE | 2024-02-16 08:00 | PTCARENOTE ---
Assumed care of patient. Pt rec'd sleeping but easily arousable. Oriented to self. Confused at times. Soft voice....able to let needs be known. LE's contracted. Able to use upper extremities. S1 S2 reg w/ NSR on monitor. Weak PP. Trace
LLE. Knee hi SCD's on. On 2L N/C...sats 93-100%. Lungs diminished. Poor effort. Moist NPC. Oral care done. Abdomen flat...+BS. FMS draining liquid brownish red stool. (R) nare dhf w/ osmo @ 30ml/hr w/ 25ml/hr. Purewick on...no void
yet...will monitor. Pericare done. Calazime applied to periarea. Skin pale in color. Multiple dressings covering marilin prominences. Sacrum red but blancable...MASD noted. Right DL PICC w/ levophed and vasopressin gtts infusing...see
interventions. VS documented. Will continue to monitor closely.
[2024-02-16] MEDS: ROBITUSSIN 400 MG TUBE ×4 (09:09→21:10)
[2024-02-16] MEDS: LOW STRENGTH ASPIRIN 81 MG PO (09:09)
[2024-02-16] MEDS: DEPAKENE 250 MG TUBE ×3 (09:09→21:10)
[2024-02-16] MEDS: VITAMIN B1 100 MG PO (09:09)
[2024-02-16] MEDS: ProAmatine 15 MG TUBE ×3 (09:09→17:00)
[2024-02-16] MEDS: THERAGRAN 1 TABLET TUBE (09:10)
[2024-02-16] MEDS: RISPERDAL 1 MG TUBE (09:10)
[2024-02-16] MEDS: PROZAC 20 MG TUBE ×2 (09:10→21:10)
[2024-02-16] MEDS: COGENTIN 0.5 MG TUBE ×3 (09:10→21:10)
[2024-02-16] MEDS: PITRESSIN 100 IV ×2 (09:51→20:30)
--- NOTE | 2024-02-16 10:18 | W.PN.ID1 ---
Date of Service
Date of Service: February 16, 2024
Today's Communication
hyponatremia management per primary team
Assessment / Plan
Hypotension, chronic
Fever - resolved
Leukocytosis - improving
Aspiration pneumonia- resolved
- Completed 7 days unasyn; observe off of antibiotics.
- Aspiration precaution
- Follow wbc periodically
Profound Cachexia
- agree with lack of utility of PEG tube
- agree that hospice is a consideration
- recommend outpatient age appropriate cancer screening - follow up with PCP for further management
Hyponatremia
- managment per primary/pulmonary
Overall prognosis guarded
����������������������������������������������������������
Chief Complaint
-: Pneumonia
Subjective / Review of Systems
remains afebrile
bp chronically low, on outpatient midodrine
leukocytosis further improved - nearly resolved
marked progression of hyponatremia now 118
blood cultures remain negative
tenting
Vital Signs / Physical Exam
Vital Signs
Vital Signs
Temp Pulse Resp BP Pulse Ox
97.8 F 66 22 84/56 97
02/16/24 07:37 02/16/24 09:09 02/16/24 06:30 02/16/24 09:09 02/16/24 06:30
Physical Exam
Constitutional: No Acute Distress, Chronically Ill and Cachetic
Cardiovascular: Regular Rate and S1/S2; Negative Murmur or Rub
Pulmonary: Clear and Symmetric; Negative Wheezes or Rales
Gastrointestinal: Soft, Non Tender, Non Distended and Normal Bowel Sounds
Skin: Warm, Dry and Other (+tenting, dry mucous membranes); Negative Rash or Jaundice
Neurological: Negative Awake
Objective Data
Lab Data
Lab Results
02/16/24 03:08
02/16/24 03:08
PT 17.3 Sec (11.4-14.6) H 02/08/24 10:48
INR 1.44 02/08/24 10:48
APTT 37.6 Sec (23.4-35.0) H 02/08/24 10:48
Estimated Creat Clear 65 ml/min 02/16/24 03:08
Lactic Acid 1.6 mmol/L (0.7-2.0) 02/14/24 14:12
Total Bilirubin 0.6 mg/dl (0.2-1.3) 02/11/24 04:49
AST 27 U/L (14-36) 02/11/24 04:49
ALT 13 U/L (0-35) 02/11/24 04:49
Alkaline Phosphatase 66 U/L (38-126) 02/11/24 04:49
Most recent labs reviewed.
Micro Results:
02/14/24 14:56 Blood Culture - Preliminary
Blood/Venous No Growth in 24 hours- Final report to follow
02/14/24 14:12 Blood Culture - Preliminary
Blood/Venous No Growth in 24 hours- Final report to follow
02/08/24 01:42 Blood Culture - Final
Blood/Venous No Growth - Final Report
02/08/24 01:42 Blood Culture - Final
Blood/Venous No Growth - Final Report
02/08/24 02:46 Urine Culture - Final
Urine
02/08/24 17:50 Legionella Urinary Antigen - Final
Urine Negative for Legionella pneumophila Serogroup 1 antigen.
A negative result does not rule out the possiblity of
Legionella infection due to other serogroups or species of
Legionella. Clinical correlation is recommended.
Streptococcus pneumoniae Antigen (M - Final
Negative for Streptococcus pneumoniae antigen.
A negative result does not exclude infection with
Streptococcus pneumoniae. Clinical correlation is
recommended.
02/08/24 08:13 Nasal Screen MRSA (PCR) - Final
Nose MRSA not detected - performed by PCR methodology.
02/08/24 01:27 Influenza Types A & B (LANA) - Final
Nasal Swab Negative for Influenza A & B, NAAT
Negative results must be combined with clinical observations
and patient history.
Nucleic Acid Amplification test (NAAT)performed on the
barcoo platform.
Imaging:
02/10/2024 CXR (portable): Study limited secondary to rotation to the right. Slightly prominent pulmonary interstitial markings which could represent interstitial pneumonitis or edema.
--- NOTE | 2024-02-16 11:27 | W.PN.HOSP.TC ---
Today's Communication/Plan
-
see a/p
Assessment / Plan
Assessment / Plan
A/P:� Patient is a 53y F with PMH significant for schizophrenia, cognitive impairment, chronic malnutrition and seizure disorder who presents to ED for evaluation of fever and hypotension.
# Hypovolemic shock suspect Sepsis secondary to enterocolitis versus aspiration pneumonitis
# Chronic dysphagia
Continue midodrine
Attempt to wean off Levophed
Completed course of antibiotics monitor closely including WBC
Hemodynamically unstable for PEG tube placement
Aspiration precautions
N.p.o., NG tube in place for feeding
Consider palliative care/hospice
Anemia
Some dilutional but do suspect anemia of chronic disease
-Hemoglobin yesterday 7.1, transfused 1 unit PRBC
-Trend hemoglobin, monitor CBC
#Hyponatremia
Monitor
#Hypokalemia
#Hypomagnesemia
#Hypocalcemia
-Replete
�
#Seizure Disorder
�- No evidence of recent / active seizures.
�- Continue AEDs without changes / interruption.
�- Monitor for any breakthrough seizure activity.
#Schizophrenia
Bipolar Disorder
Cognitive Impairment
�- Stable.� Continue risperidone and benztropine.
�- Hold SSRI acutely given hyponatremia.
�-Watch for adverse effects on psych meds
DVT Prophylaxis:�LMWH
Code Status:� Full
Anticipated Discharge: > 48 hours
Objective Data
-
Labs:
Laboratory Results
02/16/24 02/16/24
00:36 03:08
WBC Pending 11.5 H
Hgb Pending 7.3 L
Hct Pending 20.3 L*
Plt Count Pending 186 D
Sodium 118 L*
Potassium 3.4 L
Chloride 92 L
Carbon Dioxide 23
BUN 14
Creatinine 0.5 L
Glucose 86
Calcium 7.0 L
Vital Signs:
Vital Signs
Temp Pulse Resp BP Pulse Ox
97.9 F 66 22 84/56 97
02/16/24 11:19 02/16/24 09:09 02/16/24 06:30 02/16/24 09:09 02/16/24 06:30
I&O
02/15/24 02/16/24 02/17/24
06:59 06:59 06:59
Intake Total 2262.2 / 2366.2 2239.3 / 2239.3
Output Total 800 / 800
Balance 1462.2 / 1566.2 2239.3 / 2239.3
Review of Systems
-
All other systems: Reviewed and negative (Except as documented)
Physical Exam
-
General: Appears Chronically Ill
Respiratory: Negative Rales or Rhonchi
Cardiac: Regular Rhythm and S1/S2
GI: Soft, Nontender and Nondistended
Musculoskeletal: Negative No Clubbing or No Edema
Data Reviewed
-
Labs: Labs Reviewed by me and Discussed with Physician
--- NOTE | 2024-02-16 11:30 | PTCARENOTE ---
made aware of dietary's concern for refeeding....labs ordered for noon.
--- NOTE | 2024-02-16 11:55 | W.PN.INTV ---
Today's Communication / Plan
Recommendations
Continue to wean down vasopressors
Continue to low rate tube feedings
Monitor electrolytes
Repeat H&H at noon, if hemoglobin lower will transfuse again.
Observe off antibiotics
Will give additional albumin bolus
Assessment
-
53-year-old F with PMHx of chronic hypotension on midodrine seizures, developmental delay, schizophrenia, bipolar disorder and history of UTI who p/w hypotension from her NH ([facility]) and fever to 103F. Patient is poor historian and unable
to obtain accurate HPI as she mumbles when speaks with incoherent speech. Patient was recently in November of this year for aspiration PNA with septic shock. PEG tube was discussed at that time however this was not done. Patient had
thrombocytopenia as well during that time which precluded prompt placement at that time. In the ER she was febrile to 100.7 �F, pulse rate 92, breathing at 19 breaths/min, hypotensive to 92/60 and saturating 98% on room air. Pt given tylenol [employer]IC[employer].
Pt had a wet cough that was reported. Labs showed WBC 8.1, Hb 10.7, platelets 241, sodium 126, chloride 92, glucose 63, calcium 6.9 and albumin level 1.9. Cortisol was checked given concern for possible adrenal insufficiency and her level was 120.
UA showed moderate urine bacteria with 11�15 urine WBC and trace leukocyte esterase. Her COVID antigen is negative. CXR showed no acute cardiopulmonary process, and CT abdomen/pelvis showed diffuse colonic and small bowel wall thickening which
could represent enterocolitis with no intestinal obstruction or free air seen. Patient given calcium gluconate, D50, and 2L of IVF with NS 0.9%. Due to concern for aspiration and sepsis with hypotension, she was TRX to ICU for further care.
Impression:
#Shock - suspected sepsis due to enterocolitis vs aspiration vs UTI in setting of hypoalbuminemia
#Abnormal CT Abd/Pelvis with diffuse colonic and small bowel wall thickening suspicious for enterocolitis
#Acute respiratory failure with hypoxemia on supplemental oxygen
#Acute on chronic anemia due to blood loss now with 'pink' stool concerning for GI bleed - DDx includes brisk UGIB vs LGIB (baseline Hb: 10-12g/dL)
#Hx of thrombocytopenia
#Hypoglycemia
#Hypochloremic, hyponatremia - likely due to reduced PO intake (this is further supported by pt's hypoglycemia in setting of normal random cortisol)
#Hypomagnesemia and hypophosphatemia likely due to refeeding syndrome
#Hypoalbuminemia likely due to malnutrition
#Abnormal urinalysis suspicious for UTI
#Developmental delay with Hx of dementia
#Chronic hypotension on midodrine as an outpatient
Chronic medical conditions [employer]ICER:
Hypercholesterolemia
seizures
developmental delay
schizophrenia
bipolar disorder
chronic ambulatory dysfunction (wheelchair-bound)
chronic hypotension on midodrine
scoliosis
history of UTI
anxiety
bipolar disorder
history of dysphagia
Plan:
Patient remains critically ill requiring Levophed and vasopressin. Improved requirements.
Suspect shock/hypotension due to low vascular tone/hypoalbuminemia. Recovering septic shock.
-
Levophed 3 mics per minute continue to wean down.
Vasopressin, continue. Hopefully can wean off.
Midodrine continue for now.
Florinef tried - but no impact on BP.
-
Status post diuresis. Hold for now.
AM cortisol obtained >120, adequate response
No adrenal insufficiency based on this result
Steroids held.
TSH WNL
Status post albumin on 02/15/2024. Will give additional bolus, hopefully with the goal to wean off vasopressors.
-
Remains on 2L NC, not significantly hypoxemic
CXR showing no acute findings/congestion suggesting volume overload
proBNP 3600.
Aspiration precautions
Limiting IV fluids.
Diuresis on hold.
-
NPO, DHT in place
PEG tube on hold. GI has signed off.
-
Severe cachexia/malnutrition
Refeeding syndrome likely
Continue low rate feedings for now.
Ongoing diarrhea, fecal management system in place.
Electrolytes will be repleted, repeat labs at noon today.
Continue low rate tube feedings for now.
Hyponatremia noted, Likely hypervolemic. her weight has trended lower.
-
Continue to monitor off antibiotics.
Completed Abx --> remains on Unasyn after being on Zosyn since 02/08/2024/completed 6 days
Infectious disease continues to follow.
WBC noted, but no fever, culture negative:
All cultures negative.
-
Follow I/Os
Follow daily weights
-
Maintain euglycemia with goal BG 140-180
-
Anemia: Last hemoglobin 7.1.
No further GI bleed. Ongoing diarrhea. No plans for endoscopy/colonoscopy per GI
Status post 1 unit of packed red blood cells for 01/04/2024.
Hemoglobin remains at 7.3.
So far no evidence for active bleeding.
Continue to monitor.
Will transfuse as necessary.
Follow CBC.
-
DVT ppx: SCDs; hold chemical ppx for now given acute gi bleed
-
Difficult situation given her care is directed by the [facility], needs GOC discussions. Prognosis is very poor.
In discussion with multiple physicians, hospice would be appropriate. For now full code per her guardian.

Diagnostic Data
CT A/P with IV contrast 02-08-2024: MARKEDLY LIMITED STUDY DUE TO NUMEROUS FACTORS.
Gross findings suggesting some diffuse colonic and some small bowel wall thickening which could represent enterocolitis. No intestinal obstruction or free air.
CXR 02-08-2024: No acute cardiopulmonary process.
CXR 02-10-2024: Somewhat limited study with patient rotated to the right. Slightly prominent pulmonary interstitial markings bilaterally. Findings could represent interstitial pneumonitis or edema.
No pneumothorax. Likely small right pleural effusion.
CXR 02-12-2024: Patient remains rotated to the right. Right PICC line catheter and nasogastric tube remain in place. Slightly increased hazy opacity at the right lung base, likely progressive pleural effusion. Progressive interstitial thickening is
demonstrated throughout the left hemithorax. Asymmetric interstitial edema versus interstitial infectious or inflammatory changes/pneumonitis. No focal dense consolidation.
-----
Critical Care time 35 mins -- The patient is admitted for acute critical illness for the treatment of vital organ failure and/or prevention of further life-threatening conditions. Total care includes time spent in review of history, physical exam,
medications, hemodynamic/ventilator parameters, laboratory data, imaging and discussion with house staff, pharmacy, respiratory therapy, rn oncology research, and nursing.
Subjective Dataa
Subjective Data
Date of Service:
Date of Service: February 16, 2024
Chief Complaint: Community Living Specialist Follow Up
Subjective:
Patient is nonverbal, unable to communicate.
Remains on vasopressors
Review of Systems
General: Fever (n)
Objective Data
Data Reviewed
Vital Signs / I&O / Oxygen:
Vital Signs
Temp Pulse Resp BP Pulse Ox
97.9 F 66 22 84/56 97
02/16/24 11:19 02/16/24 09:09 02/16/24 06:30 02/16/24 09:09 02/16/24 06:30
Intake and Output
02/15/24 02/16/24 02/17/24
06:59 06:59 06:59
Intake Total 2262.2 / 2366.2 2239.3 / 2383.9 623.0 / 623.0
Output Total 800 / 800
Balance 1462.2 / 1566.2 2239.3 / 2383.9 623.0 / 623.0
SaO2 97
Nasal Cannula flow liters per 2
minute
Physical Exam
General: Comfortable and Other (Cachectic)
HEENT: Normocephalic, Anicteric and Moist Mucous Membranes
Cardiovascular: S1-S2 and Peripheral Edema (negative)
Respiratory: Clear (Anterior lung coronado are clear to auscultation bilaterally), Wheeze (negative), Crackles (Bibasilar heard in posterior lung coronado), Rhonchi ([place] in the left posterior base) and Accessory Resp Muscle Use (negative)
GI: Soft, Non Distended, Non Tender, Normal Bowel Sounds, NG Tube and Other (Rectal trumpet in place, liquid fecal material.)
Neurology: Awake, Alert, Depressed and Other (can nod head and follow simple commands, not extremely conversive)
Skin: Warm, Dry and Bruising (negative)
Labs/Micro/Reports
Microbiology
02/14/24 14:56 Blood/Venous Blood Culture - Preliminary
No Growth in 24 hours- Final report to follow
02/14/24 14:12 Blood/Venous Blood Culture - Preliminary
No Growth in 24 hours- Final report to follow
--- NOTE | 2024-02-16 12:15 | PTCARENOTE ---
No major changes in physical assessment since am. VS documented. Repositioned q2h. Will continue to monitor closely.
[2024-02-16 12:29] LABS: Hemoglobin 7.5 g/dL (12.0-16.0); Mean Corp Hgb Conc. 36.1 g/dL (33.0-37.0); Mean Corpuscular Hgb 31.5 pg (27.0-31.0); Mean Corpuscular Volume 87.4 fL (81.0-99.0); Mean Platelet Volume 10.9 fL (7.4-10.4); Platelet Count 199 10^3/uL (130-400); Red Blood Cell Count 2.38 10^6/uL (4.20-5.40); Red Cell Dist. Width 15.1 % (11.5-14.5); White Blood Cell Count 12.5 10^3/uL (4.8-10.8)
[2024-02-16 12:35] LABS: Hematocrit 20.8 % (37.0-47.0)
[2024-02-16] MEDS: ALBUMIN 5% 250 IV (12:35)
[2024-02-16 12:42] LABS: Blood Urea Nitrogen 13 mg/dl (7-17); Calcium 7.9 mg/dl (8.4-10.2); Carbon Dioxide 21 mmol/L (22-30); Chloride 93 mmol/L (98-107); Estimated Creatinine Clearance 67 ml/min; Glucose 120 mg/dl (70-99); Magnesium 1.9 mg/dl (1.6-2.3); Phosphorus 2.7 mg/dl (2.5-4.5); Potassium 4.8 mmol/L (3.5-5.1); Sodium 115 mmol/L (135-145); eGFR > 60.00
--- NOTE | 2024-02-16 12:43 | W.PN.UPDATE ---
Update Note
Progress Note Update
Impression:
Persistent shock with hypotension responded to IV fluids and requiring vasopressors
Aspiration syndrome
Enterocolitis.
Abnormal urinalysis concern for UTI.
Acute hypoxic respiratory failure.
Acute on chronic anemia with trending down hemoglobin
Hypovolemic hyponatremia.
Hypomagnesemia
Hypoalbuminemia.
Conditions prior to admission:
Severe protein calorie malnutrition with BMI of 13.
Chronic hypertension on midodrine
Developmental delay with dementia.
Schizophrenia/bipolar disorder by history
Chronic ambulatory dysfunction wheelchair-bound.
Plan:
Shock likely multifactorial due to infection as well as hypovolemia
Aspiration syndrome with aspiration pneumonia, enterocolitis. Completed 7-day course of Unasyn. Monitor closely including temperature curve and WBC
Persistent hypotension.
Continue midodrine through nasogastric tube
Attempt to wean off Levophed/vasopressin.
Severe hyponatremia
Sodium trending down to 118.
Suspect combination of intravascular depletion and high ADH state triggered by persistent hypotension.
Check urine sodium/urine osmolarity.
Consider hypertonic solution.
Nephrology consultation
Acute on chronic anemia.
Hemoglobin trended down to sevens.
Transfuse additional 1 unit of packed red blood cells and follow hemoglobin.
Severe aspiration syndrome
Patient remains n.p.o.
NG tube in place for feeding.
Continue aspiration precautions.
Hemodynamically unstable given profound hypotension in terms of PEG tube placement
Severe cachexia and malnutrition
Refeeding syndrome suspected.
Elevated pro CHF BNP.
Chest x-ray with bilateral pleural effusion small.
Echo 08/07 with preserved biventricular function and no significant valvular abnormalities
Monitor volume status closely
Will avoid Lasix with hypotension unless absolutely necessary with decompensated respiratory status.
Goals of care discussion
Tensive discussion with patient's guardian Arti Willis on 02/14.
Patient with severe aspiration syndrome, profound hypotension, severe malnutrition, underlying cognitive disability, multiple readmissions from nursing facility.
Patient's guardian contemplating options of PEG tube placement (currently problematic due to hemodynamic instability).
Reiterated PEG tube if in place and would not improve quality of life and or aspiration risk.
At this point plan will be attempt to pursue hemodynamic stability and further evaluation with hope of nutrition will improve aspiration risk.
--- NOTE | 2024-02-16 13:40 | W.CON.NEPH ---
Consultation
-
Date/Time Consultation Requested: [id number]
Date/Time Consultation Performed: 02/16/2024 1:30 PM
Requesting Provider: Kiley
Performing Provider: Donna
Reason for Consultation: Hyponatremia
Medical History
-
Chief Complaint: Hyponatremia
History of Present Illness:
Patient is a 53y F with PMH significant for developmental delay, schizophrenia and chronic malnutrition who presents to ED from local [place] for evaluation for fever and hypotension. . Patient was previously hospitalized here at in November of
this year for aspiration pneumonia with resultant septic shock. There was discussion of possible PEG tube placement at that time; however, patient seemed to indicate that she did not wish for this and she had sepsis-related thrombocytopenia that
precluded prompt placement in any event. The patient has a history of chronic hypotension maintained on midodrine support. She is also maintained on fluoxetine for her depression and divalproex for seizure. Over the course of her admission she has
developed Vent dependent respiratory failure in the setting of sepsis due to enterocolitis versus possible aspiration pneumonia versus possible UTI. The patient has now developed worsening hyponatremia and pressor dependent hypotension with a serum
sodium level of 115 and nephrology was asked to see this critically ill patient.
Past Medical History
Hypercholesterolemia
seizures
developmental delay
schizophrenia
bipolar disorder
chronic ambulatory dysfunction (wheelchair-bound)
chronic hypotension on midodrine
scoliosis
history of UTI
anxiety
bipolar disorder
history of dysphagia
Social History
Unobtainable due to compromised medical status
Family History
Unobtainable
Allergies / Home Medications
Allergy/AdvReac Type Severity Reaction Status Date / Time
pollen extracts Allergy Stuffy Verified 02/08/24 01:11
nose -
seasonal
lamotrigine [From Lamictal] AdvReac generalized Verified 02/08/24 01:11
weakness,
change in
mental
status
trazodone AdvReac generalized Verified 02/08/24 01:11
weakness,
change in
mental
status
�Medication �Instructions �Recorded �Confirmed �Type
benztropine 0.5 mg tablet 0.5 mg PO TID Neurological 01/19/13 02/08/24 History
Condition
risperidone 1 mg tablet 1 mg PO DAILY Mental Health/Anxiety 10/17/22 02/08/24 History
fluoxetine 20 mg capsule 20 mg PO BID Depression 12/11/22 02/08/24 History
calcium carbonate 500 mg-vitamin 1 tab PO TID vitamin ##0 12/13/22 02/08/24 History
D3 5 mcg (200 unit) tablet (Oyster
Shell Calcium-Vitamin D3)
magnesium oxide 500 mg PO BID 30 days #60 tabs 12/25/22 02/08/24 Rx
midodrine 5 mg tablet 5 mg PO TID@0800,1300,1800 30 days 12/25/22 02/08/24 Rx
#90 tabs
acetaminophen 325 mg tablet 650 mg PO Q4H PRN mild 03/20/23 02/08/24 History
pain/temp>100
alprazolam 0.5 mg tablet 0.5 mg PO DAILY Mental 03/20/23 02/08/24 History
Health/Anxiety
aspirin 81 mg chewable tablet 81 mg PO DAILY #90 tabs 03/24/23 02/08/24 Rx
divalproex 250 mg tablet,delayed 250 mg PO DAILY Seizures 07/25/23 02/08/24 History
release
divalproex 250 mg tablet,delayed 500 mg PO HS Seizures 07/25/23 02/08/24 History
release
multivitamin 1 tab PO DAILY Supplement 07/25/23 02/08/24 History
bisacodyl 10 mg rectal suppository 10 mg RI DAILY PRN if mom 11/24/23 02/08/24 History
(Dulcolax (bisacodyl)) ineffective
magnesium hydroxide 400 mg/5 mL 30 ml PO DAILY PRN constipation 11/24/23 02/08/24 History
oral suspension (Milk of Magnesia)
sodium phosphates 19 gram-7 118 ml RI DAILY PRN if dulcolax 11/24/23 02/08/24 History
gram/118 mL enema (Fleet Enema) ineffective
potassium chloride 10 mEq 10 meq PO HS #30 tabs 12/01/23 02/08/24 Rx
tablet,extended release
Review of Systems
-
Unable to obtain full review of systems at this time due to: Acuity
History Source: Patient
All other systems: Negative unless noted
Constitutional: Weight Loss
EENT: Other (tube feed via nare)
Respiratory: No Symptoms
Cardiac: No Symptoms
Abdomen/GI: No Symptoms
Neurological: Other (confused)
Physical Exam
Vital Signs
Vital Signs
Temp Pulse Resp BP Pulse Ox
97.9 F 70 19 87/52 99
02/16/24 11:19 02/16/24 13:00 02/16/24 13:00 02/16/24 13:00 02/16/24 13:00
Lab Results
WBC 12.5 10^3/uL (4.8-10.8) H 02/16/24 12:15
02/16/24 12:15
02/16/24 12:15
RBC 2.38 10^6/uL (4.20-5.40) L 02/16/24 12:15
Hgb 7.5 g/dL (12.0-16.0) L 02/16/24 12:15
Hgb Cancelled 02/16/24 12:15
Hct 20.8 % (37.0-47.0) L* 02/16/24 12:15
Hct Cancelled 02/16/24 12:15
Plt Count 199 10^3/uL (130-400) 02/16/24 12:15
Sodium 115 mmol/L (135-145) L* 02/16/24 12:15
Potassium 4.8 mmol/L (3.5-5.1) D 02/16/24 12:15
Chloride 93 mmol/L (98-107) L 02/16/24 12:15
Carbon Dioxide 21 mmol/L (22-30) L 02/16/24 12:15
BUN 13 mg/dl (7-17) 02/16/24 12:15
Creatinine 0.5 mg/dL (0.6-1.0) L 02/16/24 12:15
eGFR > 60.00 02/16/24 12:15
Glucose 120 mg/dl (70-99) H 02/16/24 12:15
Calcium 7.9 mg/dl (8.4-10.2) L 02/16/24 12:15
Phosphorus 2.7 mg/dl (2.5-4.5) 02/16/24 12:15
Sfp-U-Qegnsbutjsx Pept 3600 pg/ml 02/14/24 04:16
Albumin 2.1 g/dl (3.5-5.0) L 02/14/24 04:16
Physical Exam
General: Awake, Alert and Nontoxic
HEENT: PERRL, EOMI, Anicteric, Conjunctivae Clear, Ear/Nose Intact (feeding tube), Facial Symmetry, Neck Supple and Trachea Midline
Respiratory: Other (coarse , decreased breath sounds at bases)
Cardiac: S1/S2 and Regular Rate/Rhythm
Breast: Deferred by me
Abdomen: Soft, Nontender and Normal Bowel Sounds (decreased)
Rectal: Deferred by Provider
Musculoskeletal: No Clubbing, No Cyanosis and No Edema
Skin: No Rash
Neuro: Other
Hematologic/Lymphatic: No Cervical Lymphadenopathy, No Submandibular Lymphadenopathy and No Supraclavicular Lymphadenopathy
Psych: Other (confused struggels to answer questions appropriately)
Assessment/Plan
-
Impression:
Hyponatremia (115)
Failure to thrive
Persistent shock with hypotension responded to IV fluids and requiring vasopressors
Aspiration syndrome
Enterocolitis.
Acute hypoxic respiratory failure now resolved
Acute on chronic anemia with trending down hemoglobin
Developmental delay with dementia.
Schizophrenia/bipolar disorder by history
Chronic ambulatory dysfunction wheelchair-bound.
Hypomagnesemia
Hypoalbuminemia.
Severe protein calorie malnutrition with BMI of 13
Plan:
Hyponatremia:
-Likely precipitated by elevated ADH in setting of shock and poor solute intake
-Check urine osmolarity
-place palma
-d/c FWF
-3% hypertonic saline for 20cc/hr at 250cc
-check lytes after infusion completed
-patient critically ill with pressor dependent hypotension and hyponatremia with high risk of neurological sequela
Total Time Spent with Patient (in minutes): 40 critical care time spent with patient
Data Reviewed
-
Radiology: Image Personally Visualized and interpreted (Review chest x-ray on admission which showed right lower lobe opacification)
Labs: Labs Reviewed by me (Including basic metabolic panel CBC)
Old Records: Reviewed (Reviewed old labs from date 12/01/2023 sodium 140)
Critical Care Time (in minutes): 45 minutes
--- NOTE | 2024-02-16 14:30 | PTCARENOTE ---
Nephro consulted. Reese placed (I/O's) and orders rec'd. Urine sent.
[2024-02-16 15:05] LABS: Osmolality Urine 736 mOsm/kg (300-900)
[2024-02-16 15:24] LABS: Urine Sodium 125 mmol/L (30-90)
--- NOTE | 2024-02-16 15:25 | PTCARENOTE ---
Concerned for GIB.... aware....hold [facility].
--- NOTE | 2024-02-16 15:37 | CM ---
CM following re: discharge planning.
Discussed in Rounds, reviewed pt's chart. Per Rounds meeting, continue supportive care, Gastroenterology and ID following.
Pt is a retirement care resident (LTC) at [facility] and is on an MA bed hold, She requires assist of 1 for transfers and is able to feed herself. The patient was placed there last year after her mother, who was her caregiver, passed
away. Pt has a brother who has little involvement in pt's care. Pt has legal guardian: Arti Willis.
D/C plan: return back to [facility] for a intermediate manager care
CM will follow with discharge plan updates as hospitalization progresses
--- NOTE | 2024-02-16 16:00 | PTCARENOTE ---
Abdominal xray done to confirm dhf placement after pt attempted to remove bandaid holding dhf in place. New bandaid applied. Pt reassessed...no major changes. VS documented. Remains on levophed and vasopressin gtts. Will continue to monitor.
--- NOTE | 2024-02-16 16:41 | W.PN.UPDATE ---
Update Note
Progress Note Update
Given lack of response to 1 unit of packed red blood cells.
Discontinue Lovenox prophylaxis
Continue to monitor for GI bleed
Will continue to transfuse as needed.
Poor candidate for any interventions.
[2024-02-16] MEDS: SODIUM CHLORIDE 3% 250 IV (16:50)
--- NOTE | 2024-02-16 20:30 | PTCARENOTE ---
received patient. needs reorientation, quiet and slow speech. SR on monitor. levo and vaso gtts infusing to keep MAP >60. weak pulses. diminished breath sounds, on 2L NC, occasional nonprod. cough. + bowel sounds, FMS intact. R nare Dobbhoff- TF
infusing. palma in place, draining dani urine. CHG bath, oral care provided. pt repositioned, extremities elevated on pillows, foams placed on bony prominences. care ongoing.
[2024-02-16 22:17] LABS: Carbon Dioxide 22 mmol/L (22-30); Chloride 90 mmol/L (98-107); Potassium 4.1 mmol/L (3.5-5.1); Sodium 118 mmol/L (135-145)
[2024-02-17] VITALS (59 sets, daily range): BP systolic 75–109; BP diastolic 40–78; PULSE 82–83; O2SAT 95; BMI 14.1
--- NOTE | 2024-02-17 00:28 | PTCARENOTE ---
systems reviewed, no changes noted. patient repositioned, denies pain. care ongoing.
[2024-02-17] MEDS: LEVOPHED 258 MG IV (05:12)
[2024-02-17 05:17] LABS: Hematocrit 25.1 % (37.0-47.0); Mean Corp Hgb Conc. 35.9 g/dL (33.0-37.0); Mean Corpuscular Hgb 30.9 pg (27.0-31.0); Mean Corpuscular Volume 86.3 fL (81.0-99.0); Platelet Count 175 10^3/uL (130-400); Red Blood Cell Count 2.91 10^6/uL (4.20-5.40); Red Cell Dist. Width 14.6 % (11.5-14.5); White Blood Cell Count 12.5 10^3/uL (4.8-10.8)
--- NOTE | 2024-02-17 05:30 | PTCARENOTE ---
patient reassessed. pt pulled Dobbhoff tube out around 0500, TF off. 3% NS bag finished, AM labs sent. FMS leaking - irrigated. patient cleaned, repositioned, oral care provided. care ongoing.
[2024-02-17 05:42] LABS: Blood Urea Nitrogen 15 mg/dl (7-17); Calcium 7.1 mg/dl (8.4-10.2); Carbon Dioxide 22 mmol/L (22-30); Chloride 96 mmol/L (98-107); Estimated Creatinine Clearance 69 ml/min; Glucose 93 mg/dl (70-99); Potassium 3.8 mmol/L (3.5-5.1); Sodium 120 mmol/L (135-145); eGFR > 60.00
[2024-02-17] MEDS: KCL 50 IV (06:36)
--- NOTE | 2024-02-17 08:19 | W.PN.NEPH.PH ---
Today's Communication / Plan
-
3% saline provided with follow-up electrolytes following infusion
Maintain midodrine and pressor support to keep MAP of 65 or greater
Assessment/Plan
-
Impression:
Hyponatremia (115)
Failure to thrive
Persistent shock with hypotension responded to IV fluids and requiring vasopressors
Aspiration syndrome
Enterocolitis.
Acute hypoxic respiratory failure now resolved
Acute on chronic anemia with trending down hemoglobin
Developmental delay with dementia.
Schizophrenia/bipolar disorder by history
Chronic ambulatory dysfunction wheelchair-bound.
Hypomagnesemia
Hypoalbuminemia.
Severe protein calorie malnutrition with BMI of 13
Plan:
Hyponatremia:
-Likely precipitated by elevated ADH in setting of shock and poor solute intake
-Check urine osmolarity: 736 indicative of SIADH
-Low MAP likely aggravating ADH secretion exacerbated hyponatremia
-Remains on pressor support and midodrine for low MAP, profound hypoalbuminemia noted due to failure to thrive and poor nutritional status
-Maintain palma
-d/c FWF
-3% hypertonic saline for 20cc/hr at 250cc to be given again today
-check lytes after infusion completed
-patient critically ill with pressor dependent hypotension and hyponatremia with high risk of neurological sequela
Total Time Spent with Patient (in minutes): 31 minutes critical care time spent with
-
-
Date of Service: February 17, 2024
CC / HPI / ROS
-
Chief Complaint:
Hyponatremia
History of Present Illness:
Hyponatremia improved from 1 15-120 status post 3%
Hemodynamically labile on pressor support
Hemoglobin improving to 9 following transfusion on 02/16/2024
Review of Systems:
Nonoliguric via phone
Feeding tube via nare
No fevers
Labs
-
Labs:
WBC 12.5 10^3/uL (4.8-10.8) H 02/17/24 05:09
RBC 2.91 10^6/uL (4.20-5.40) L 02/17/24 05:09
Hgb 9.0 g/dL (12.0-16.0) L 02/17/24 05:09
Hct 25.1 % (37.0-47.0) L 02/17/24 05:09
Plt Count 175 10^3/uL (130-400) 02/17/24 05:09
Sodium 120 mmol/L (135-145) L 02/17/24 05:09
Potassium 3.8 mmol/L (3.5-5.1) 02/17/24 05:09
Chloride 96 mmol/L (98-107) L 02/17/24 05:09
Carbon Dioxide 22 mmol/L (22-30) 02/17/24 05:09
BUN 15 mg/dl (7-17) 02/17/24 05:09
Creatinine 0.5 mg/dL (0.6-1.0) L 02/17/24 05:09
eGFR > 60.00 02/17/24 05:09
Glucose 93 mg/dl (70-99) 02/17/24 05:09
Calcium 7.1 mg/dl (8.4-10.2) L 02/17/24 05:09
Vrw-[id number]-Rtkzghkevxp Pept 3600 pg/ml 02/14/24 04:16
Albumin 2.1 g/dl (3.5-5.0) L 02/14/24 04:16
Physical Exam
-
Vital Signs:
Vital Signs
Temp Pulse Resp BP Pulse Ox
98.3 F 69 21 100/65 97
02/17/24 07:34 02/17/24 06:30 02/17/24 06:30 02/17/24 06:30 02/17/24 06:30
Cardiovascular:: Regular rate and rhythm
Respiratory:: Bilateral: CTA
Lung Excursion:: Normal
Abdomen:: Nontender and Soft
Bowel Sounds:: Decreased
Extremity Edema:: None: Bilateral:
Palma Catheter: Yes
Other Findings::
HEENT: feeding tube via nare
--- NOTE | 2024-02-17 08:30 | PTCARENOTE ---
Received patient. needs reorientation, quiet and slow speech. SR on monitor. levo and vaso gtts infusing to keep MAP >60. weak pulses. diminished breath sounds, on 2L NC with SpO2 100%, to room air with SpO2 95%. occasional nonprod. cough. + bowel
sounds, FMS intact. R nare Dobbhoff replaced, awaiting placement verification. palma in place, draining orange urine. CHG bath, oral care provided. pt repositioned, extremities elevated on pillows, foams placed on bony prominences. care ongoing.
[2024-02-17 08:34] LABS: Magnesium 1.5 mg/dl (1.6-2.3); Phosphorus 2.6 mg/dl (2.5-4.5)
--- NOTE | 2024-02-17 08:41 | W.PN.ID1 ---
Date of Service
Date of Service: February 17, 2024
Today's Communication
- not on any cathartics; no fevers, bp actually improved, nonbloody and abdomen nontender - most likely antibiotic associate
- added probiotics
- judicious PRN Imodium particularly as ongoing diarrhea could further exacerbate electrolyte abnormalities
Assessment / Plan
Hypotension, chronic
Fever - resolved
Leukocytosis - improving
Aspiration pneumonia- resolved
- Completed 7 days unasyn; remains without symptoms of relapse off of antibiotics
- Aspiration precaution
Diarrhea - most likely antibiotic associated
- now with FMS
- not on any cathartics; no fevers, bp actually improved, nonbloody and abdomen nontender - most likely antibiotic associate
- added probiotics
- judicious PRN Imodium particularly as ongoing diarrhea could further exacerbate electrolyte abnormalities
Profound Cachexia
- agree with lack of utility of PEG tube
- agree that hospice is a consideration
- recommend outpatient age appropriate cancer screening - follow up with PCP for further management
Hyponatremia
- managment per primary/pulmonary
Overall prognosis guarded
����������������������������������������������������������
Chief Complaint
-: Pneumonia
Subjective / Review of Systems
afebrile
bp stable
persistent mild leukocytosis
Na 120 today
cr 0.5
now with diarrhea
no abdominal pain
Vital Signs / Physical Exam
Vital Signs
Vital Signs
Temp Pulse Resp BP Pulse Ox
98.3 F 69 21 100/65 97
02/17/24 07:34 02/17/24 06:30 02/17/24 06:30 02/17/24 06:30 02/17/24 06:30
Physical Exam
Constitutional: No Acute Distress and Chronically Ill
Cardiovascular: Regular Rate and S1/S2; Negative Murmur or Rub
Pulmonary: Clear and Symmetric; Negative Wheezes or Rales
Gastrointestinal: Soft, Non Tender, Non Distended and Normal Bowel Sounds
Skin: Warm and Dry; Negative Rash or Jaundice
Objective Data
Lab Data
Lab Results
02/17/24 05:09
PT 17.3 Sec (11.4-14.6) H 02/08/24 10:48
INR 1.44 02/08/24 10:48
APTT 37.6 Sec (23.4-35.0) H 02/08/24 10:48
Estimated Creat Clear 69 ml/min 02/17/24 05:09
Lactic Acid 1.6 mmol/L (0.7-2.0) 02/14/24 14:12
Total Bilirubin 0.6 mg/dl (0.2-1.3) 02/11/24 04:49
AST 27 U/L (14-36) 02/11/24 04:49
ALT 13 U/L (0-35) 02/11/24 04:49
Alkaline Phosphatase 66 U/L (38-126) 02/11/24 04:49
Most recent labs reviewed.
Micro Results:
02/14/24 14:56 Blood Culture - Preliminary
Blood/Venous No Growth in 48 hours- Final report to follow
02/14/24 14:12 Blood Culture - Preliminary
Blood/Venous No Growth in 48 hours- Final report to follow
02/16/24 12:15 Blood Culture - Pending
Blood/Venous
02/08/24 01:42 Blood Culture - Final
Blood/Venous No Growth - Final Report
02/08/24 01:42 Blood Culture - Final
Blood/Venous No Growth - Final Report
02/08/24 02:46 Urine Culture - Final
Urine
02/08/24 17:50 Legionella Urinary Antigen - Final
Urine Negative for Legionella pneumophila Serogroup 1 antigen.
A negative result does not rule out the possiblity of
Legionella infection due to other serogroups or species of
Legionella. Clinical correlation is recommended.
Streptococcus pneumoniae Antigen (M - Final
Negative for Streptococcus pneumoniae antigen.
A negative result does not exclude infection with
Streptococcus pneumoniae. Clinical correlation is
recommended.
02/08/24 08:13 Nasal Screen MRSA (PCR) - Final
Nose MRSA not detected - performed by PCR methodology.
02/08/24 01:27 Influenza Types A & B (LANA) - Final
Nasal Swab Negative for Influenza A & B, NAAT
Negative results must be combined with clinical observations
and patient history.
Nucleic Acid Amplification test (NAAT)performed on the
[employer] platform.
Imaging:
02/10/2024 CXR (portable): Study limited secondary to rotation to the right. Slightly prominent pulmonary interstitial markings which could represent interstitial pneumonitis or edema.
[2024-02-17] MEDS: CALCIUM GLUCONATE 130 MG IV (08:55)
[2024-02-17] MEDS: ROBITUSSIN 400 MG TUBE ×3 (09:24→17:20)
[2024-02-17] MEDS: DEPAKENE 250 MG TUBE ×3 (09:24→20:56)
[2024-02-17] MEDS: COGENTIN 0.5 MG TUBE ×2 (09:25→17:21)
[2024-02-17] MEDS: VITAMIN B1 100 MG PO (09:25)
[2024-02-17] MEDS: LOW STRENGTH ASPIRIN 81 MG PO (09:25)
[2024-02-17] MEDS: ProAmatine 15 MG TUBE ×3 (09:25→17:20)
[2024-02-17] MEDS: THERAGRAN 1 TABLET TUBE (09:25)
[2024-02-17] MEDS: PROZAC 20 MG TUBE (09:26)
[2024-02-17] MEDS: RISPERDAL 1 MG TUBE (09:26)
[2024-02-17] MEDS: SODIUM CHLORIDE 3% 250 IV (10:12)
[2024-02-17] MEDS: MAGNESIUM SULFATE 50 IV (10:16)
[2024-02-17] MEDS: PROTONIX IV 40 MG IV ×2 (10:17→21:00)
[2024-02-17] MEDS: NSS (PRESERVATIVE FREE) 10 ML IV ×2 (10:18→21:00)
--- NOTE | 2024-02-17 11:25 | W.PN.INTV ---
Today's Communication / Plan
Recommendations
Discontinue vasopressin
Hopefully can wean off Levophed
3% saline today, discussed with nephrology
Follow sodium
Continue tube feedings at the current rate
Continue to follow electrolytes
Hopefully can transfer to intermediate care unit
Assessment
-
53-year-old F with PMHx of chronic hypotension on midodrine seizures, developmental delay, schizophrenia, bipolar disorder and history of UTI who p/w hypotension from her NH ([facility]) and fever to 103F. Patient is poor historian and unable
to obtain accurate HPI as she mumbles when speaks with incoherent speech. Patient was recently in November of this year for aspiration PNA with septic shock. PEG tube was discussed at that time however this was not done. Patient had
thrombocytopenia as well during that time which precluded prompt placement at that time. In the ER she was febrile to 100.7 �F, pulse rate 92, breathing at 19 breaths/min, hypotensive to 92/60 and saturating 98% on room air. 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
Pt had a wet cough that was reported. Labs showed WBC 8.1, Hb 10.7, platelets 241, sodium 126, chloride 92, glucose 63, calcium 6.9 and albumin level 1.9. Cortisol was checked given concern for possible adrenal insufficiency and her level was 120.
UA showed moderate urine bacteria with 11�15 urine WBC and trace leukocyte esterase. Her COVID antigen is negative. CXR showed no acute cardiopulmonary process, and CT abdomen/pelvis showed diffuse colonic and small bowel wall thickening which
could represent enterocolitis with no intestinal obstruction or free air seen. Patient given calcium gluconate, D50, and 2L of IVF with NS 0.9%. Due to concern for aspiration and sepsis with hypotension, she was TRX to ICU for further care.
Impression:
#Shock - suspected sepsis due to enterocolitis vs aspiration vs UTI in setting of hypoalbuminemia
#Abnormal CT Abd/Pelvis with diffuse colonic and small bowel wall thickening suspicious for enterocolitis
#Acute respiratory failure with hypoxemia on supplemental oxygen
#Acute on chronic anemia due to blood loss now with 'pink' stool concerning for GI bleed - DDx includes brisk UGIB vs LGIB (baseline Hb: 10-12g/dL)
#Hx of thrombocytopenia
#Hypoglycemia
#Hypochloremic, hyponatremia - likely due to reduced PO intake (this is further supported by pt's hypoglycemia in setting of normal random cortisol)
#Hypomagnesemia and hypophosphatemia likely due to refeeding syndrome
#Hypoalbuminemia likely due to malnutrition
#Abnormal urinalysis suspicious for UTI
#Developmental delay with Hx of dementia
#Chronic hypotension on midodrine as an outpatient
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
Hypercholesterolemia
seizures
developmental delay
schizophrenia
bipolar disorder
chronic ambulatory dysfunction (wheelchair-bound)
chronic hypotension on midodrine
scoliosis
history of UTI
anxiety
bipolar disorder
history of dysphagia
Plan:
Very slow improvement
Suspect shock/hypotension due to low vascular tone/hypoalbuminemia. Recovering septic shock.
Vasopressor requirements improving.
-
Levophed 2 mics per minute continue to wean down.
Discontinue vasopressin
Midodrine continue for now.
Florinef tried - but no impact on BP.
-
Status post diuresis. Hold for now.
AM cortisol obtained >120, adequate response
No adrenal insufficiency based on this result
Steroids held.
TSH WNL
Status post albumin on 02/15/2024 and 02/16/2024.
-
Wean down oxygen as able. Not significantly hypoxic. Hypoxemia due to subsegmental atelectasis
CXR showing no acute findings/congestion suggesting volume overload
proBNP 3600.
Aspiration precautions
Diuresis on hold- hypotension.
-
NPO, DHT in place
PEG tube on hold. GI has signed off.
-
Hyponatremia: Improving.
Nephrology following
3% saline given.
-
Severe cachexia/malnutrition
Refeeding syndrome likely
Continue low rate feedings for now.
Ongoing diarrhea, fecal management system in place.
Electrolytes will be repleted, repeat labs at noon today.
Continue low rate tube feedings for now.
Hyponatremia noted, Likely hypervolemic. her weight has trended lower.
-
Continue to monitor off antibiotics.
Completed Abx --> remains on Unasyn after being on Zosyn since 02/08/2024/completed 6 days
Infectious disease continues to follow.
WBC noted, but no fever, culture negative:
All cultures negative.
-
Follow I/Os
Follow daily weights
-
Maintain euglycemia with goal BG 140-180
-
Anemia: Last hemoglobin 7.1.
No further GI bleed. Ongoing diarrhea. No plans for endoscopy/colonoscopy per GI
Status post 2 unit of packed red blood cells.
Hemoglobin currently 9 g/dL.
So far no evidence for active bleeding. Patient has heme positive stools.
Continue to monitor.
Will transfuse as necessary.
Start Protonix IV once a day
Follow CBC.
-
DVT ppx: SCDs; hold chemical ppx for now given acute gi bleed
-
Difficult situation given her care is directed by the [facility], needs GOC discussions. Prognosis is very poor.
In discussion with multiple physicians, hospice would be appropriate. For now full code per her guardian, discussed with Dr. Pardo.
If there is no Pressor titration we will transfer to U.

Diagnostic Data
CT A/P with IV contrast 02-08-2024: MARKEDLY LIMITED STUDY DUE TO NUMEROUS FACTORS.
Gross findings suggesting some diffuse colonic and some small bowel wall thickening which could represent enterocolitis. No intestinal obstruction or free air.
CXR 02-08-2024: No acute cardiopulmonary process.
CXR 02-10-2024: Somewhat limited study with patient rotated to the right. Slightly prominent pulmonary interstitial markings bilaterally. Findings could represent interstitial pneumonitis or edema.
No pneumothorax. Likely small right pleural effusion.
CXR 02-12-2024: Patient remains rotated to the right. Right PICC line catheter and nasogastric tube remain in place. Slightly increased hazy opacity at the right lung base, likely progressive pleural effusion. Progressive interstitial thickening is
demonstrated throughout the left hemithorax. Asymmetric interstitial edema versus interstitial infectious or inflammatory changes/pneumonitis. No focal dense consolidation.
-----
Subjective Dataa
Subjective Data
Date of Service:
Date of Service: February 17, 2024
Chief Complaint: Station Engineer Main Line Follow Up (Hypotension/shock)
Subjective:
No overnight events
Vasopressor requirements improving
Patient unable to provide history
Continues to have diarrhea, fecal management system in place
Review of Systems
General: Other (Unable to obtain due to patient's underlying cognitive impairment)
Objective Data
Data Reviewed
Vital Signs / I&O / Oxygen:
Vital Signs
Temp Pulse Resp BP Pulse Ox
98.3 F 69 21 100/65 97
02/17/24 07:34 02/17/24 06:30 02/17/24 06:30 02/17/24 06:30 02/17/24 06:30
Intake and Output
02/16/24 02/17/24 02/18/24
06:59 06:59 06:59
Intake Total 2239.3 / 2383.9 2495.4 / 2495.4
Output Total 700 / 700
Balance 2239.3 / 2383.9 1795.4 / 1795.4
SaO2 97
Nasal Cannula flow liters per 2
minute
Physical Exam
General: Comfortable and Other (Cachectic)
HEENT: Normocephalic, Anicteric and Moist Mucous Membranes
Cardiovascular: S1-S2 and Peripheral Edema (negative)
Respiratory: Clear (Anterior lung coronado are clear to auscultation bilaterally), Wheeze (negative), Crackles (Bibasilar heard in posterior lung coronado), Rhonchi (Brule in the left posterior base) and Accessory Resp Muscle Use (negative)
GI: Soft, Non Distended, Non Tender, Normal Bowel Sounds, NG Tube and Other (Rectal trumpet in place, liquid fecal material.)
Neurology: Awake, Alert, Depressed and Other (can nod head and follow simple commands, not extremely conversive)
Skin: Warm, Dry and Bruising (negative)
Labs/Micro/Reports
Lab Data
02/17/24 05:09
Microbiology
02/14/24 14:56 Blood/Venous Blood Culture - Preliminary
No Growth in 48 hours- Final report to follow
02/14/24 14:12 Blood/Venous Blood Culture - Preliminary
No Growth in 48 hours- Final report to follow
--- NOTE | 2024-02-17 11:55 | W.PN.HOSP.TC ---
Addendum entered and electronically signed by Bert Pardo MD 02/17/24 14:38:
Patient seen and examined
Discussed with nursing
Discussed with resident, nephrology and tubing tester
Impression:
Persistent shock with hypotension responded to IV fluids and requiring vasopressors
Aspiration syndrome
Enterocolitis.
Abnormal urinalysis concern for UTI.
Acute hypoxic respiratory failure.
Acute on chronic anemia with trending down hemoglobin
Hyponatremia
Hypomagnesemia
Hypoalbuminemia.
Conditions prior to admission:
Severe protein calorie malnutrition with BMI of 13.
Chronic hypertension on midodrine
Developmental delay with dementia.
Schizophrenia/bipolar disorder by history
Chronic ambulatory dysfunction wheelchair-bound.
Plan:
Shock likely multifactorial due to infection as well as hypovolemia
Aspiration syndrome with aspiration pneumonia, enterocolitis. Completed 7-day course of Unasyn. Monitor closely including temperature curve and WBC
Persistent hypotension.
Continue midodrine through nasogastric tube
Attempt to wean off Levophed/vasopressin.
Continue IV albumin
Hyponatremia likely multifactorial with hypovolemia as well as increased ADH state given persistent hypotension
Responding to 3% solution
Follow BMP.
Toxic metabolic encephalopathy likely multifactorial due to infection as well as hyponatremia improving with electrolyte correction.
Severe aspiration syndrome
Patient remains n.p.o.
NG tube in place for feeding.
Continue aspiration precautions.
Hemodynamically unstable given profound hypotension in terms of PEG tube placement
Severe cachexia and malnutrition
Refeeding syndrome suspected.
Continue close electrolyte management.
Hyponatremia likely multifactorial and secondary to hypovolemia, also suspect component of ADH due to prerenal stimuli with persistent hypotension. Possibly related to Depakote.
Hypokalemia, replete and follow
Elevated pro CHF BNP.
Chest x-ray with bilateral pleural effusion small.
Echo 08/07 with preserved biventricular function and no significant valvular abnormalities
Monitor volume status closely
Will avoid Lasix with hypotension unless absolutely necessary with decompensated respiratory status.
Goals of care discussion
Tensive discussion with patient's guardian Arti Willis on 02/14.
Patient with severe aspiration syndrome, profound hypotension, severe malnutrition, underlying cognitive disability, multiple readmissions from nursing facility.
Patient's guardian contemplating options of PEG tube placement (currently problematic due to hemodynamic instability).
Reiterated PEG tube if in place and would not improve quality of life and or aspiration risk.
At this point plan will be attempt to pursue hemodynamic stability and further evaluation with hope of nutrition will improve aspiration risk.
Original Note:
Today's Communication/Plan
-
Plan is to wean off Levophed
3% saline
Monitor BMP
Assessment / Plan
Assessment / Plan
A/P:� Patient is a 53y F with PMH significant for schizophrenia, cognitive impairment, chronic malnutrition and seizure disorder who presents to ED for evaluation of fever and hypotension.
# shock suspect Sepsis secondary to enterocolitis versus aspiration pneumonitis
# Chronic dysphagia
Continue midodrine
Attempt to wean off Levophed
Completed course of antibiotics monitor closely including WBC
Hemodynamically unstable for PEG tube placement
Aspiration precautions
N.p.o., NG tube in place for feeding
Consider palliative care/hospice
Anemia
Status post 2 unit of PRBC
Hemoglobin currently 9
Follow CBC
#Hyponatremia
Nephrology following
3% saline administered
Improving
#Hypokalemia
#Hypomagnesemia
#Hypocalcemia
-Replete
�
#Seizure Disorder
�- No evidence of recent / active seizures.
�- Continue AEDs without changes / interruption.
�- Monitor for any breakthrough seizure activity.
#Schizophrenia
Bipolar Disorder
Cognitive Impairment
�- Stable.� Continue risperidone and benztropine.
�- Hold SSRI acutely given hyponatremia.
�-Watch for adverse effects on psych meds
DVT Prophylaxis:�LMWH
Code Status:� Full
Anticipated Discharge: > 48 hours
Objective Data
-
Labs:
Laboratory Results
02/17/24 02/17/24
05:09 18:00
WBC 12.5 H
Hgb 9.0 L
Hct 25.1 L
Plt Count 175
Sodium 120 L Pending
Potassium 3.8 Pending
Chloride 96 L Pending
Carbon Dioxide 22 Pending
BUN 15
Creatinine 0.5 L
Glucose 93
Calcium 7.1 L
Vital Signs:
Vital Signs
Temp Pulse Resp BP Pulse Ox
97.9 F 85 26 88/56 95
02/17/24 11:42 02/17/24 11:30 02/17/24 11:30 02/17/24 11:30 02/17/24 11:30
I&O
02/16/24 02/17/24 02/18/24
06:59 06:59 06:59
Intake Total 2239.3 / 2383.9 2495.4 / 2508.9 196.8 / 196.8
Output Total 700 / 700 115 / 115
Balance 2239.3 / 2383.9 1795.4 / 1808.9 81.8 / 81.8
Review of Systems
-
All other systems: Reviewed and negative (Except as documented)
Physical Exam
-
General: Appears Chronically Ill
Cardiac: Regular Rhythm and S1/S2
GI: Soft, Nontender, Nondistended and Normal Bowel Sounds
Skin: Warm and Dry
Neuro: Awake
Data Reviewed
-
Labs: Labs Reviewed by me and Discussed with Physician
[2024-02-17] MEDS: IMODIUM 2 MG PO (12:09)
[2024-02-17] MEDS: VISBIOME 2 CAP PO (12:09)
--- NOTE | 2024-02-17 14:42 | CM ---
CM following re: discharge planning.
Discussed in Rounds, reviewed pt's chart. Per Rounds meeting, continue supportive care, continue pressors, Dobbhoff- TF. Gastroenterology and ID following.
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 The patient was placed there last year after her mother, who was her caregiver, passed
away. Pt has legal guardian: Arti Lazaro.
D/C plan: return back to [facility] for a alf care
CM will follow with discharge plan updates as hospitalization progresses
--- NOTE | 2024-02-17 18:14 | PTCARENOTE ---
dobhoff removed by pt. Replaced and measures 65cm. Awaiting x-ray verification.
[2024-02-17 18:29] LABS: Carbon Dioxide 23 mmol/L (22-30); Chloride 101 mmol/L (98-107); Potassium 3.9 mmol/L (3.5-5.1); Sodium 131 mmol/L (135-145)
--- NOTE | 2024-02-17 19:55 | PTCARENOTE ---
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 RA Sat 98%, weak ENGINEERING TECHNICIAN cough, dht in place- awaiting xray confirmation to resume TF/admin meds. pt calm, watching TV.
will monitor.
--- NOTE | 2024-02-17 20:24 | PTCARENOTE ---
pt found with dht in hand removed. BDoughertyNP aware. 3% saline dose also stopped at this time per LINEMAN A CLASS.
[2024-02-17] MEDS: ROBITUSSIN TUBE (20:56)
[2024-02-17] MEDS: COGENTIN TUBE (20:56)
[2024-02-17] MEDS: PROZAC TUBE (20:56)
[2024-02-17] MEDS: 0.45%NACL 1000 IV (23:00)
[2024-02-17] MEDS: OFIRMEV 100 IV (23:14)
--- NOTE | 2024-02-17 23:30 | PTCARENOTE ---
temp 101.5F, BDoughertyNP aware, Ofirmev x 1 dose given.
[2024-02-18] VITALS (39 sets, daily range): BP systolic 56–116; BP diastolic 27–78; BMI 14.3
[2024-02-18 04:28] LABS: Hematocrit 28.3 % (37.0-47.0); Hemoglobin 10.3 g/dL (12.0-16.0); Mean Corp Hgb Conc. 36.4 g/dL (33.0-37.0); Mean Corpuscular Hgb 31.3 pg (27.0-31.0); Mean Platelet Volume 10.9 fL (7.4-10.4); Platelet Count 275 10^3/uL (130-400); Red Blood Cell Count 3.29 10^6/uL (4.20-5.40); Red Cell Dist. Width 15.5 % (11.5-14.5); White Blood Cell Count 16.9 10^3/uL (4.8-10.8)
[2024-02-18 04:41] LABS: Blood Urea Nitrogen 15 mg/dl (7-17); Calcium 8.2 mg/dl (8.4-10.2); Carbon Dioxide 22 mmol/L (22-30); Chloride 107 mmol/L (98-107); Estimated Creatinine Clearance 69 ml/min; Glucose 67 mg/dl (70-99); Potassium 3.3 mmol/L (3.5-5.1); Sodium 132 mmol/L (135-145); eGFR > 60.00
[2024-02-18] MEDS: LEVOPHED 258 MG IV (05:25)
[2024-02-18] MEDS: KCL 100 IV (05:28)
--- NOTE | 2024-02-18 05:34 | PTCARENOTE ---
no changes in assessment.
[2024-02-18 07:09] LABS: Glucose - Point of Care 61 mg/dl (70-99)
--- NOTE | 2024-02-18 07:22 | PTCARENOTE ---
pt received from previous rn- alert and oriented to self, able to follow simple commands. nsr on monitor, on room air. remains on 10mcg of levo, k rider infusing. iv d/c. Dr. Shanita Sanchez aware that pt pulled out dubhoff overnight and feeds are on
hold and that blood sugar was 61- 1/2 amp d50 given. recheck sugar 110. pt asymptomatic. palma draining yellow urine. fms intact. turned and repositioned. oral care provided. all safety precautions in place, call castellanos within reach.
[2024-02-18 07:29] LABS: Glucose - Point of Care 110 mg/dl (70-99)
[2024-02-18] MEDS: DEXTROSE 50% SYRINGE 12.5 GRAMS IV (08:39)
[2024-02-18] MEDS: ROBITUSSIN 400 MG TUBE (08:40)
[2024-02-18] MEDS: IMODIUM 2 MG PO (08:40)
[2024-02-18] MEDS: ProAmatine 15 MG TUBE (08:40)
[2024-02-18] MEDS: VISBIOME 2 CAP PO (08:40)
[2024-02-18] MEDS: PROTONIX IV 40 MG IV (08:40)
[2024-02-18] MEDS: NSS (PRESERVATIVE FREE) 10 ML IV (08:40)
[2024-02-18] MEDS: VITAMIN B1 100 MG PO (08:40)
[2024-02-18] MEDS: THERAGRAN 1 TABLET TUBE (08:40)
[2024-02-18] MEDS: LOW STRENGTH ASPIRIN 81 MG PO (08:40)
[2024-02-18] MEDS: DEPAKENE 250 MG TUBE (08:41)
[2024-02-18] MEDS: PROZAC 20 MG TUBE (08:41)
[2024-02-18] MEDS: COGENTIN 0.5 MG TUBE (08:41)
[2024-02-18] MEDS: RISPERDAL 1 MG TUBE (08:41)
--- NOTE | 2024-02-18 08:50 | W.PN.ID1 ---
Date of Service
Date of Service: February 18, 2024
Today's Communication
progressive septic shock
broad workup
oral vanc/metro for now pending the C diff ag - if negative stop
zosyn
Assessment / Plan
Progressive Shock - likely septic
Fever - relapsed
Leukocytosis - increased
Diarrhea
Aspiration pneumonia- resolved
- C diff ag
- blood cultures x2
- UA reflex to culture
- CXR yesterday - r basilar opacification - effusion vs atelectasis/pneumonia
- chest US for size
- sputum culture if able (RN doubtful reports minimal nonproductive cough)
- AXR nonobstructive bowel gas pattern
- resend covid ag
- mrsa PCR; was negative 02/07
- stopped Imodium
- empiric oral vancomycin/IV metronidazole pending results
- zosyn for now, will add IV vancomycin if mrsa screen has become positive
Profound Cachexia
- agree with lack of utility of PEG tube
- agree that hospice is a consideration
- recommend outpatient age appropriate cancer screening - follow up with PCP for further management
Hyponatremia
- managment per primary/pulmonary
Prognosis remains guarded
����������������������������������������������������������
Chief Complaint
-: Pneumonia
Subjective / Review of Systems
developed fever to 101.5 on core Ts
pressor requirements increasing
increasing wbc count
increasing plt
cr 0.5
Na increased
Cr stable
CXR this am: no infiltrates
AXRs yesterday - nonobstructive bowel gas pattern
no wounds
diarrhea ongoing - small amounts
no redness or drainage from the line
minimal nonproductive cough
abdomen/suprapubic tenderness noted
urine is clear
Vital Signs / Physical Exam
Vital Signs
Vital Signs
Temp Pulse Resp BP Pulse Ox
97.6 F 81 24 87/59 97
02/18/24 07:11 02/18/24 07:30 02/18/24 07:30 02/18/24 07:30 02/18/24 07:30
Objective Data
Lab Data
Lab Results
02/18/24 04:18
PT 17.3 Sec (11.4-14.6) H 02/08/24 10:48
INR 1.44 02/08/24 10:48
APTT 37.6 Sec (23.4-35.0) H 02/08/24 10:48
Estimated Creat Clear 69 ml/min 02/18/24 04:18
Lactic Acid 1.6 mmol/L (0.7-2.0) 02/14/24 14:12
Total Bilirubin 0.6 mg/dl (0.2-1.3) 02/11/24 04:49
AST 27 U/L (14-36) 02/11/24 04:49
ALT 13 U/L (0-35) 02/11/24 04:49
Alkaline Phosphatase 66 U/L (38-126) 02/11/24 04:49
Most recent labs reviewed.
Micro Results:
02/14/24 14:56 Blood Culture - Preliminary
Blood/Venous No Growth in 72 hours- Final report to follow
02/14/24 14:12 Blood Culture - Preliminary
Blood/Venous No Growth in 72 hours- Final report to follow
02/16/24 12:15 Blood Culture - Preliminary
Blood/Venous No Growth in 24 hours- Final report to follow
02/08/24 01:42 Blood Culture - Final
Blood/Venous No Growth - Final Report
02/08/24 01:42 Blood Culture - Final
Blood/Venous No Growth - Final Report
02/08/24 02:46 Urine Culture - Final
Urine
02/08/24 17:50 Legionella Urinary Antigen - Final
Urine Negative for Legionella pneumophila Serogroup 1 antigen.
A negative result does not rule out the possiblity of
Legionella infection due to other serogroups or species of
Legionella. Clinical correlation is recommended.
Streptococcus pneumoniae Antigen (M - Final
Negative for Streptococcus pneumoniae antigen.
A negative result does not exclude infection with
Streptococcus pneumoniae. Clinical correlation is
recommended.
02/08/24 08:13 Nasal Screen MRSA (PCR) - Final
Nose MRSA not detected - performed by PCR methodology.
02/08/24 01:27 Influenza Types A & B (LANA) - Final
Nasal Swab Negative for Influenza A & B, NAAT
Negative results must be combined with clinical observations
and patient history.
Nucleic Acid Amplification test (NAAT)performed on the
[employer] platform.
Imaging:
02/10/2024 CXR (portable): Study limited secondary to rotation to the right. Slightly prominent pulmonary interstitial markings which could represent interstitial pneumonitis or edema.
[2024-02-18] MEDS: SODIUM CHLORIDE 1009.625 MEQ IV (09:23)
[2024-02-18 10:10] LABS: COVID-19 Antigen Negative (Negative)
[2024-02-18 10:22] LABS: Urine Albumin Trace (Neg - Trace); Urine Bilirubin Negative (Negative); Urine Character Clear (Clear); Urine Color Yellow; Urine Glucose 1+ (Negative); Urine Ketone Negative (Negative); Urine Leukocyte 2+ (Negative); Urine Nitrite Positive (Negative); Urine Occult Blood 1+ (Negative); Urine Urobilinogen Negative (Neg - 1+)
[2024-02-18] MEDS: FLAGYL 500 MG 100 IV (10:25)
[2024-02-18] MEDS: ZOSYN 100 IV (10:25)
[2024-02-18] MEDS: PITRESSIN 100 IV (10:26)
[2024-02-18 10:50] LABS: Urine Amorphous Seen; Urine Mucus Few
[2024-02-18 10:52] LABS: Urine Bacteria Many (Negative); Urine Red Blood Cell 0-2 /HPF (0-2); Urine White Cell 16-20 /HPF (0-5)
--- NOTE | 2024-02-18 10:58 | W.PN.NEPH.PH ---
Today's Communication / Plan
-
observe
Assessment/Plan
-
Impression:
Hyponatremia (115)
Failure to thrive
Persistent shock with hypotension responded to IV fluids and requiring vasopressors
Aspiration syndrome
Enterocolitis.
Acute hypoxic respiratory failure now resolved
Acute on chronic anemia with trending down hemoglobin
Developmental delay with dementia.
Schizophrenia/bipolar disorder by history
Chronic ambulatory dysfunction wheelchair-bound.
Hypomagnesemia
Hypoalbuminemia.
Severe protein calorie malnutrition with BMI of 13
Plan:
Hyponatremia:
-Likely precipitated by elevated ADH in setting of shock and poor solute intake
-Check urine osmolarity: 736 indicative of SIADH
-Low MAP likely aggravating ADH secretion exacerbated hyponatremia
-Remains on pressor support and midodrine for low MAP, profound hypoalbuminemia noted due to failure to thrive and poor nutritional status
sodium improved to 132 today, on hypotonic fluids
repalce k
noted that she will be changing to comfort care
-
-
Date of Service: February 18, 2024
CC / HPI / ROS
-
Chief Complaint:
Hyponatremia
History of Present Illness:
Hyponatremia improved from 120-132 status post 3%
Hemodynamically labile on pressor support
Hemoglobin improving to 1.3 following transfusion on 02/16/2024
Review of Systems:
Nonoliguric via palma
Feeding tube via nare
febrile last night
Labs
-
Labs:
WBC 16.9 10^3/uL (4.8-10.8) H 02/18/24 04:18
RBC 3.29 10^6/uL (4.20-5.40) L 02/18/24 04:18
Hgb 10.3 g/dL (12.0-16.0) L 02/18/24 04:18
Hct 28.3 % (37.0-47.0) L 02/18/24 04:18
Plt Count 275 10^3/uL (130-400) D 02/18/24 04:18
Potassium 3.3 mmol/L (3.5-5.1) L 02/18/24 04:18
Chloride 107 mmol/L (98-107) 02/18/24 04:18
Carbon Dioxide 22 mmol/L (22-30) 02/18/24 04:18
BUN 15 mg/dl (7-17) 02/18/24 04:18
Creatinine 0.5 mg/dL (0.6-1.0) L 02/18/24 04:18
eGFR > 60.00 02/18/24 04:18
Glucose 67 mg/dl (70-99) L 02/18/24 04:18
Calcium 8.2 mg/dl (8.4-10.2) L 02/18/24 04:18
Qqg-R-Oplutlbfvyn Pept 3600 pg/ml 02/14/24 04:16
Albumin 2.1 g/dl (3.5-5.0) L 02/14/24 04:16
Physical Exam
-
Vital Signs:
Vital Signs
Temp Pulse Resp BP Pulse Ox
97.6 F 93 28 89/73 98
02/18/24 07:11 02/18/24 09:30 02/18/24 09:30 02/18/24 09:30 02/18/24 09:30
Cardiovascular:: Regular rate and rhythm
Respiratory:: Bilateral: CTA (decreased)
Lung Excursion:: Normal
Abdomen:: Nontender and Soft
Extremity Edema:: None: Bilateral: (trace)
Palma Catheter: Yes
--- NOTE | 2024-02-18 11:24 | PTCARENOTE ---
left nare dobhoff inserted and confirmed with auscultation and xray. tube feeds briefly restarted. law cultured as per order. plan of care discussed with Dr. Blair and Dr. Kolb- pt ordered dnr comfort care. dubhoff removed. iv and po meds
d/c. pt remains alert at this time and on room air. denies pain or discomfort.
[2024-02-18 11:27] LABS: Magnesium 1.7 mg/dl (1.6-2.3); Phosphorus 3.3 mg/dl (2.5-4.5); Sodium 132 mmol/L (135-145)
--- NOTE | 2024-02-18 11:44 | W.PN.INTV ---
Today's Communication / Plan
Recommendations
Focus on comfort
Discontinue all vasopressors
Sign off
Assessment
-
53-year-old F with PMHx of chronic hypotension on midodrine seizures, developmental delay, schizophrenia, bipolar disorder and history of UTI who p/w hypotension from her NH ([facility]) and fever to 103F. Patient is poor historian and unable
to obtain accurate HPI as she mumbles when speaks with incoherent speech. Patient was recently in November of this year for aspiration PNA with septic shock. PEG tube was discussed at that time however this was not done. Patient had
thrombocytopenia as well during that time which precluded prompt placement at that time. In the ER she was febrile to 100.7 �F, pulse rate 92, breathing at 19 breaths/min, hypotensive to 92/60 and saturating 98% on room air. 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
Pt had a wet cough that was reported. Labs showed WBC 8.1, Hb 10.7, platelets 241, sodium 126, chloride 92, glucose 63, calcium 6.9 and albumin level 1.9. Cortisol was checked given concern for possible adrenal insufficiency and her level was 120.
UA showed moderate urine bacteria with 11�15 urine WBC and trace leukocyte esterase. Her COVID antigen is negative. CXR showed no acute cardiopulmonary process, and CT abdomen/pelvis showed diffuse colonic and small bowel wall thickening which
could represent enterocolitis with no intestinal obstruction or free air seen. Patient given calcium gluconate, D50, and 2L of IVF with NS 0.9%. Due to concern for aspiration and sepsis with hypotension, she was TRX to ICU for further care.
Impression:
#Shock - suspected sepsis due to enterocolitis vs aspiration vs UTI in setting of hypoalbuminemia
#Abnormal CT Abd/Pelvis with diffuse colonic and small bowel wall thickening suspicious for enterocolitis
#Acute respiratory failure with hypoxemia on supplemental oxygen
#Acute on chronic anemia due to blood loss now with 'pink' stool concerning for GI bleed - DDx includes brisk UGIB vs LGIB (baseline Hb: 10-12g/dL)
#Hx of thrombocytopenia
#Hypoglycemia
#Hypochloremic, hyponatremia - likely due to reduced PO intake (this is further supported by pt's hypoglycemia in setting of normal random cortisol)
#Hypomagnesemia and hypophosphatemia likely due to refeeding syndrome
#Hypoalbuminemia likely due to malnutrition
#Abnormal urinalysis suspicious for UTI
#Developmental delay with Hx of dementia
#Chronic hypotension on midodrine as an outpatient
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
Hypercholesterolemia
seizures
developmental delay
schizophrenia
bipolar disorder
chronic ambulatory dysfunction (wheelchair-bound)
chronic hypotension on midodrine
scoliosis
history of UTI
anxiety
bipolar disorder
history of dysphagia
Plan:
Unfortunately, overnight worsening condition.
Febrile, worsening vasopressor requirements now Levophed up to 10.
Antibiotics started
Cultures were sent
-
Discussed with Dr. Pardo earlier today, it appears that now that she is heading towards comfort care.
Will focus on comfort for now
No additional aggressive care from the critical care perspective
Patient eventually will be transferred to [facility]
-
Wean down oxygen as able. Not significantly hypoxic. Hypoxemia due to subsegmental atelectasis
CXR showing no acute findings/congestion suggesting volume overload
proBNP 3600.
Aspiration precautions
Diuresis on hold- hypotension.
-
NPO, DHT in place
PEG tube on hold. GI has signed off.
-
Hyponatremia: Improving.
Nephrology following
Status post 3% saline.
-
Severe cachexia/malnutrition
Comfort measures as above.
-
Anemia: Last hemoglobin 7.1.
Likely lower GI bleed
Not amenable for intervention.
-
Discussed with Dr. Pardo, patient now being transferred to comfort care.
Critical care team will sign off.

Diagnostic Data
CT A/P with IV contrast 02-08-2024: MARKEDLY LIMITED STUDY DUE TO NUMEROUS FACTORS.
Gross findings suggesting some diffuse colonic and some small bowel wall thickening which could represent enterocolitis. No intestinal obstruction or free air.
CXR 02-08-2024: No acute cardiopulmonary process.
CXR 02-10-2024: Somewhat limited study with patient rotated to the right. Slightly prominent pulmonary interstitial markings bilaterally. Findings could represent interstitial pneumonitis or edema.
No pneumothorax. Likely small right pleural effusion.
CXR 02-12-2024: Patient remains rotated to the right. Right PICC line catheter and nasogastric tube remain in place. Slightly increased hazy opacity at the right lung base, likely progressive pleural effusion. Progressive interstitial thickening is
demonstrated throughout the left hemithorax. Asymmetric interstitial edema versus interstitial infectious or inflammatory changes/pneumonitis. No focal dense consolidation.
-----
Subjective Dataa
Subjective Data
Date of Service:
Date of Service: February 18, 2024
Chief Complaint: Customer Service Supervisor Follow Up (Hypotension/shock)
Subjective:
Unable to provide history
Overnight febrile, increased vasopressor requirements. Ongoing diarrhea
Review of Systems
General: Other (Difficult to obtain)
Objective Data
Data Reviewed
Vital Signs / I&O / Oxygen:
Vital Signs
Temp Pulse Resp BP Pulse Ox
99.1 F 93 28 89/73 98
02/18/24 11:36 02/18/24 09:30 02/18/24 09:30 02/18/24 09:30 02/18/24 09:30
Intake and Output
02/17/24 02/18/24 02/19/24
06:59 06:59 06:59
Intake Total 2495.4 / 2508.9 1223.4 / 1267.2 306.4 / 306.4
Output Total 700 / 700 2685 / 2685 150 / 150
Balance 1795.4 / 1808.9 -1461.6 / -1417.8 156.4 / 156.4
SaO2 98
Nasal Cannula flow liters per 2
minute
Physical Exam
General: Comfortable and Other (Cachectic)
HEENT: Normocephalic, Anicteric and Moist Mucous Membranes
Cardiovascular: S1-S2 and Peripheral Edema (negative)
Respiratory: Clear (Anterior lung coronado are clear to auscultation bilaterally), Wheeze (negative), Crackles (Bibasilar heard in posterior lung coronado), Rhonchi (Benzie in the left posterior base) and Accessory Resp Muscle Use (negative)
GI: Soft, Non Distended, Non Tender, Normal Bowel Sounds, NG Tube and Other (Rectal trumpet in place, liquid fecal material.)
Neurology: Awake, Alert, Depressed and Other (can nod head and follow simple commands, not extremely conversive)
Skin: Warm, Dry and Bruising (negative)
Labs/Micro/Reports
Lab Data
02/18/24 04:18
02/18/24 10:53
Microbiology
02/18/24 09:34 Feces/Stool C. difficile GDH Antigen & Toxins - Final
Negative for toxigenic C.difficile
02/14/24 14:56 Blood/Venous Blood Culture - Preliminary
No Growth in 72 hours- Final report to follow
02/14/24 14:12 Blood/Venous Blood Culture - Preliminary
No Growth in 72 hours- Final report to follow
02/16/24 12:15 Blood/Venous Blood Culture - Preliminary
No Growth in 24 hours- Final report to follow
--- NOTE | 2024-02-18 11:50 | CM ---
CM following re: discharge planning.
Discussed in Rounds, reviewed pt's chart. Per Rounds meeting, continue supportive care, continue pressors, Dobbhoff- TF. Gastroenterology and ID following.
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 The patient was placed there last year after her mother, who was her caregiver, passed
away. Pt has legal guardian: Arti Lazaro.
D/C plan: return back to [facility] for a group home care
CM will follow with discharge plan updates as hospitalization progresses
[2024-02-18] MEDS: MORPHINE SULFATE 2 MG IV ×2 (13:29→22:47)
--- NOTE | 2024-02-18 13:30 | W.PN.UPDATE ---
Update Note
Progress Note Update
Patient seen and examined
Discussed with resident
Discussed with multiple services and nursing
Impression:
Persistent shock with hypotension responded to IV fluids and requiring vasopressors
Aspiration syndrome
Enterocolitis.
Abnormal urinalysis concern for UTI.
Acute hypoxic respiratory failure.
Acute on chronic anemia with trending down hemoglobin
Hyponatremia
Hypomagnesemia
Hypoalbuminemia.
Conditions prior to admission:
Severe protein calorie malnutrition with BMI of 13.
Chronic hypertension on midodrine
Developmental delay with dementia.
Schizophrenia/bipolar disorder by history
Chronic ambulatory dysfunction wheelchair-bound.
Plan:
Rapidly deteriorating clinical condition with recurrent fever, sepsis and septic shock requiring multiple vasopressors including midodrine.
No response to antibiotics, aggressive treatment with vasopressors, IV fluids, albumin, transfusion
Mental status remains fluctuant. Patient reported misplacing nasogastric tube required replacement earlier.
Extensive discussion with patient's power of corporate counsel over the phone.
Given progressively deteriorating clinical course, multiple comorbidities not limited to extensive psychiatric illness, severe deconditioning with cachexia and BMI of 14, plan is to transition to comfort care.
Antibiotics, IV fluids, nasogastric feeding, vasopressors will be discontinued
Continue comfort care including IV morphine, lorazepam, bowel regimen
Allow comfort feeding
--- NOTE | 2024-02-19 00:18 | PTCARENOTE ---
Pt. on comfort care. Resting in bed. Morphine given for abdominal pain per pt. Bathed. FMS and palma in place.
[2024-02-19 00:19] VITALS: BP 75/39
[2024-02-19 07:08] VITALS: BP 59/30
--- NOTE | 2024-02-19 08:16 | PTCARENOTE ---
pt comfort care, no signs of pain- pt denies pain at this time. turned and repositioned for comfort. fms and palma in place.
--- NOTE | 2024-02-19 10:56 | W.PN.HOSP.TC ---
Today's Communication/Plan
-
Continue comfort care
Assessment / Plan
Assessment / Plan
Impression:
Persistent shock with hypotension responded to IV fluids and requiring vasopressors
Aspiration syndrome
Enterocolitis.
Abnormal urinalysis concern for UTI.
Acute hypoxic respiratory failure.
Acute on chronic anemia with trending down hemoglobin
Hyponatremia
Hypomagnesemia
Hypoalbuminemia.
Conditions prior to admission:
Severe protein calorie malnutrition with BMI of 13.
Chronic hypertension on midodrine
Developmental delay with dementia.
Schizophrenia/bipolar disorder by history
Chronic ambulatory dysfunction wheelchair-bound.
Plan:
Rapidly deteriorating clinical condition with recurrent fever, sepsis and septic shock requiring multiple vasopressors including midodrine.
No response to antibiotics, aggressive treatment with vasopressors, IV fluids, albumin, transfusion
Mental status remains fluctuant. Patient reported misplacing nasogastric tube required replacement earlier.
Extensive discussion with patient's power of longwall foreman over the phone.
Given progressively deteriorating clinical course, multiple comorbidities not limited to extensive psychiatric illness, severe deconditioning with cachexia and BMI of 14, plan is to transition to comfort care.
Antibiotics, IV fluids, nasogastric feeding, vasopressors will be discontinued
Continue comfort care including IV morphine, lorazepam, bowel regimen
Allow comfort feeding
Anticipated Discharge: 24 - 48 hours
Subjective/Interval History
-
Date of Service: February 19, 2024
Objective Data
-
Vital Signs:
Vital Signs
Temp Pulse Resp BP Pulse Ox
97.6 F 88 16 59/30 94
02/19/24 07:31 02/19/24 08:00 02/19/24 08:00 02/19/24 07:08 02/19/24 08:12
I&O
02/18/24 02/19/24 02/20/24
06:59 06:59 06:59
Intake Total 1223.4 / 1267.2 306.4 / 306.4
Output Total 2685 / 2685 150 / 150
Balance -1461.6 / -1417.8 156.4 / 156.4
Physical Exam
-
General: Well Developed and No Apparent Distress
HEENT: Normocephalic, Atraumatic and Moist Mucous Membranes
Respiratory: Clear to Auscultation
Cardiac: Regular Rhythm and S1/S2; Negative Murmur, Rub or Gallop
GI: Soft, Nontender, Nondistended and Normal Bowel Sounds; Negative Organomegaly
Rectal: Deferred by Provider
Musculoskeletal: No Clubbing, No Cyanosis and No Edema
Skin: Negative Rash
Neuro: Awake, Alert and Nonfocal/Grossly Intact
[2024-02-19 15:30] VITALS: BP 90/53
--- NOTE | 2024-02-19 15:57 | PTCARENOTE ---
fms removed, report given to iona gandara on 2N.
--- NOTE | 2024-02-19 16:29 | PTCARENOTE ---
Rec'd pt from ICU with orders for comfort measures and code statis of a DNR. Report obtained from ICU nurse. Pt awake and responsive to verbal command via soft spoken garbled words. Words are difficult to make out. VSS stable. Pt on RA at 95.
General anasarca +1, hands and knees contracted. Foams on for protection to all areas of concern. Skin intact. Skin cool, and pale. Reese in place. No c/o pain or facial grimaces. Pt on a [employer] air mattress for comfort. Will cont to
monitor.
[2024-02-19 19:30] VITALS: BP 90/55
[2024-02-20 07:00] VITALS: BP 80/43
[2024-02-20 11:00] VITALS: BP 67/37
--- NOTE | 2024-02-20 12:26 | CM ---
Addendum entered by Sully Veronica RN 02/21/24 14:07:
Plan: Discharge
Call report to:
Fax report to:
Medical necessity and transport on chart.
Original Note:
CM sent updated clinical to [facility] via [facility]. Per chart review, plan for return once medically stable.
--- NOTE | 2024-02-20 13:38 | W.PN.HOSP.TC ---
Today's Communication/Plan
-
comfort care
Assessment / Plan
Assessment / Plan
Impression:
Persistent shock with hypotension responded to IV fluids and requiring vasopressors
Aspiration syndrome
Enterocolitis.
Abnormal urinalysis concern for UTI.
Acute hypoxic respiratory failure.
Acute on chronic anemia with trending down hemoglobin
Hyponatremia
Hypomagnesemia
Hypoalbuminemia.
Conditions prior to admission:
Severe protein calorie malnutrition with BMI of 13.
Chronic hypertension on midodrine
Developmental delay with dementia.
Schizophrenia/bipolar disorder by history
Chronic ambulatory dysfunction wheelchair-bound.
Plan:
Rapidly deteriorating clinical condition with recurrent fever, sepsis and septic shock requiring multiple vasopressors including midodrine.
No response to antibiotics, aggressive treatment with vasopressors, IV fluids, albumin, transfusion
Mental status remains fluctuant. Patient reported misplacing nasogastric tube required replacement earlier.
Extensive discussion with patient's power of commercial attorney over the phone.
Given progressively deteriorating clinical course, multiple comorbidities not limited to extensive psychiatric illness, severe deconditioning with cachexia and BMI of 14, plan is to transition to comfort care.
Antibiotics, IV fluids, nasogastric feeding, vasopressors will be discontinued
Continue comfort care including IV morphine, lorazepam, bowel regimen
Allow comfort feeding
Anticipated Discharge: 24 - 48 hours
Subjective/Interval History
-
Date of Service: February 20, 2024
Objective Data
-
Vital Signs:
Vital Signs
Temp Pulse Resp BP Pulse Ox
98.8 F 91 16 67/37 92
02/20/24 11:00 02/20/24 11:00 02/20/24 11:00 02/20/24 11:00 02/20/24 11:00
I&O
02/19/24 02/20/24 02/21/24
06:59 06:59 06:59
Intake Total 306.4 / 306.4 570 / 570
Output Total 150 / 150 350 / 350
Balance 156.4 / 156.4 220 / 220
Physical Exam
-
General: Well Developed and No Apparent Distress
HEENT: Normocephalic, Atraumatic and Moist Mucous Membranes
Respiratory: Clear to Auscultation
Cardiac: Regular Rhythm and S1/S2; Negative Murmur, Rub or Gallop
GI: Soft, Nontender, Nondistended and Normal Bowel Sounds; Negative Organomegaly
Rectal: Deferred by Provider
Musculoskeletal: No Clubbing, No Cyanosis and No Edema
Skin: Negative Rash
Neuro: Nonfocal/Grossly Intact
[2024-02-20 15:20] VITALS: BP 75/42
[2024-02-20 20:00] VITALS: BP 80/44
[2024-02-21 11:27] VITALS: BP 84/55
--- NOTE | 2024-02-21 14:05 | CM ---
Addendum entered by Sully Veronica RN 02/21/24 14:08:
Plan: Discharge back to [facility].
Call report to:
Fax report to:
Medical necessity and transport on chart.
Original Note:
Reviewed the chart notes and spoke with the attending. Plan is for patient to discharge tomorrow back to [facility] on hospice. CM spoke with Arti Willis (Guardian) and updated on the plan and discussed the IMM. CM continues to be
available to patient/family and is monitoring medical plan for needs at discharge.
Plan: Discharge back to [facility] Wednesday on hospice.
--- NOTE | 2024-02-21 18:41 | W.PN.HOSP.TC ---
Addendum entered and electronically signed by Issa Kelley MD 02/21/24 20:28:
Attending Addendum-
I saw and evaluated the patient. I reviewed the resident�s note and agree with findings and plan as documented in the resident�s note. patient is very difficult to understand but having very loose stool. per nursing woul dlike to check for c diff.
Full 12 point ROS reviewed and negative except as documented Exam: Gen frail cachectic appearing HEENT- no dobhoff, heart RRR lungs crackles at bases b/l abd soft NT LE trace b/l LE edema Plan:
- Patient placed on comfort care due to multiple comorbidities and poor prognosis-
# Hypovolemic Shock- requiring max pressors
# Acute Hypoxemic Respiratory Failure
# Aspiration PNA
# Dysphagia and Severe PCM
# Acute Anemia
# Severe Electrolyte Imbalance- likely refeeding syndrome
# Seizure D/O
# Psych- Bipolar Schizoaffective
Dispo continue comfort care and morphine/ativan- DC back to [facility] in am on hospice
Time spent coordinating care, review of plan of care with resident, review of records, med rec, consults, notes, labs, rads, d/w nursing, CM dispo planning� 55 mins
Original Note:
Today's Communication/Plan
-
Consult case management for transfer tomorrow for hospice care in skilled nursing
Continue comfort care
Roxanol 5 mg per oral as needed
Lorazepam 1 mg IV as needed
Assessment / Plan
Assessment / Plan
53-year-old female with PMHx of chronic hypotension on midodrine seizures, developmental delay, schizophrenia, bipolar disorder, failure to thrive, multiple recent hospitalizations, was in critically ill condition in ICU, in septic shock requiring
pressors and hypoxemic respiratory failure requiring supplemental oxygen.
Impression:
Persistent shock with hypotension responded to IV fluids and requiring vasopressors
Aspiration syndrome
Enterocolitis.
Abnormal urinalysis concern for UTI.
Acute hypoxic respiratory failure.
Acute on chronic anemia with trending down hemoglobin
Hyponatremia
Hypomagnesemia
Hypoalbuminemia.
Conditions prior to admission:
Severe protein calorie malnutrition with BMI of 13.
Chronic hypertension on midodrine
Developmental delay with dementia.
Schizophrenia/bipolar disorder by history
Chronic ambulatory dysfunction wheelchair-bound.
Plan:
In ICU, her clinical condition was deteriorating, septic shock requiring multiple pressors including midodrine
Septic focus likely from enterocolitis versus aspiration versus UTI
No improvement even with IV fluids, albumin, transfusion, antibiotics
On acute hypoxic respiratory failure requiring supplemental oxygen, weaned off as tolerated by the patient
Anemia requiring transfusion
Patient had altered mental status and was reported pulling out the Dobbhoff tube
Patient is cachectic with BMI of 14
Extensive discussion with patient's power of deputy commonwealth's attorney over phone
Given her deteriorating condition with multiple comorbidities plan was made to transition her to comfort care , no additional aggressive care
Patient was transferred from ICU to [facility]
Continue comfort care with IV morphine, lorazepam, bowel regimen as needed
Comfort feeding
Roxanol 5 mg per oral as needed
Lorazepam 1 mg IV as needed
Anticipated Discharge: Within 24 hours
Subjective/Interval History
-
Date of Service: February 21, 2024
Patient is on room air, breathing comfortably.
She she does not want to be fed.
Few episodes of diarrhea
Objective Data
-
Vital Signs:
Vital Signs
Temp Pulse Resp BP Pulse Ox
98.2 F 93 16 84/55 95
02/21/24 11:27 02/21/24 11:27 02/21/24 11:27 02/21/24 11:27 02/21/24 11:27
I&O
02/20/24 02/21/24 02/22/24
06:59 06:59 06:59
Intake Total 570 / 570 190 / 190
Output Total 350 / 350 500 / 500
Balance 220 / 220 -310 / -310
Review of Systems
-
All other systems: Reviewed and negative (Except as mentioned above)
Physical Exam
-
General: No Apparent Distress
HEENT: Atraumatic and Moist Mucous Membranes
Respiratory: Clear to Auscultation
Cardiac: Regular Rhythm and S1/S2
GI: Soft, Nontender, Nondistended and Normal Bowel Sounds
Musculoskeletal: No Clubbing, No Cyanosis and No Edema
Neuro: Awake and Other (Nods head, follows simple commands but not conversive)
--- NOTE | 2024-02-21 22:34 | W.DCSUMMARY ---
Addendum entered and electronically signed by Issa Kelley MD 02/22/24 20:36:
Attending Addendum:
Read reviewed and agree. See same day progress note for additional details.
Jerardo Kelley MD
Original Note:
Documented by User: Vivian Duncan MD, Resident 02/22/24 18:37
Discharge Summary
Discharge Data
Date of Admission: 02/08/24
Date of Discharge: 02/22/24
-
Pending Results: No
Hospital Course
DISCHARGE DIAGNOSIS:
1.Acute hypoxemic respiratory failure
2.Hypovolemic shock requiring pressors
3.Severe protein calorie malnutrition
4.Severe electrolyte imbalance
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
HOSPITAL COURSE:
53-year-old F with PMHx of chronic hypotension on midodrine, seizures, developmental delay, schizophrenia, bipolar disorder and history of UTI presented to ER with hypotension and fever from her [facility] ([facility]) . In the ER she was febrile to
100.7 �F, pulse rate 92, breathing at 19 breaths/min, hypotensive to 92/60 and saturating 98% on room air. Labs showed WBC 8.1, Hb 10.7, platelets 241, sodium 126, chloride 92, glucose 63, calcium 6.9 and albumin level 1.9. UA showed moderate
urine bacteria with 11�15 urine WBC and trace leukocyte esterase. Her COVID antigen is negative. CXR showed no acute cardiopulmonary process, and CT abdomen/pelvis showed diffuse colonic and small bowel wall thickening which could represent
enterocolitis with no intestinal obstruction or free air seen. Patient given calcium gluconate, D50, and 2L of IVF with NS 0.9%. Due to concern for aspiration and sepsis with hypotension, she was transferred to ICU for further care. Septic shock
was suspected likely due to enterocolitis versus aspiration pneumonitis. Infectious workup was positive for urine E. coli, negative for urine Legionella and streptococcal antigens, blood culture, negative for toxigenic C. difficile. She was started
on Zosyn later transitioned to Unasyn, completed 7-day course. Started on pressors vasopressin, Levophed, midodrine, IV fluids. Tube feeds were started after Dobbhoff tube placement. There was severe electrolyte imbalance, possibly due to
refeeding syndrome. Tube feeds were held, electrolytes repleted and feeding was resumed at trickle rate. Ulcer prophylaxis with IV PPI was also given, aspiration precautions in place. PEG tube placement was considered at some point, and it was
planned to get an endoscopy during PEG tube placement as she had an episode of hematochezia with acute on chronic anemia, but it was put on hold because of the patient's critical condition.
During her ICU stay, she developed hyponatremia and acute hypoxemic respiratory failure requiring supplemental oxygen, chest x-ray showed evidence of volume overload, IV fluids were held, diuresed with Lasix with improvement of her condition. Her
oxygen requirements were improving and she is weaned off oxygen as tolerated.
She received albumin infusions during her stay with the goal to wean off vasopressor. She received 1 unit packed RBC when her hemoglobin was 7.1.
Her sodium trended down to 118, nephrology was consulted, she responded to 3% NS.
Her antiepileptic medications were continued without any changes, with monitoring Depakote levels. However her SSRIs for schizophrenia/bipolar disorder were discontinued due to hyponatremia.
Due to her rapidly deteriorating clinical condition with sepsis, septic shock requiring multiple vasopressors, unable to wean her off of vasopressors, no response to antibiotics, IV fluids, albumin, transfusion and her fluctuant mental status,
severe cachexia/failure to thrive/severe protein calorie malnutrition, an extensive discussion was done with her power of assistant attorney general over phone. Decision was made to transition her to comfort care after discussing her unstable, critically ill
condition after talking to her riggins of assistant attorney general.
Patient being transferred to hospice care. All aggressive measures have been put on hold from the critical care perspective and she is transitioned to comfort care with IV morphine, lorazepam, bowel regimen and comfort feeding.
She is discharged on Ativan, Roxanol and a written prescription was given for these medications.
Discharge Plan
-
Patient Disposition: Detention/SNF
Discharge Diagnosis/Procedures: Severe protein calorie malnutrition ,acute hypoxemic respiratory failure, hypovolemic shock requiring pressors, severe electrolyte imbalance
Diet: As tolerated
Referrals:
Sean Ray DO [Family Provider] -
Yan Hyatt MD [Active] - (GI follow up for anemia to consider colonoscopy if not completed during admission )
Prescriptions:
Continued
acetaminophen 325 mg Tablet
650 mg PO Q4H PRN (Reason: mild pain/temp>100)
Discontinued
benztropine 0.5 MG tablet
0.5 mg PO TID
risperidone 1 mg Tablet
1 mg PO DAILY
fluoxetine 20 mg capsule
20 mg PO BID
calcium carbonate-vitamin D3 [Oyster Shell Calcium-Vit D3] 500 mg-5 mcg (200 unit) Tablet
1 tab PO TID Qty: 0
magnesium oxide 500 mg Tablet
500 mg PO BID 30 Days Qty: 60 0RF
midodrine 5 mg Tablet
5 mg PO TID@0800,1300,1800 30 Days Qty: 90 0RF
alprazolam 0.5 mg tablet
0.5 mg PO DAILY
aspirin 81 mg Tablet,Chewable
81 mg PO DAILY Qty: 90 0RF
multivitamin Tablet
1 tab PO DAILY
divalproex 250 mg Tablet,Delayed Release (Dr/Ec)
500 mg PO HS
divalproex 250 mg tablet,delayed release (DR/EC)
250 mg PO DAILY
magnesium hydroxide [Milk of Magnesia] 400 mg/5 mL Suspension
30 ml PO DAILY PRN (Reason: constipation)
bisacodyl [Dulcolax (bisacodyl)] 10 mg Suppository
10 mg RI DAILY PRN (Reason: if mom ineffective)
Fleet Enema 19-7 gram/118 mL Enema
118 ml RI DAILY PRN (Reason: if dulcolax ineffective)
potassium chloride 10 mEq tablet extended release
10 meq PO HS Qty: 30 0RF
Discharge Orders:
Discharge Patient (As Directed); Ordered 02/22/24
Ordered By: Vivian Duncan
Discharge Date and Time
Discharge Date/Time: 02/22/24 20:02
Print Language: ANDORRAN

Documented by User: Issa Kelley MD 02/22/24 20:33
Discharge Summary
Discharge Data
Date of Admission: 02/08/24
Date of Discharge: 02/22/24
Discharge Plan
-
Patient Disposition: Detention/SNF
Discharge Diagnosis/Procedures: Severe protein calorie malnutrition ,acute hypoxemic respiratory failure, hypovolemic shock requiring pressors, severe electrolyte imbalance
Diet: As tolerated
Referrals:
Sean Ray DO [Family Provider] -
Yan Hyatt MD [Active] - (GI follow up for anemia to consider colonoscopy if not completed during admission )
Prescriptions:
Continued
acetaminophen 325 mg Tablet
650 mg PO Q4H PRN (Reason: mild pain/temp>100)
Discontinued
benztropine 0.5 MG tablet
0.5 mg PO TID
risperidone 1 mg Tablet
1 mg PO DAILY
fluoxetine 20 mg capsule
20 mg PO BID
calcium carbonate-vitamin D3 [Oyster Shell Calcium-Vit D3] 500 mg-5 mcg (200 unit) Tablet
1 tab PO TID Qty: 0
magnesium oxide 500 mg Tablet
500 mg PO BID 30 Days Qty: 60 0RF
midodrine 5 mg Tablet
5 mg PO TID@0800,1300,1800 30 Days Qty: 90 0RF
alprazolam 0.5 mg tablet
0.5 mg PO DAILY
aspirin 81 mg Tablet,Chewable
81 mg PO DAILY Qty: 90 0RF
multivitamin Tablet
1 tab PO DAILY
divalproex 250 mg Tablet,Delayed Release (Dr/Ec)
500 mg PO HS
divalproex 250 mg tablet,delayed release (DR/EC)
250 mg PO DAILY
magnesium hydroxide [Milk of Magnesia] 400 mg/5 mL Suspension
30 ml PO DAILY PRN (Reason: constipation)
bisacodyl [Dulcolax (bisacodyl)] 10 mg Suppository
10 mg RI DAILY PRN (Reason: if mom ineffective)
Fleet Enema 19-7 gram/118 mL Enema
118 ml RI DAILY PRN (Reason: if dulcolax ineffective)
potassium chloride 10 mEq tablet extended release
10 meq PO HS Qty: 30 0RF
Discharge Orders:
Discharge Patient (As Directed); Ordered 02/22/24
Ordered By: Vivian Duncan
Discharge Date and Time
Discharge Date/Time: 02/22/24 20:02
Print Language: ANDORRAN
[2024-02-21 23:36] VITALS: BP 90/50
--- NOTE | 2024-02-22 07:13 | W.DS.TRANS ---
DC Summary - Mold Laminator
-
Discharge Instructions:
Instructions:
Stand-Alone Forms:
Changes to Home Medications: Yes
Discharge Medications:
DC Medications w/original date entered in [facility]
benztropine 0.5 mg tablet 0.5 mg PO TID Neurological Condition 01/19/13
risperidone 1 mg tablet 1 mg PO DAILY Mental Health/Anxiety 10/17/22
fluoxetine 20 mg capsule 20 mg PO BID Depression 12/11/22
calcium carbonate 500 mg-vitamin D3 5 mcg (200 unit) tablet (Oyster Shell Calcium-Vitamin D3) 1 tab PO TID vitamin ##0 12/13/22
magnesium oxide 500 mg PO BID 30 days #60 tabs 12/25/22
midodrine 5 mg tablet 5 mg PO TID@0800,1300,1800 30 days #90 tabs 12/25/22
acetaminophen 325 mg tablet 650 mg PO Q4H PRN mild pain/temp>100 03/20/23
alprazolam 0.5 mg tablet 0.5 mg PO DAILY Mental Health/Anxiety 03/20/23
aspirin 81 mg chewable tablet 81 mg PO DAILY #90 tabs 03/24/23
divalproex 250 mg tablet,delayed release 250 mg PO DAILY Seizures 07/25/23
divalproex 250 mg tablet,delayed release 500 mg PO HS Seizures 07/25/23
multivitamin 1 tab PO DAILY Supplement 07/25/23
bisacodyl 10 mg rectal suppository (Dulcolax (bisacodyl)) 10 mg [place] DAILY PRN if mom ineffective 11/24/23
magnesium hydroxide 400 mg/5 mL oral suspension (Milk of Magnesia) 30 ml PO DAILY PRN constipation 11/24/23
sodium phosphates 19 gram-7 gram/118 mL enema (Fleet Enema) 118 ml VA DAILY PRN if dulcolax ineffective 11/24/23
potassium chloride 10 mEq tablet,extended release 10 meq PO HS #30 tabs 12/01/23
Home Medication Changes
Discontinue all the above medications, she is transitioned to hospice care
Pending Results: No
[2024-02-22 07:30] VITALS: BP 91/55
--- NOTE | 2024-02-22 08:31 | W.PN.HOSP.TC ---
Addendum entered and electronically signed by Issa Kelley MD 02/22/24 20:36:
Attending Addendum-
I saw and evaluated the patient. I reviewed the resident�s note and agree with findings and plan as documented in the resident�s note. sleep comfortably. 'im ready to go home' Full 12 point ROS reviewed and negative except as documented Exam: Gen
frail cachectic appearing HEENT- NC AT, heart RRR lungs crackles at bases b/l abd soft NT LE trace b/l LE edema Plan:
- Patient placed on comfort care due to multiple comorbidities and poor prognosis-
# Hypovolemic Shock- requiring max pressors
# Acute Hypoxemic Respiratory Failure
# Aspiration PNA
# Dysphagia and Severe PCM
# Acute Anemia
# Severe Electrolyte Imbalance- likely refeeding syndrome
# Seizure D/O
# Psych- Bipolar Schizoaffective
Dispo DC back to [facility] in on hospice
Time spent coordinating care, review of plan of care with resident, review of records, med rec, consults, notes, labs, rads, d/w nursing, CM dispo planning transition of care, narc script written� 35 mins
Original Note:
Today's Communication/Plan
-
Discharged to [facility] for hospice
Assessment / Plan
Assessment / Plan
53-year-old female with PMHx of chronic hypotension on midodrine seizures, developmental delay, schizophrenia, bipolar disorder, failure to thrive, multiple recent hospitalizations, was in critically ill condition in ICU, in septic shock requiring
pressors and hypoxemic respiratory failure requiring supplemental oxygen.
Impression:
Persistent shock with hypotension responded to IV fluids and requiring vasopressors
Aspiration syndrome
Enterocolitis.
Abnormal urinalysis concern for UTI.
Acute hypoxic respiratory failure.
Acute on chronic anemia with trending down hemoglobin
Hyponatremia
Hypomagnesemia
Hypoalbuminemia.
Conditions prior to admission:
Severe protein calorie malnutrition with BMI of 13.
Chronic hypertension on midodrine
Developmental delay with dementia.
Schizophrenia/bipolar disorder by history
Chronic ambulatory dysfunction wheelchair-bound.
Plan:
In ICU, her clinical condition was deteriorating, septic shock requiring multiple pressors including midodrine
Septic focus likely from enterocolitis versus aspiration versus UTI
No improvement even with IV fluids, albumin, transfusion, antibiotics
On acute hypoxic respiratory failure requiring supplemental oxygen, weaned off as tolerated by the patient
Anemia requiring transfusion
Patient had altered mental status and was reported pulling out the Dobbhoff tube
Patient is cachectic with BMI of 14
Extensive discussion with patient's power of banking attorney over phone
Given her deteriorating condition with multiple comorbidities plan was made to transition her to comfort care , no additional aggressive measures
Patient was transferred from ICU to [facility]
Continue comfort care with IV morphine, lorazepam, bowel regimen as needed
Comfort feeding
Roxanol 5 mg per oral as needed
Lorazepam 1 mg IV as needed
Patient patient will be discharged to [facility] for hospice care.
Anticipated Discharge: Today
Subjective/Interval History
-
Date of Service: February 22, 2024
Patient has refused her meals yesterday, she had 2 episodes of loose stools.
She is conversing, trying to tell something, nods her head to verbal commands but she does not report any pain. As per the nursing she remains oriented to herself most of the time.
Objective Data
-
Vital Signs:
Vital Signs
Temp Pulse Resp BP Pulse Ox
98.5 F 100 16 90/50 96
02/21/24 23:36 02/21/24 23:36 02/21/24 23:36 02/21/24 23:36 02/21/24 23:36
I&O
02/21/24 02/22/24 02/23/24
06:59 06:59 06:59
Intake Total 190 / 190 120 / 120
Output Total 500 / 500 350 / 350
Balance -310 / -310 -230 / -230
Review of Systems
-
All other systems: Reviewed and negative (Except as mentioned above)
Physical Exam
-
General: No Apparent Distress
HEENT: Atraumatic
Respiratory: Clear to Auscultation (Anteriorly)
Cardiac: S1/S2
GI: Nontender, Nondistended and Normal Bowel Sounds
Neuro: Awake and Other (Patient is minimally conversant)
[2024-02-22 19:16] VITALS: BP 90/54
== END 2024-02-22 20:02 | DRG 871 ==
LOC: 2 NORTH 04:40
PROVIDERS: Internal Medicine; Internal Medicine Critical Care Medicine; Nurse Practitioner Adult Health; Nurse Practitioner Primary Care; Radiology Diagnostic Radiology; Student in an Organized Health Care Education/Training Program; ADMITTING PHYSICIAN Hospitalist; ATTENDING PHYSICIAN Family Medicine; CONSULT PHYSICIAN Internal Medicine Critical Care Medicine; CONSULT PHYSICIAN Internal Medicine Gastroenterology; CONSULT PHYSICIAN Specialist; CONSULT PHYSICIAN Student in an Organized Health Care Education/Training Program; EMERGENCY PHYSICIAN Student in an Organized Health Care Education/Training Program; FAMILY PHYSICIAN Internal Medicine
PROC: 0DH67UZ Insertion of Feeding Device into Stomach, Via Natural or Artificial Opening (ICD-10-PCS; 2024-02-08)
PROC: 02HV33Z Insertion of Infusion Device into Superior Vena Cava, Percutaneous Approach (ICD-10-PCS; 2024-02-08)
PROC: 30243N1 Transfusion of Nonautologous Red Blood Cells into Central Vein, Percutaneous Approach (ICD-10-PCS; 2024-02-15)
DX: A41.9 Sepsis, unspecified organism (principal); E43 Unspecified severe protein-calorie malnutrition; J69.0 Pneumonitis due to inhalation of food and vomit; R57.1 Hypovolemic shock; J96.01 Acute respiratory failure with hypoxia; R65.21 Severe sepsis with septic shock; G92.8 Other toxic encephalopathy; Z68.1 Body mass index [BMI] 19.9 or less, adult; N39.0 Urinary tract infection, site not specified; R64 Cachexia; F03.93 Unspecified dementia, unspecified severity, with mood disturbance; E22.2 Syndrome of inappropriate secretion of antidiuretic hormone; Z51.5 Encounter for palliative care; K52.9 Noninfective gastroenteritis and colitis, unspecified; E78.00 Pure hypercholesterolemia, unspecified; F31.9 Bipolar disorder, unspecified; G40.909 Epilepsy, unspecified, not intractable, without status epilepticus; M41.9 Scoliosis, unspecified; R26.2 Difficulty in walking, not elsewhere classified; E83.51 Hypocalcemia; D63.8 Anemia in other chronic diseases classified elsewhere; E16.2 Hypoglycemia, unspecified; R62.50 Unspecified lack of expected normal physiological development in childhood; E88.09 Other disorders of plasma-protein metabolism, not elsewhere classified; F25.0 Schizoaffective disorder, bipolar type; E83.42 Hypomagnesemia; E86.1 Hypovolemia; I50.9 Heart failure, unspecified; I11.0 Hypertensive heart disease with heart failure; I95.89 Other hypotension; R13.10 Dysphagia, unspecified; R62.7 Adult failure to thrive; E87.6 Hypokalemia; F41.9 Anxiety disorder, unspecified; J30.1 Allergic rhinitis due to pollen; Z99.3 Dependence on wheelchair; Z88.8 Allergy status to other drugs, medicaments and biological substances; Z11.52 Encounter for screening for COVID-19; Z79.82 Long term (current) use of aspirin; Z87.440 Personal history of urinary (tract) infections
CPT/HCPCS: 36597; 71045; 74018; 74177; 76000; 76604; 80048; 80051; 80053; 80164; 81003; 81015; 82040; 82533; 82570; 82607; 82805; 82962; 83540; 83550; 83605; 83735; 83880; 83930; 83935; 84100; 84145; 84295; 84300; 84443; 85014; 85018; 85025; 85027; 85610; 85730; 86480; 86850; 86900; 86901; 86920; 87040; 87077; 87086; 87186; 87324; 87389; 87449; 87502; 87641; 87811; 87899; 92610; 93005; 96361; 96374; 96375; 97110; 97163; 97167; 97530; 99285; C1751; C1769; P9016; P9045; P9047; Q9967